=== PATIENT | male | born 1930 | race Caucasian/White ===

== ENCOUNTER 2017-07-03 10:24 | Inpatient (IN) | payer MEDICARE, OTHER ==
[~2017-07-03] VITALS: Ht 177.8 cm; Wt 112.2 kg
[~2017-07-03 10:24] MED LIST: ACET325T9 PO; APIX2.5T PO; ATOR20TA58 PO; CLON0.5T3 PO; CLOP75TA57 PO; DILT180C29 PO; DOCU-109 PO; FLUT9.9S NS; FURO-68 PO; FURO40TA4 PO; IPRA12.9 IH; IPRA3AMP NEB; LACT1CAP19 PO; LEVO500T59 PO; METH40VI IV; METO50TA6 PO; NIAC500T PO; OSEL75CA PO; POLY17PO5 PO; PRED-220 PO; SIMV40TA3 PO; TIOT18CA IH
[2017-07-03 10:56] VITALS: BP 146/64
[2017-07-03] MEDS ORDERED: ONDANSETRON ODT 4 MG TAB.RAPDIS PO PRN (11:00)
[2017-07-03] MEDS ORDERED: ACETAMINOPHEN 325 MG TABLET PO PRN (11:00)
--- NOTE | 2017-07-03 11:06 | NUR ---
Swing admission note: PT admitted to shelter services for PT/OT strengthening and steroid therapy. See completed assessment per flow sheet No behaviors noted this shift, pt is axox4 Pain: Pt has no complaints of pain Respiratory: Pt is on 2 L of oxygen therapy at home as well. PT is getting breathing treatments four times per day r/t COPD exacerbation Skin: Patient skin in friable, however intact. PT has some minor bruising noted. ADL functional Status: Required limited assistance with ADL. PT is a stand by assist when ambulating with his walker. PT walking to shower and completing shower with some assistance from FIBER DESIGNER. PT is using shower chair. PT/OT notified of orders. Family very involved in patient care. Brenna Martinez RN BSN CMSRN [place]-
--- NOTE | 2017-07-03 11:10 | NUR ---
Swing Bed Nursing Note Patient Handbook for Long Term given to patient. Nursing Problem:Patient admitted to Long Term Unit for PT/OT eval and treat. PT was in the hospital from COPD Exacerbation and went in to AFIB RVR. PT has now converted to SR. PT is on home Oxygen therapy at 2L. Cognitive/Behavioral: PT felder Ax0x4. PT compliant with medications and appropriate to situation. . Pain: PT has no complaint of pain. Patient takes scheduled tylenol at HS. Respiratory Status: PT COPD exacerbation. PT on home O2 therapy continuous 2 L. PT is getting RT Duoneb treatment QID while in hospital, r/t substitution for inhalers. PT on solumedrol 40 IV daily. PO Levaquin initiated today. Skin:PT skin is friable, however, intact. PT has minimal bruising. Bowel/Bladder Continence:PT is continent of bowel and bladder and is able to ambulate to the restroom. ADL Functional Status: PT is able to transfer into and out of bed with minimal assistance. PT uses a walker to ambulate with stand by assistance. PT can feed himself, and wipe his bottom when using restroom. PT needs some assistance with showering. Pt uses shower chair when in shower. PT is able to dress self, however, still requires some assistance getting dressed. PT gets SOB when ambulating far distances. Collin VALIENTE CMSRN [facility] Addendum: 07/03/17 at 1136 by COLLIN BARRERA RN PT was also diagnosed with influenza A late into his stay in ICU yesterday. PT is on airborn precautions and started on tamiflu.
[2017-07-03] MEDS ORDERED: IPRATRPIUM/ALBUTEROL 0.5/2.5MG 3 ML NEBU. ONE (11:24)
[2017-07-03] MEDS: levoFLOXacin 250 MG TABLET PO SCH (11:30)
[2017-07-03] MEDS: clonazePAM 0.5 MG TABLET PO SCH ×2 (14:00→22:08)
[2017-07-03 14:26] VITALS: BP 115/72
[2017-07-03] MEDS: IPRATRPIUM/ALBUTEROL 0.5/2.5MG 3 ML NEBU. NEB SCH ×2 (16:58→21:02)
[2017-07-03] MEDS: ACETAMINOPHEN 325 MG TABLET PO SCH (22:06)
[2017-07-03] MEDS: DOCUSATE SODIUM 100 MG CAPSULE PO SCH (22:06)
[2017-07-03] MEDS: METOPROLOL TART IMMED RELEASE 50 MG TABLET PO SCH (22:07)
[2017-07-03] MEDS: OSELTAMIVIR 75 MG CAPSULE PO SCH (22:07)
[2017-07-03] MEDS: APIXABAN 2.5 MG TABLET PO SCH (22:08)
[2017-07-03] MEDS: ATORVASTATIN CALCIUM 20 MG TABLET PO SCH (22:08)
[2017-07-03] MEDS: LACTOBACILLUS RHAMNOSUS GG 1 CAPSULE. PO SCH (22:09)
[2017-07-03 22:31] VITALS: BP 149/78
[2017-07-04 00:02] VITALS: BP 136/65
[2017-07-04 05:17] VITALS: BP 126/65
[2017-07-04] MEDS: levoFLOXacin 250 MG TABLET PO SCH (05:32)
[2017-07-04] MEDS: IPRATRPIUM/ALBUTEROL 0.5/2.5MG 3 ML NEBU. NEB SCH ×3 (05:47→21:46)
[2017-07-04] MEDS: LACTOBACILLUS RHAMNOSUS GG 1 CAPSULE. PO SCH ×2 (08:33→19:35)
[2017-07-04] MEDS: OSELTAMIVIR 75 MG CAPSULE PO SCH ×2 (08:33→19:35)
[2017-07-04] MEDS: METOPROLOL TART IMMED RELEASE 50 MG TABLET PO SCH ×2 (08:33→19:35)
[2017-07-04] MEDS: DOCUSATE SODIUM 100 MG CAPSULE PO SCH ×2 (08:33→19:36)
[2017-07-04] MEDS: clonazePAM 0.5 MG TABLET PO SCH ×3 (08:33→19:36)
[2017-07-04] MEDS: APIXABAN 2.5 MG TABLET PO SCH ×2 (08:33→19:38)
[2017-07-04] MEDS: FUROSEMIDE 40 MG TABLET PO SCH (08:34)
[2017-07-04] MEDS: POLYETHYLENE GLYCOL 3350 17 GM PACKET. PO SCH (08:34)
[2017-07-04] MEDS: CLOPIDOGREL BISULFATE 75 MG TABLET PO SCH (08:34)
[2017-07-04] MEDS: methylPREDNISolone SOD SUCC PF 40 MG/ML VIAL. IV SCH (08:34)
--- NOTE | 2017-07-04 10:54 | NUR ---
Swing Bed Nursing Note Nursing Problem: generalized weakness and unsteadiness after recent hospitalization for copd exac. pt stayed for pt/ot for strengthening to return home alone Cognitive/Behavioral: x4, pleasant and cooperative Pain: no c/o pain Respiratory Status: diminished soa with exertion, lungs with less coarseness throughout, O2 at 2 L/min as at home, cont RT treatments TID Skin: thin and fragile, dry and scaly Bowel/Bladder Continence: cont of bowel and bladder ADL Functional Status: standby assist with walker for amb, pt feeds self, dresses self with setup,
[2017-07-04 18:40] VITALS: BP 133/59
[2017-07-04] MEDS: ATORVASTATIN CALCIUM 20 MG TABLET PO SCH (19:35)
[2017-07-04] MEDS: ACETAMINOPHEN 325 MG TABLET PO SCH (19:36)
--- NOTE | 2017-07-05 00:56 | NUR ---
Swing Bed Nursing Note Patient Handbook for [facility] given to patient. Nursing Problem:Patient admitted to [facility] for PT/OT eval and treat. Cognitive/Behavioral: PT felder Ax0x4. PT compliant with medications and appropriate to situation. . Pain: PT has no complaint of pain. Patient takes scheduled tylenol at HS. Respiratory Status: PT COPD exacerbation. PT on home O2 therapy continuous 2 L. PT is getting RT Duoneb treatment QID while in hospital, r/t substitution for inhalers. PT on solumedrol 40 IV daily. PO Levaquin initiated today. Skin:PT skin is friable, however, intact. PT has minimal bruising. Bowel/Bladder Continence:PT is continent of bowel and bladder and is able to ambulate to the restroom with 1 Assist with the walker. Patient has some problems with hesitancy. ADL Functional Status: PT is able to transfer into and out of bed with minimal assistance. PT uses a walker to ambulate with stand by assistance. PT can feed himself, and wipe his bottom when using restroom. Patient does require some assistance getting dressed. PT gets SOB when ambulating far distances.
[2017-07-05] MEDS: levoFLOXacin 250 MG TABLET PO SCH ×2 (05:05→08:56)
[2017-07-05 05:38] VITALS: BP 161/64
[2017-07-05] MEDS: IPRATRPIUM/ALBUTEROL 0.5/2.5MG 3 ML NEBU. NEB SCH ×3 (05:59→22:07)
[2017-07-05] MEDS: APIXABAN 2.5 MG TABLET PO SCH ×2 (08:56→20:49)
[2017-07-05] MEDS: FUROSEMIDE 40 MG TABLET PO SCH (08:56)
[2017-07-05] MEDS: LACTOBACILLUS RHAMNOSUS GG 1 CAPSULE. PO SCH ×2 (08:56→20:49)
[2017-07-05] MEDS: clonazePAM 0.5 MG TABLET PO SCH ×4 (08:56→20:49)
[2017-07-05] MEDS: DOCUSATE SODIUM 100 MG CAPSULE PO SCH ×2 (08:56→20:50)
[2017-07-05] MEDS: OSELTAMIVIR 75 MG CAPSULE PO SCH ×2 (08:57→20:49)
[2017-07-05] MEDS: POLYETHYLENE GLYCOL 3350 17 GM PACKET. PO SCH (08:57)
[2017-07-05] MEDS: METOPROLOL TART IMMED RELEASE 50 MG TABLET PO SCH ×2 (08:57→20:49)
[2017-07-05] MEDS: methylPREDNISolone SOD SUCC PF 40 MG/ML VIAL. IV SCH (08:57)
[2017-07-05] MEDS: CLOPIDOGREL BISULFATE 75 MG TABLET PO SCH (08:57)
[2017-07-05 18:37] VITALS: BP 138/73
[2017-07-05] MEDS: ACETAMINOPHEN 325 MG TABLET PO SCH (20:49)
[2017-07-05] MEDS: ATORVASTATIN CALCIUM 20 MG TABLET PO SCH (20:49)
--- NOTE | 2017-07-06 04:01 | NUR ---
Swing Bed Nursing Note Patient Handbook for Senior Living given to patient. Nursing Problem:Patient admitted to Senior Living Unit for PT/OT eval and treat. Cognitive/Behavioral: PT felder Ax0x4. PT compliant with medications and appropriate to situation. . Pain: PT has no complaint of pain. Patient takes scheduled tylenol at HS. Respiratory Status: PT COPD exacerbation. PT on home O2 therapy continuous 2 L. PT is getting RT Duoneb treatment QID while in hospital, r/t substitution for inhalers. PT on solumedrol 40 IV daily. PO Levaquin initiated today. Skin:PT skin is friable, however, intact. PT has minimal bruising. Bowel/Bladder Continence:PT is continent of bowel and bladder and is able to ambulate to the restroom with 1 Assist with the walker. Patient has some problems with hesitancy. ADL Functional Status: PT is able to transfer into and out of bed with minimal assistance. PT uses a walker to ambulate with stand by assistance. PT can feed himself, and wipe his bottom when using restroom. Patient does require some assistance getting dressed. PT gets SOB when ambulating far distances.
[2017-07-06 05:41] VITALS: BP 147/65
[2017-07-06] MEDS: IPRATRPIUM/ALBUTEROL 0.5/2.5MG 3 ML NEBU. NEB SCH ×3 (05:54→20:05)
[2017-07-06] MEDS: methylPREDNISolone SOD SUCC PF 40 MG/ML VIAL. IV SCH (08:38)
[2017-07-06] MEDS: clonazePAM 0.5 MG TABLET PO SCH ×3 (08:38→20:09)
[2017-07-06] MEDS: FUROSEMIDE 40 MG TABLET PO SCH (08:38)
[2017-07-06] MEDS: LACTOBACILLUS RHAMNOSUS GG 1 CAPSULE. PO SCH ×2 (08:38→20:10)
[2017-07-06] MEDS: DOCUSATE SODIUM 100 MG CAPSULE PO SCH ×2 (08:38→20:10)
[2017-07-06] MEDS: METOPROLOL TART IMMED RELEASE 50 MG TABLET PO SCH ×2 (08:38→20:10)
[2017-07-06] MEDS: APIXABAN 2.5 MG TABLET PO SCH ×2 (08:38→20:09)
[2017-07-06] MEDS: POLYETHYLENE GLYCOL 3350 17 GM PACKET. PO SCH (08:38)
[2017-07-06] MEDS: OSELTAMIVIR 75 MG CAPSULE PO SCH ×2 (08:39→20:10)
[2017-07-06] MEDS: CLOPIDOGREL BISULFATE 75 MG TABLET PO SCH (08:39)
--- NOTE | 2017-07-06 09:42 | NUR ---
Swing Bed Nursing Note Patient Handbook for Group Home given to patient. Nursing Problem:Patient admitted to Group Home Unit for PT/OT eval and treat. Cognitive/Behavioral: PT felder Ax0x4. PT compliant with medications and appropriate to situation. . Pain: PT has no complaint of pain. Patient takes scheduled tylenol at HS. Respiratory Status: PT COPD exacerbation. PT on home O2 therapy continuous 2 L. PT is getting RT Duoneb treatment QID while in hospital, r/t substitution for inhalers. PT on solumedrol 40 IV daily. Is on PO levaquin. Pt reports having difficulty coughing sputum up. Pt does sound more coarse in anterior lung. Skin:PT skin is friable, however, intact. PT has minimal bruising. Bowel/Bladder Continence:PT is continent of bowel and bladder and is able to ambulate to the restroom with 1 Assist with the walker. Patient has some problems with hesitancy. ADL Functional Status: PT is able to transfer into and out of bed with minimal assistance. PT uses a walker to ambulate with stand by assistance. PT can feed himself, and wipe his bottom when using restroom. Patient does require some assistance getting dressed. PT gets SOB when ambulating far distances.
[2017-07-06 18:35] VITALS: BP 120/67
[2017-07-06 19:38] VITALS: BP 132/60
[2017-07-06] MEDS: ACETAMINOPHEN 325 MG TABLET PO SCH (20:10)
[2017-07-06] MEDS: ATORVASTATIN CALCIUM 20 MG TABLET PO SCH (20:10)
--- NOTE | 2017-07-07 01:38 | NUR ---
Swing Bed Nursing Note Patient Handbook for Group Home given to patient. Nursing Problem:Patient admitted to Group Home Unit for PT/OT eval and treat. Cognitive/Behavioral: PT felder Ax0x4. PT compliant with medications and appropriate to situation. Very pleasant and talkative, seems to be in good spirits. Pain: PT has no complaint of pain. Patient takes scheduled tylenol at HS. Respiratory Status: PT COPD exacerbation. PT on home O2 therapy continuous 2 L. PT is getting RT Duoneb treatment QID while in hospital, r/t substitution for inhalers. PT on solumedrol 40 IV daily. PO Levaquin as well as getting tamaflu. He was started on musinex today. Skin:PT skin is friable, however, intact. PT has minimal bruising. Bowel/Bladder Continence:PT is continent of bowel and bladder and is able to ambulate to the restroom with 1 Assist with the walker. Patient has some problems with hesitancy. Last BM was today, it was loose, asked that I hold his colace. ADL Functional Status: PT is able to transfer into and out of bed with minimal assistance. PT uses a walker to ambulate with stand by assistance. PT can feed himself, and wipe his bottom when using restroom. Patient does require some assistance getting dressed. PT gets SOB when ambulating far distances.
[2017-07-07] MEDS: levoFLOXacin 250 MG TABLET PO SCH (05:20)
[2017-07-07] MEDS: IPRATRPIUM/ALBUTEROL 0.5/2.5MG 3 ML NEBU. NEB SCH ×3 (05:42→20:17)
[2017-07-07] MEDS: METOPROLOL TART IMMED RELEASE 50 MG TABLET PO SCH ×2 (08:22→21:04)
[2017-07-07] MEDS: CLOPIDOGREL BISULFATE 75 MG TABLET PO SCH (08:22)
[2017-07-07] MEDS: FUROSEMIDE 40 MG TABLET PO SCH (08:22)
[2017-07-07] MEDS: clonazePAM 0.5 MG TABLET PO SCH ×3 (08:22→21:04)
[2017-07-07] MEDS: APIXABAN 2.5 MG TABLET PO SCH ×2 (08:22→21:04)
[2017-07-07] MEDS: OSELTAMIVIR 75 MG CAPSULE PO SCH ×2 (08:23→21:04)
[2017-07-07] MEDS: DOCUSATE SODIUM 100 MG CAPSULE PO SCH ×2 (08:23→21:04)
[2017-07-07] MEDS: LACTOBACILLUS RHAMNOSUS GG 1 CAPSULE. PO SCH ×2 (08:23→21:03)
[2017-07-07] MEDS: methylPREDNISolone SOD SUCC PF 40 MG/ML VIAL. IV SCH (08:23)
[2017-07-07] MEDS: POLYETHYLENE GLYCOL 3350 17 GM PACKET. PO SCH (09:00)
[2017-07-07 10:44] VITALS: BP 117/62
[2017-07-07 15:27] VITALS: BP 124/77
--- NOTE | 2017-07-07 18:03 | NUR ---
Swing Bed Nursing Note Nursing Problem:Patient admitted to [facility] Unit for PT/OT eval and treat. Cognitive/Behavioral: PT felder Ax0x4. PT compliant with medications and appropriate to situation. Very pleasant and talkative, seems to be in good spirits. Pain: PT has no complaint of pain. Patient takes scheduled tylenol at HS. Respiratory Status: PT COPD exacerbation. PT on home O2 therapy continuous 2 L. PT is getting RT Duoneb treatment QID while in hospital, r/t substitution for inhalers. PT on solumedrol 40 IV daily. PO Levaquin as well as getting tamiflu. He was started on musinex today. Skin:PT skin is friable, however, intact. PT has minimal bruising. Bowel/Bladder Continence:PT is continent of bowel and bladder and is able to ambulate to the restroom with 1 Assist with the walker. Patient has some problems with hesitancy. Last BM was today, it was loose, asked that I hold his miralax ADL Functional Status: PT is able to transfer into and out of bed with minimal assistance. PT uses a walker to ambulate with stand by assistance. PT can feed himself, and wipe his bottom when using restroom. Patient does require some assistance getting dressed. PT gets SOB when ambulating far distances.
[2017-07-07 19:33] VITALS: BP 132/70
[2017-07-07] MEDS: ACETAMINOPHEN 325 MG TABLET PO SCH (21:04)
[2017-07-07] MEDS: ATORVASTATIN CALCIUM 20 MG TABLET PO SCH (21:04)
--- NOTE | 2017-07-07 22:19 | NUR ---
Swing Bed Nursing Note Nursing Problem: Patient admitted to [facility]-Way Unit for PT/OT eval and treat. Cognitive/Behavioral: Pt is A/Ox4, pleasant. Sitting up in chair watching TV, smiling and interactive when approached by staff. Pain: Pt denies current pain. Given scheduled tylenol at HS. Respiratory Status: Pt with COPD exac. Wears O2 at 2L via NC continuously. Receiving breathing tx from RT, Solu-Medrol 40mg IV daily, Tamiflu, and PO Levaquin. Lung sounds are coarse and diminished. Pt c/o productive cough. Given PRN Mucinex at HS. Skin: Pt's skin is dry, thin and fragile/friable. Coccyx intact. Noted minimal bruising to extremities. Bowel/Bladder Continence: Pt is continent of bowel and bladder and ambulates to bathroom x1 assist. Patient has some problems with urinary hesitancy. LBM today, 07/07/16. ADL Functional Status: Pt is able to transfer into and out of bed with minimal assistance. Pt uses a walker to amb with standby assistance. Pt declined HS snack. Pt dressed for HS with min assist.
[2017-07-08 05:47] VITALS: BP 131/68
[2017-07-08] MEDS: levoFLOXacin 250 MG TABLET PO SCH (05:55)
[2017-07-08] MEDS: IPRATRPIUM/ALBUTEROL 0.5/2.5MG 3 ML NEBU. NEB SCH ×3 (05:58→20:19)
[2017-07-08] MEDS: methylPREDNISolone SOD SUCC PF 40 MG/ML VIAL. IV SCH (08:51)
[2017-07-08] MEDS: DOCUSATE SODIUM 100 MG CAPSULE PO SCH ×2 (08:52→20:30)
[2017-07-08] MEDS: clonazePAM 0.5 MG TABLET PO SCH ×3 (08:52→20:30)
[2017-07-08] MEDS: OSELTAMIVIR 75 MG CAPSULE PO SCH (08:53)
[2017-07-08] MEDS: POLYETHYLENE GLYCOL 3350 17 GM PACKET. PO SCH (08:53)
[2017-07-08] MEDS: LACTOBACILLUS RHAMNOSUS GG 1 CAPSULE. PO SCH ×2 (08:53→20:30)
[2017-07-08] MEDS: CLOPIDOGREL BISULFATE 75 MG TABLET PO SCH (08:53)
[2017-07-08] MEDS: METOPROLOL TART IMMED RELEASE 50 MG TABLET PO SCH ×2 (08:53→20:31)
[2017-07-08] MEDS: FUROSEMIDE 40 MG TABLET PO SCH (08:53)
[2017-07-08] MEDS: APIXABAN 2.5 MG TABLET PO SCH ×2 (08:53→20:30)
[2017-07-08 10:48] VITALS: BP 168/66
[2017-07-08 15:51] VITALS: BP 115/74
[2017-07-08] MEDS ORDERED: FUROSEMIDE 40 MG TABLET PO ONE (16:30)
[2017-07-08] MEDS: ACETAMINOPHEN 325 MG TABLET PO SCH (20:31)
[2017-07-08] MEDS: ATORVASTATIN CALCIUM 20 MG TABLET PO SCH (20:31)
--- NOTE | 2017-07-08 22:07 | NUR ---
Swing Bed Nursing Note Nursing Problem: Patient admitted to [facility] for PT/OT eval and treat. Cognitive/Behavioral: Pt is A/Ox4, pleasant. Pt up in chair, watching basketball game on TV. Talkative when approached. Pain: Pt denies current pain. Given scheduled tylenol at HS. Respiratory Status: Pt with COPD exac. Wears O2 at 2L via NC continuously. Receiving breathing tx from RT, Solu-Medrol 40mg IV daily, Tamiflu, and PO Levaquin. Lung sounds are coarse, diminished and increased wheezing noted. Pt c/o productive cough. Given PRN Mucinex at HS. Pt's lasix increased from 40mg daily to 80mg. Skin: Pt's skin is dry, thin and fragile/friable. Coccyx intact. Noted minimal bruising to extremities. Pt has 3+ edema to bilat extremities. Bowel/Bladder Continence: Pt is continent of bowel and bladder and ambulates to bathroom x1 assist. Patient has some problems with urinary hesitancy. LBM 07/07/16. ADL Functional Status: Pt is able to transfer into and out of bed with minimal assistance. Pt uses a walker to amb with standby assistance. Pt declined HS snack. Pt dressed for HS with min assist.
[2017-07-09] MEDS: levoFLOXacin 250 MG TABLET PO SCH (05:15)
[2017-07-09 05:31] VITALS: BP 116/70
[2017-07-09] MEDS: IPRATRPIUM/ALBUTEROL 0.5/2.5MG 3 ML NEBU. NEB SCH ×3 (05:51→20:34)
--- NOTE | 2017-07-09 08:16 | RAD ---
Indication: Short of air. Technique: Two-view chest radiograph was obtained. Comparison is from July 01, 2017. Findings: There is left basilar atelectasis and/ or infiltrate, new from prior. Lungs otherwise are clear. There is no pleural effusion. The heart is not enlarged. There is no heart failure. Thoracic aorta appears tortuous. Impression: New left basilar atelectasis and/or infiltrate.
[2017-07-09] MEDS: clonazePAM 0.5 MG TABLET PO SCH ×3 (08:23→20:44)
[2017-07-09] MEDS: LACTOBACILLUS RHAMNOSUS GG 1 CAPSULE. PO SCH ×2 (08:23→20:44)
[2017-07-09] MEDS: METOPROLOL TART IMMED RELEASE 50 MG TABLET PO SCH ×2 (08:23→20:44)
[2017-07-09] MEDS: methylPREDNISolone SOD SUCC PF 40 MG/ML VIAL. IV SCH (08:24)
[2017-07-09] MEDS: CLOPIDOGREL BISULFATE 75 MG TABLET PO SCH (08:24)
[2017-07-09] MEDS: FUROSEMIDE 40 MG TABLET PO SCH (08:24)
[2017-07-09] MEDS: APIXABAN 2.5 MG TABLET PO SCH ×2 (08:25→20:44)
[2017-07-09] MEDS: DOCUSATE SODIUM 100 MG CAPSULE PO SCH ×2 (08:27→20:44)
[2017-07-09] MEDS: POLYETHYLENE GLYCOL 3350 17 GM PACKET. PO SCH (08:27)
--- NOTE | 2017-07-09 13:20 | NUR ---
Swing Bed Nursing Note Nursing Problem: Patient admitted to [facility] Unit for PT/OT eval and treat. Cognitive/Behavioral: Pt is A/Ox4, pleasant. Pt is currently sitting up in chair watching television. Pain: Pt denies current pain. Respiratory Status: Pt with COPD exac. Wears O2 at 2L via NC continuously. Receiving breathing tx from RT, Solu-Medrol 40mg IV daily, Tamiflu, and PO Levaquin. Lung sounds are coarse, diminished and increased wheezing noted. Lasix given PO this AM changed to 80mg. Skin: Pt's skin is dry, thin and fragile/friable. Coccyx intact. Noted minimal bruising to extremities. Pt has 3+ edema to bilat extremities. Bowel/Bladder Continence: Pt is continent of bowel and bladder and ambulates to bathroom x1 assist. Patient has some problems with urinary hesitancy. LBM 07/08 ADL Functional Status: Pt is able to transfer into and out of bed with minimal assistance. Pt uses a walker to amb with standby assistance. Dressed with PT/OT today with minimal assist.
[2017-07-09 15:38] VITALS: BP 126/82
[2017-07-09] MEDS: ATORVASTATIN CALCIUM 20 MG TABLET PO SCH (20:44)
[2017-07-09] MEDS: ACETAMINOPHEN 325 MG TABLET PO SCH (20:46)
[2017-07-10] MEDS: IPRATRPIUM/ALBUTEROL 0.5/2.5MG 3 ML NEBU. NEB SCH ×3 (05:21→20:49)
[2017-07-10] MEDS: levoFLOXacin 250 MG TABLET PO SCH (05:29)
[2017-07-10 05:52] VITALS: BP 135/71
--- NOTE | 2017-07-10 08:00 | NUR ---
Swing Bed Nursing Note Nursing Problem: Patient admitted to Care Home Unit for PT/OT eval and treat for gait strengthening. Cognitive/Behavioral: Pt is A/Ox4, pleasant and cooperative with care. Pt sitting up at bedside eating breakfast this morning. Pain: Pt denies current pain. Respiratory Status: Pt has COPD exac. and currently wears O2 at 2L via NC continuously. Continues to receive breathing tx from RT and PO Levaquin. Tamiflu completed and IV SoluMedrol changed to PO prednisone. Lung sounds remain coarse, diminished and wheezy at times noted. Lasix 80mg given PO this AM. Skin: Pt's skin is dry, thin and fragile/friable. Coccyx intact. Noted minimal bruising to extremities. Pt has 3+ edema to bilat extremities. Legs wrapped this morning, advised patient that legs should be wrapped every morning and elevate L.E. to help decrease edema. Bowel/Bladder Continence: Pt is continent of bowel and bladder and ambulates to bathroom x1 assist. Patient has some problems with urinary hesitancy. Able to stand to use urinal. LBM 07/08 ADL Functional Status: Pt is able to transfer into and out of bed with minimal assistance. Pt uses a walker to amb with standby assistance. Dressed with PT/OT today with minimal assist.
[2017-07-10 08:03] LABS: BASO # 0.1 x10^3/uL (0.0-0.2); BASO % 1 % (0-3); EOS % 0 % (0-3); HEMATOCRIT 41.5 % (39.0-53.0); LYMPH # 1.5 x10^3/uL (1.0-4.8); LYMPH % 16 % (24-48); MEAN CORPUSCULAR HEMOGLOBIN 32 pg (25-35); MEAN CORPUSCULAR HGB CONC 34 g/dL (31-37); MEAN CORPUSCULAR VOLUME 95 fL (79-100); MONO # 0.9 x10^3/uL (0.0-1.1); MONO % 10 % (0-9); NEUT # 6.8 x10^3uL (1.8-7.7); NEUT % 73 % (31-73); PLATELET COUNT 184 x10^3/uL (140-400); RED BLOOD COUNT 4.39 x10^6/uL (4.30-5.70); RED CELL DISTRIBUTION WIDTH 12.6 % (11.5-14.5); WHITE BLOOD COUNT 9.3 x10^3/uL (4.0-11.0)
[2017-07-10 08:13] LABS: ALBUMIN 2.8 g/dL (3.4-5.0); ALBUMIN/GLOBULIN RATIO 0.9 (1.0-1.7); CALCIUM 8.6 mg/dL (8.5-10.1); CREATININE 1.6 mg/dL (0.7-1.3); POTASSIUM 4.5 mmol/L (3.5-5.1); TOTAL BILIRUBIN 0.5 mg/dL (0.2-1.0); TOTAL PROTEIN 5.9 g/dL (6.4-8.2)
[2017-07-10] MEDS: clonazePAM 0.5 MG TABLET PO SCH ×3 (09:03→21:11)
[2017-07-10] MEDS: POLYETHYLENE GLYCOL 3350 17 GM PACKET. PO SCH (09:03)
[2017-07-10] MEDS: LACTOBACILLUS RHAMNOSUS GG 1 CAPSULE. PO SCH ×2 (09:03→21:12)
[2017-07-10] MEDS: CLOPIDOGREL BISULFATE 75 MG TABLET PO SCH (09:03)
[2017-07-10] MEDS: APIXABAN 2.5 MG TABLET PO SCH ×2 (09:04→21:11)
[2017-07-10] MEDS: FUROSEMIDE 40 MG TABLET PO SCH (09:05)
[2017-07-10] MEDS: METOPROLOL TART IMMED RELEASE 50 MG TABLET PO SCH ×2 (09:05→21:11)
[2017-07-10] MEDS: DOCUSATE SODIUM 100 MG CAPSULE PO SCH ×2 (09:05→21:13)
[2017-07-10 15:02] VITALS: BP 108/71
--- NOTE | 2017-07-10 19:37 | NUR ---
Swing Bed Nursing Note Nursing Problem: Patient admitted to Intermediate Unit for PT/OT eval and treat for gait strengthening. Cognitive/Behavioral: Pt is A/Ox4, pleasant and cooperative with care. Pt resting in bed at this time. Pain: Pt denies current pain. Respiratory Status: Pt has COPD exac. and currently wears O2 at 2L via NC continuously. Continues to receive breathing tx from RT and PO Levaquin. PO prednisone ordered. Lung sounds remain coarse, diminished and wheezy at times noted. Skin: Pt's skin is dry, thin and fragile/friable. Coccyx intact. Noted minimal bruising to extremities. Pt has 3+ edema to bilat extremities. Legs are wrapped at this time, advised patient that legs should remain wrapped and elevate L.E. to help decrease edema. Bowel/Bladder Continence: Pt is continent of bowel and bladder and ambulates to bathroom x1 assist. Patient has some problems with urinary hesitancy. Able to stand to use urinal. LBM 07/10 ADL Functional Status: Pt is able to transfer into and out of bed with minimal assistance. Pt uses a walker to amb with standby assistance. Dressed with PT/OT today with minimal assist.
[2017-07-10 20:41] VITALS: BP 148/97
[2017-07-10] MEDS: ATORVASTATIN CALCIUM 20 MG TABLET PO SCH (21:11)
[2017-07-10] MEDS: ACETAMINOPHEN 325 MG TABLET PO SCH (21:12)
[2017-07-11] MEDS: levoFLOXacin 250 MG TABLET PO SCH (05:07)
[2017-07-11 06:03] VITALS: BP 138/67
[2017-07-11] MEDS: IPRATRPIUM/ALBUTEROL 0.5/2.5MG 3 ML NEBU. NEB SCH ×3 (06:08→21:00)
[2017-07-11] MEDS: DOCUSATE SODIUM 100 MG CAPSULE PO SCH ×2 (09:00→20:50)
[2017-07-11] MEDS: POLYETHYLENE GLYCOL 3350 17 GM PACKET. PO SCH (09:00)
[2017-07-11] MEDS: predniSONE 20 MG TABLET PO SCH (09:43)
[2017-07-11] MEDS: APIXABAN 2.5 MG TABLET PO SCH ×2 (09:43→20:50)
[2017-07-11] MEDS: LACTOBACILLUS RHAMNOSUS GG 1 CAPSULE. PO SCH ×2 (09:43→20:50)
[2017-07-11] MEDS: CLOPIDOGREL BISULFATE 75 MG TABLET PO SCH (09:43)
[2017-07-11] MEDS: clonazePAM 0.5 MG TABLET PO SCH ×3 (09:44→20:50)
[2017-07-11] MEDS: FUROSEMIDE 40 MG TABLET PO SCH (09:44)
[2017-07-11] MEDS: METOPROLOL TART IMMED RELEASE 50 MG TABLET PO SCH ×2 (09:45→20:51)
[2017-07-11 16:09] VITALS: BP 150/80
--- NOTE | 2017-07-11 18:00 | NUR ---
Swing Bed Nursing Note Nursing Problem:[facility] to [facility] for PT/OT eval and treat. Cognitive/Behavioral: PT felder Ax0x4. PT compliant with medications and appropriate to situation. Very pleasant and talkative, seems to be in good spirits. Granddaughter visited and spent many hours with pt Pain: PT has no complaint of pain. Patient takes scheduled tylenol at HS. Respiratory Status: PT COPD exacerbation. PT on home O2 therapy continuous 2 L. PT is getting RT Duoneb treatment QID while in hospital, r/t substitution for inhalers. PT on Prednisone 20 mg po daily. PO Levaquin. He was started on musinex today. Skin:PT skin is friable, however, intact. PT has minimal bruising. Bowel/Bladder Continence:PT is continent of bowel and bladder and is able to ambulate to the restroom with 1 Assist with the walker. Patient has some problems with hesitancy. Last BM was today, it was loose, asked that I hold his miralax ADL Functional Status: PT is able to transfer into and out of bed with minimal assistance. PT uses a walker to ambulate with stand by assistance. PT can feed himself, and wipe his bottom when using restroom. Patient does require some assistance getting dressed. PT gets SOB when ambulating far distances.
[2017-07-11] MEDS: ATORVASTATIN CALCIUM 20 MG TABLET PO SCH (20:50)
[2017-07-11] MEDS: ACETAMINOPHEN 325 MG TABLET PO SCH (20:50)
[2017-07-12] MEDS: IPRATRPIUM/ALBUTEROL 0.5/2.5MG 3 ML NEBU. NEB SCH ×3 (05:29→20:47)
[2017-07-12 05:36] VITALS: BP 116/74
[2017-07-12] MEDS: levoFLOXacin 250 MG TABLET PO SCH (06:05)
--- NOTE | 2017-07-12 06:35 | NUR ---
Swing Bed Nursing Note Nursing Problem:Patient admitted to Long-Term Unit for PT/OT evaluation and treat. Cognitive/Behavioral: PT is alert and oriented x4. PT compliant with medications and appropriate to situation. Very pleasant and talkative, seems to be in good spirits. Family at the bedside most of the evening. Pain: PT has no complaint of pain this shift. Patient takes scheduled tylenol at HS. Respiratory Status: PT COPD exacerbation. PT on home O2 therapy continuous 2 L. PT is getting RT Duoneb treatment QID while in hospital, r/t substitution for inhalers. PT on Prednisone 20 mg po daily. PO Levaquin. He was started on musinex today. Skin:PT skin is friable, however, intact. PT has minimal bruising. Bowel/Bladder Continence:PT is continent of bowel and bladder and is able to ambulate to the restroom with 1 person assist and the walker. Patient also uses the urinal on his own. Patient has some problems with hesitancy. Last BM was stated to be 07/11. ADL Functional Status: PT is able to transfer into and out of bed with minimal assistance. PT uses a walker to ambulate with stand by assistance. PT can feed himself, and wipe his bottom when using restroom. Patient does require some assistance getting dressed. PT gets SOB when ambulating far distances.
[2017-07-12] MEDS: clonazePAM 0.5 MG TABLET PO SCH ×3 (08:51→20:32)
[2017-07-12] MEDS: DOCUSATE SODIUM 100 MG CAPSULE PO SCH ×2 (08:52→20:27)
[2017-07-12] MEDS: predniSONE 20 MG TABLET PO SCH (08:52)
[2017-07-12] MEDS: CLOPIDOGREL BISULFATE 75 MG TABLET PO SCH (08:52)
[2017-07-12] MEDS: LACTOBACILLUS RHAMNOSUS GG 1 CAPSULE. PO SCH ×2 (08:52→20:31)
[2017-07-12] MEDS: FUROSEMIDE 40 MG TABLET PO SCH (08:52)
[2017-07-12] MEDS: METOPROLOL TART IMMED RELEASE 50 MG TABLET PO SCH ×2 (08:52→20:32)
[2017-07-12] MEDS: APIXABAN 2.5 MG TABLET PO SCH ×2 (08:53→20:32)
[2017-07-12] MEDS: POLYETHYLENE GLYCOL 3350 17 GM PACKET. PO SCH (08:54)
[2017-07-12 18:12] VITALS: BP 151/77
[2017-07-12] MEDS: DOXYCYCLINE HYCLATE 100 MG TABLET PO SCH (20:31)
[2017-07-12] MEDS: ACETAMINOPHEN 325 MG TABLET PO SCH (20:32)
[2017-07-12] MEDS: ATORVASTATIN CALCIUM 20 MG TABLET PO SCH (20:32)
--- NOTE | 2017-07-12 21:19 | NUR ---
Swing Bed Nursing Note Nursing Problem:Patient admitted to [facility] Unit for PT/OT evaluation and treat. Cognitive/Behavioral: PT is alert and oriented x4. PT compliant with medications and appropriate to situation. Very pleasant and talkative. Daughter at the bedside this evening. Pain: PT has no complaint of pain this shift. Patient takes scheduled tylenol at HS. Respiratory Status: PT COPD exacerbation. PT on home O2 therapy continuous 2 L. PT is getting RT Duoneb treatment QID while in hospital, r/t substitution for inhalers. Skin:PT skin is friable, however, intact. PT has minimal bruising. Bowel/Bladder Continence:PT is continent of bowel and bladder and is able to ambulate to the restroom with 1 person assist and the walker. Patient also uses the urinal on his own. Patient has some problems with hesitancy. Last BM was stated to be / x2, refused evening Colace. ADL Functional Status: PT is able to transfer into and out of bed with minimal assistance. PT uses a walker to ambulate with stand by assistance. PT can feed himself, and wipe his bottom when using restroom. Patient does require some assistance getting dressed. PT gets SOB when ambulating far distances.
[2017-07-13] MEDS: IPRATRPIUM/ALBUTEROL 0.5/2.5MG 3 ML NEBU. NEB SCH ×3 (05:02→20:25)
[2017-07-13 05:25] VITALS: BP 110/63
[2017-07-13] MEDS: POLYETHYLENE GLYCOL 3350 17 GM PACKET. PO SCH (09:00)
[2017-07-13] MEDS: clonazePAM 0.5 MG TABLET PO SCH ×3 (09:06→21:16)
[2017-07-13] MEDS: APIXABAN 2.5 MG TABLET PO SCH ×2 (09:07→21:16)
[2017-07-13] MEDS: METOPROLOL TART IMMED RELEASE 50 MG TABLET PO SCH ×2 (09:07→21:17)
[2017-07-13] MEDS: LACTOBACILLUS RHAMNOSUS GG 1 CAPSULE. PO SCH ×2 (09:07→21:16)
[2017-07-13] MEDS: DOCUSATE SODIUM 100 MG CAPSULE PO SCH ×2 (09:08→21:16)
[2017-07-13] MEDS: predniSONE 10 MG TABLET PO SCH (09:08)
[2017-07-13] MEDS: DOXYCYCLINE HYCLATE 100 MG TABLET PO SCH ×2 (09:08→21:19)
[2017-07-13] MEDS: CLOPIDOGREL BISULFATE 75 MG TABLET PO SCH (09:08)
[2017-07-13] MEDS: FUROSEMIDE 40 MG TABLET PO SCH (09:08)
--- NOTE | 2017-07-13 11:09 | PN ---
DATE: 07/12/2017 SUBJECTIVE: An 86-year-old male [facility] skilled unit rehab, doing fairly well. Says he feels fairly much better. Chest x-ray repeated yesterday shows possible new infiltrative process. We will change him over to doxycycline. Otherwise, the patient himself says he feels a little better, looks a little stronger. SUBJECTIVE: VITAL SIGNS: Blood pressure 120/70, respiratory rate 20, pulse 48, afebrile, oxygen saturation better. LUNGS: Diminished, some crackles and wheezing noted in the bases, otherwise continue with the prednisone and also doxycycline and will continue with breathing treatments as indicated. IMPRESSION: Acute exacerbation of chronic obstructive pulmonary disease with acute pulmonary infiltrative processes. JOÃO GILES MD DR: CARISSA/jaida JOB#: [id number] / [id number]
[2017-07-13 15:54] VITALS: BP 128/63
[2017-07-13 19:12] VITALS: BP 155/86
[2017-07-13] MEDS: ACETAMINOPHEN 325 MG TABLET PO SCH (21:16)
[2017-07-13] MEDS: ATORVASTATIN CALCIUM 20 MG TABLET PO SCH (21:16)
--- NOTE | 2017-07-14 01:00 | NUR ---
Swing Bed Nursing Note Nursing Problem:Pt admitted to [facility] Unit for PT/OT eval and treat. Cognitive/Behavioral: Pt is A&0x4. Pt is calm & cooperative with assessments and cares. Pt sitting up in chair watching TV with legs elevated at change of shift. Pt is very pleasant and talkative. Pain: No complaint of pain. Patient takes scheduled Tylenol at HS. Respiratory Status: Pt on home O2 therapy @ 2 L. Pt is getting RT treatment TID. Pt gets SOA when activity. Cough noted with scant amount of caballero sputum. Skin: Skin is friable/thin but intact. Pt in minimal bruising. Pt with 3+ edema to bilateral feet/ankles, wraps removed at HS. Bowel/Bladder Continence: PT is continent of bowel and bladder and is able to ambulate to the restroom with walker. Pt can use urinal independently but has some problems with hesitancy, especially when staff is in the room. Last BM 07/13. Pt took his HS Colace. ADL Functional Status: Pt is able to transfer into and out of bed with minimal assistance. Pt needs assistance with reclining the chair. Pt uses a walker with ambulation & stand by assistance. Pt eat independently. Pt can perform mehul-care and wipe his bottom when using the restroom. Pt does require some assistance getting dressed. Pt takes medications whole.
[2017-07-14] MEDS: IPRATRPIUM/ALBUTEROL 0.5/2.5MG 3 ML NEBU. NEB SCH ×3 (05:18→19:48)
[2017-07-14 05:48] VITALS: BP 137/97
[2017-07-14] MEDS: POLYETHYLENE GLYCOL 3350 17 GM PACKET. PO SCH (09:00)
[2017-07-14] MEDS: LACTOBACILLUS RHAMNOSUS GG 1 CAPSULE. PO SCH ×2 (09:14→20:53)
[2017-07-14] MEDS: DOCUSATE SODIUM 100 MG CAPSULE PO SCH ×2 (09:14→20:53)
[2017-07-14] MEDS: FUROSEMIDE 40 MG TABLET PO SCH (09:15)
[2017-07-14] MEDS: clonazePAM 0.5 MG TABLET PO SCH ×3 (09:15→20:53)
[2017-07-14] MEDS: APIXABAN 2.5 MG TABLET PO SCH ×2 (09:15→20:53)
[2017-07-14] MEDS: METOPROLOL TART IMMED RELEASE 50 MG TABLET PO SCH ×2 (09:15→20:53)
[2017-07-14] MEDS: predniSONE 10 MG TABLET PO SCH (09:16)
[2017-07-14] MEDS: DOXYCYCLINE HYCLATE 100 MG TABLET PO SCH ×2 (09:16→20:53)
[2017-07-14] MEDS: CLOPIDOGREL BISULFATE 75 MG TABLET PO SCH (09:16)
[2017-07-14 18:21] VITALS: BP 124/62
[2017-07-14 20:13] VITALS: BP 126/61
[2017-07-14] MEDS: ACETAMINOPHEN 325 MG TABLET PO SCH (20:53)
[2017-07-14] MEDS: ATORVASTATIN CALCIUM 20 MG TABLET PO SCH (20:53)
--- NOTE | 2017-07-14 22:21 | NUR ---
Swing Bed Nursing Note Nursing Problem:Pt admitted to Assisted Unit for PT/OT eval and treat. Cognitive/Behavioral: Pt is A&0x4. Pt is calm & cooperative with assessments and cares. Pt sitting up in chair watching TV with legs elevated at change of shift. Pt is very pleasant and talkative. Pain: No complaint of pain. Patient takes scheduled Tylenol at HS. Respiratory Status: Pt on home O2 therapy @ 2 L. Pt is getting RT treatment TID. Pt gets SOA when activity. Cough noted with scant amount of caballero sputum. Skin: Skin is friable/thin but intact. Pt in minimal bruising. Pt with 3+ edema to bilateral feet/ankles, wraps removed at HS and elevated on pillows. Bowel/Bladder Continence: PT is continent of bowel and bladder and is able to ambulate to the restroom with walker. Pt can use urinal independently but has some problems with hesitancy, especially when staff is in the room. Last BM 07/14. Pt took his HS Colace. ADL Functional Status: Pt is able to transfer into and out of bed with minimal assistance. Pt needs assistance with reclining the chair. Pt uses a walker with ambulation & stand by assistance. Pt eat independently. Pt can perform mehul-care and wipe his bottom when using the restroom. Pt does require some assistance getting dressed. Pt takes medications whole a couple at a time.
[2017-07-15] MEDS: IPRATRPIUM/ALBUTEROL 0.5/2.5MG 3 ML NEBU. NEB SCH ×3 (05:47→21:36)
[2017-07-15 06:33] VITALS: BP 129/74
[2017-07-15] MEDS: DOCUSATE SODIUM 100 MG CAPSULE PO SCH ×2 (08:46→20:22)
[2017-07-15] MEDS: CLOPIDOGREL BISULFATE 75 MG TABLET PO SCH (08:56)
[2017-07-15] MEDS: predniSONE 10 MG TABLET PO SCH (08:56)
[2017-07-15] MEDS: DOXYCYCLINE HYCLATE 100 MG TABLET PO SCH ×2 (08:56→20:21)
[2017-07-15] MEDS: APIXABAN 2.5 MG TABLET PO SCH ×2 (08:56→20:22)
[2017-07-15] MEDS: LACTOBACILLUS RHAMNOSUS GG 1 CAPSULE. PO SCH ×2 (08:56→20:22)
[2017-07-15] MEDS: FUROSEMIDE 40 MG TABLET PO SCH (08:57)
[2017-07-15] MEDS: clonazePAM 0.5 MG TABLET PO SCH ×3 (08:57→20:21)
[2017-07-15] MEDS: METOPROLOL TART IMMED RELEASE 50 MG TABLET PO SCH ×2 (08:58→20:22)
[2017-07-15] MEDS: POLYETHYLENE GLYCOL 3350 17 GM PACKET. PO SCH (08:58)
[2017-07-15 16:18] VITALS: BP 104/51
--- NOTE | 2017-07-15 18:03 | NUR ---
Swing Bed Nursing Note Nursing Problem:PT/OT for strength to return home. Cognitive/Behavioral:Patient pleasant but apprehensive about discharging home tomorrow. Pain: Patient denies pain this shift. Respiratory Status: Patient in on 2 liters oxygen via nasal cannula. Skin: Patient has a blister on the top of his right foot that is covered with a small island dressing. Bowel/Bladder Continence: Patient is continent of both bowel and bladder. ADL Functional Status: Patient requires standby/minimal assist with dressing, transferring, and toileting. Patient is independent when eating.
[2017-07-15 20:19] VITALS: BP 130/68
[2017-07-15] MEDS: ACETAMINOPHEN 325 MG TABLET PO SCH (20:22)
[2017-07-15] MEDS: ATORVASTATIN CALCIUM 20 MG TABLET PO SCH (20:22)
--- NOTE | 2017-07-15 23:05 | NUR ---
Swing Bed Nursing Note Nursing Problem: Pt admitted to [facility] for PT/OT eval and treat. Cognitive/Behavioral: Pt is A&0x4. Pt is calm & cooperative with assessments and cares. Pt sitting up in chair visiting with his daughter at change of shift. Pt is very pleasant and talkative. Pt seemed excited about maybe going home tomorrow with home health but a little apprehensive as well. Staff and daughter gave positive reinforced. Pain: No complaint of pain. Patient takes scheduled Tylenol at HS. Respiratory Status: Pt on O2 therapy @ 2 L NC. Pt is getting RT treatment TID. Pt gets SOA with activity but states that it is much improved. Cough noted with scant amount of cloudy/caballero sputum. Skin: Skin is friable/thin but intact. Pt with minimal bruising. Pt with 3+ edema to bilateral feet/ankles, wraps removed at HS. Bowel/Bladder Continence: Pt is continent of bowel and bladder and is able to ambulate to the restroom with walker. Pt can use urinal independently but has some problems with hesitancy, especially when staff is in the room. Last BM 07/14. Pt took his HS Myla mcallister. ADL Functional Status: Pt is able to transfer into and out of bed/chair with minimal assistance. Pt needs assistance with reclining the chair. Pt uses a walker with ambulation & stand-by assistance. Pt eat independently. Pt can perform mehul-care. Pt does require some assistance getting dressed. Pt takes medications whole.
[2017-07-16] MEDS: IPRATRPIUM/ALBUTEROL 0.5/2.5MG 3 ML NEBU. NEB SCH ×2 (05:44→13:13)
[2017-07-16 06:50] VITALS: BP 120/56
[2017-07-16] MEDS: METOPROLOL TART IMMED RELEASE 50 MG TABLET PO SCH (08:53)
[2017-07-16] MEDS: clonazePAM 0.5 MG TABLET PO SCH (08:53)
[2017-07-16] MEDS: DOCUSATE SODIUM 100 MG CAPSULE PO SCH (08:53)
[2017-07-16] MEDS: LACTOBACILLUS RHAMNOSUS GG 1 CAPSULE. PO SCH (08:53)
[2017-07-16] MEDS: FUROSEMIDE 40 MG TABLET PO SCH (08:53)
[2017-07-16] MEDS: DOXYCYCLINE HYCLATE 100 MG TABLET PO SCH (08:53)
[2017-07-16] MEDS: CLOPIDOGREL BISULFATE 75 MG TABLET PO SCH (08:53)
[2017-07-16] MEDS: POLYETHYLENE GLYCOL 3350 17 GM PACKET. PO SCH (08:53)
[2017-07-16] MEDS: predniSONE 10 MG TABLET PO SCH (08:53)
[2017-07-16] MEDS: APIXABAN 2.5 MG TABLET PO SCH (08:53)
[2017-07-16 10:40] VITALS: BP 107/60
--- NOTE | 2017-07-16 11:31 | NUR ---
Swing Bed Nursing Note Nursing Problem:Patient admitted to Long-Term Unit for PT/OT eval and treat. Cognitive/Behavioral: PT felder Ax0x4. PT compliant with medications and appropriate to situation. Very pleasant and talkative, seems to be in good spirits. Pain: PT has no complaint of pain. Patient takes scheduled tylenol at HS. Respiratory Status: PT COPD exacerbation. PT on home O2 therapy continuous 2 L. PT is getting RT Duoneb treatment TID while in hospital, r/t substitution for inhalers. PT on Prednisone 20 mg po daily. PO Doxycycline. Skin:PT skin is friable, however, intact. PT has minimal bruising. Bowel/Bladder Continence:PT is continent of bowel and bladder and is able to ambulate to the restroom with 1 Assist with the walker. Patient has some problems with hesitancy. Last BM was yesterday 1-16 ADL Functional Status: PT is able to transfer into and out of bed with minimal assistance. PT uses a walker to ambulate with stand by assistance. PT can feed himself, and wipe his bottom when using restroom. Patient does require some assistance getting dressed. PT gets SOB when ambulating far distances. Pt is readying for discharge home today with home health
[2017-07-16] MEDS ORDERED: IPRA3AMP NEB (12:03)
[2017-07-16] MEDS ORDERED: GUAI200T3 PO (12:03)
[2017-07-16] MEDS ORDERED: CLOP75TA PO (12:03)
[2017-07-16] MEDS ORDERED: FURO40TA4 PO (12:03)
[2017-07-16] MEDS ORDERED: ONDA4TAB12 PO (12:03)
[2017-07-16] MEDS ORDERED: DOXY100T PO (12:03)
[2017-07-16] MEDS ORDERED: DILT180C29 PO (12:03)
[2017-07-16] MEDS ORDERED: CLON0.5T3 PO (12:03)
[2017-07-16] MEDS ORDERED: POLY255P PO (12:03)
[2017-07-16] MEDS ORDERED: ACET325T9 PO (12:03)
[2017-07-16] MEDS ORDERED: DOCU100C28 PO (12:03)
[2017-07-16] MEDS ORDERED: PRED-220 PO (12:03)
[2017-07-16] MEDS ORDERED: APIX2.5T PO (12:52)
[2017-07-16] MEDS ORDERED: ATOR20TA58 PO (12:52)
[2017-07-16] MEDS ORDERED: METO50TA6 PO (12:52)
--- NOTE | 2017-07-16 13:49 | NUR ---
NSG NOTE; DISCHARGE VERBAL AND WRITTEN DISCHARGE INFORMATION GIVEN TO PT AND HIS DAUGHTER WITH VERBAL UNDERSTANDING. HOME HEALTH ARRANGED BY ANKIT WESTON CM DISCHARGE TO HOME AT 1345 VIA W\C WITH HOME O2 TANK ACCOMP BY DAUGHTER
--- NOTE | 2017-07-17 03:03 | DS ---
DATE OF DISCHARGE: 07/16/2017 HOSPITAL COURSE: An 86-year-old gentleman being discharged today on 07/16/2017. He initially came in the hospital with acute respiratory failure as well as pneumonia. The patient made very good progress during his hospitalization on the skilled unit here and acute pulmonary infiltrative process was noted. The patient will be discharged home on oral antibiotics, but he is doing much better overall. Blood pressure 110/60, respiratory rate 20, pulse 68, afebrile, oxygen saturation 2 liters. He has home health ____. The patient continued to be monitored continue on oral antibiotic therapy, aggressive pulmonary toilet as well as a tapering dose of prednisone. Diabetic diet, decreased activity, and followup in 7-10 days or sooner as needed per home health recommendation. IMPRESSION: Pneumonia of unspecified etiology, community acquired, acute exacerbation of chronic obstructive pulmonary disease, acute respiratory failure, type 2 diabetes. PLAN: As above, continue to monitor the patient as an outpatient with home health and other factors as indicated. JOÃO GILES MD DR: CARISSA/jaida JOB#: [id number] / [id number]
== END 2017-07-16 13:45 | disposition home health service (06) | DRG 193 ==
LOC: UNMERGE 10:24 → 1 SOUTH 10:24 → MERGE 10:24
PROVIDERS: ADMIT Family Medicine; ATTEND Family Medicine
DX: J18.9 Pneumonia, unspecified organism (principal); J96.00 Acute respiratory failure, unspecified whether with hypoxia or hypercapnia; J44.0 Chronic obstructive pulmonary disease with (acute) lower respiratory infection; J44.1 Chronic obstructive pulmonary disease with (acute) exacerbation; J45.901 Unspecified asthma with (acute) exacerbation; E11.9 Type 2 diabetes mellitus without complications; I10 Essential (primary) hypertension; E78.5 Hyperlipidemia, unspecified; M19.90 Unspecified osteoarthritis, unspecified site; J20.9 Acute bronchitis, unspecified; Z88.0 Allergy status to penicillin; Z88.2 Allergy status to sulfonamides; Z88.6 Allergy status to analgesic agent; Z79.899 Other long term (current) drug therapy; Z82.49 Family history of ischemic heart disease and other diseases of the circulatory system
CPT/HCPCS: 36415; 71046; 80053; 82947; 83880; 85025; 94640; G0238; J2920; J7512; J7620; 97110; 97116; 97530; 97535

== ENCOUNTER 2017-07-27 09:25 | Inpatient (IN) | payer MEDICARE, OTHER ==
[~2017-07-27] VITALS: Ht 172.7 cm; Wt 106.6 kg
[2017-07-27] VITALS (12 sets, daily range): BP systolic 85–161; BP diastolic 46–66
[~2017-07-27 09:25] MED LIST changes: +CLOP75TA PO; +DOCU100C28 PO; +DOXY100T PO; +GUAI200T3 PO; +ONDA4TAB12 PO; +POLY255P PO
--- NOTE | 2017-07-27 09:44 | PHYS DOC ---
Past History Past Medical History: A-Fib, CHF, COPD, Hypertension Smoking: Non-smoker Adult General Chief Complaint Chief Complaint: weakness HPI HPI 86-year-old male patient was diagnosed with roseola and pneumonia and new onset atrial fibrillation recently and was hospitalized and then discharged to rehabilitation. Patient was discharged from rehabilitation on July 16 but gradually became more weak. Patient states he had episodes of diarrhea 2 days ago that resolved spontaneously. Patient states this morning he felt pounding in his chest with shortness of breath without chest pain like his previous episodes of atrial fibrillation that resolved spontaneously. Review of Systems Review of Systems Constitutional: Denies fever or chills reports generalized weakness[] Eyes: Denies change in visual acuity, redness, or eye pain [] HENT: Denies nasal congestion or sore throat [] Respiratory: Reports shortness of breath Cardiovascular: No additional information not addressed in HPI [] GI: Denies abdominal pain, nausea, vomiting, bloody stools, reports diarrhea [] : Denies dysuria or hematuria [] Musculoskeletal: Denies back pain or joint pain [] Integument: Denies rash or skin lesions [] Neurologic: Denies headache, focal weakness or sensory changes [] Endocrine: Denies polyuria or polydipsia [] All other systems were reviewed and found to be within normal limits, except as documented in this note. Allergies Allergies Allergies Coded Allergies Type Severity Reaction Last Updated Verified Penicillins Allergy Intermediate 07/05/17 No Sulfa (Sulfonamide Antibiotics) Allergy Intermediate 07/05/17 No ibuprofen Allergy Intermediate 07/05/17 No Physical Exam Physical Exam Constitutional: Well developed, mild distress, non-toxic appearance, ill looking. [] HENT: Normocephalic, atraumatic, bilateral external ears normal, oropharynx moist, no oral exudates, nose normal. [] Eyes: PERRLA, EOMI, conjunctiva normal, no discharge. [] Neck: Normal range of motion, no tenderness, supple, no stridor. [] Cardiovascular:Heart rate regular rhythm, no murmur [] Lungs & Thorax: Decrease of bilateral breath sounds with marked rhonchi Abdomen: Bowel sounds normal, soft, no tenderness, no masses, no pulsatile masses. [] Skin: Warm, dry, no erythema, no rash. [] Back: No tenderness, no CVA tenderness. [] Extremities: No tenderness, no cyanosis, no clubbing, ROM intact, trace edema. [ ] Neurologic: Alert and oriented X 3, normal motor function, normal sensory function, no focal deficits noted. [] Psychologic: Affect normal, judgement normal, mood normal. [] EKG EKG [EKG interpreted by me. EKG at 0943] showed sinus rhythm with frequent PVC, right bundle branch block, poor R-wave practicing anterior leads Radiology/Procedures Radiology/Procedures [Chest x-ray is reported left lower lobe infiltration or atelectasis Course & Med Decision Making Course & Med Decision Making Pertinent Labs and Imaging studies reviewed. (See chart for details) Evaluation of patient in ER showed 86-year-old male patient presented to ER because of generalized weakness and shortness of breath and one episode of palpitation that resolved prior to arrival. Patient had sinus rhythm with PVCs. Patient did not have fever or hypotension or confusion. Patient had potassium of 2.3 and elevation of BUN/creatinine and troponin and lactic acid without leukocytosis. Patient treated with IV fluids and antibiotic and IV potassium. Dr. Hatch informed and plan to admit patient to ICU with diagnosis of sepsis , HCAP, hypokalemia and hyperglycemia without history of diabetes mellitus. [] Dragon Disclaimer Dragon Disclaimer This electronic medical record was generated, in whole or in part, using a voice recognition dictation system. Departure Departure: Impression: Primary Impression: Hypokalemia Additional Impressions: Sepsis HCAP (healthcare-associated pneumonia) Acute on chronic renal failure Elevated troponin Anemia Generalized weakness Hyperglycemia Disposition: ADMITTED INPATIENT (At 1109) Admitting Physician: Clement Hatch Condition: GUARDED Referrals: CLEMENT HATCH MD (PCP) Critical Care Time Critical care time was [80] minutes exclusive of procedures. Problem Qualifiers HEENA LUKE MD Jul 27, 2017 09:44
[2017-07-27 10:13] LABS: BASO % 0 % (0-3); EOS # 0.1 x10^3/uL (0.0-0.7); EOS % 2 % (0-3); HEMATOCRIT 42.4 % (39.0-53.0); HEMOGLOBIN 14.7 g/dL (13.0-17.5); LYMPH # 0.8 x10^3/uL (1.0-4.8); LYMPH % 12 % (24-48); MEAN CORPUSCULAR HEMOGLOBIN 32 pg (25-35); MEAN CORPUSCULAR HGB CONC 35 g/dL (31-37); MEAN CORPUSCULAR VOLUME 93 fL (79-100); MONO # 0.7 x10^3/uL (0.0-1.1); MONO % 10 % (0-9); NEUT # 5.1 x10^3uL (1.8-7.7); NEUT % 76 % (31-73); PLATELET COUNT 170 x10^3/uL (140-400); RED BLOOD COUNT 4.56 x10^6/uL (4.30-5.70); RED CELL DISTRIBUTION WIDTH 13.1 % (11.5-14.5); WHITE BLOOD COUNT 6.7 x10^3/uL (4.0-11.0)
--- NOTE | 2017-07-27 10:30 | RAD ---
Indication: Short of air for 2 to 3 days. Technique: Upright portable chest radiograph was obtained. No comparison is available. Findings: There is patchy opacity in the left lung base. The lungs otherwise are clear. Heart is not enlarged and there is no heart failure. Thoracic aorta demonstrates minimal atheromatous disease and is mildly tortuous. There are mild degenerative changes in the shoulders. Leads overlie the patient. Impression: Left basilar opacity, may represent atelectasis and/ or infiltrate.
[2017-07-27 10:31] LABS: BILIRUBIN,URINE NEG (NEG); CLARITY,URINE CLEAR; COLOR,URINE YELLOW; GLUCOSE,URINE 100 mg/dL (NEG); UROBILINOGEN,URINE 0.2 mg/dL (0.2 mg/dL)
[2017-07-27 10:32] LABS: BACTERIA,URINE 0 /HPF (0-FEW); HYALINE CASTS, URINE OCC /HPF; NITRITE,URINE NEG (NEG); RBC,URINE 0 /HPF (0-2); WBC,URINE 0 /HPF (0-4)
[2017-07-27 10:42] LABS: ALBUMIN/GLOBULIN RATIO 0.9 (1.0-1.7); CALCIUM 9.1 mg/dL (8.5-10.1); CREATININE 2.4 mg/dL (0.7-1.3); GFR 25.7; MAGNESIUM 1.8 mg/dL (1.8-2.4); TOTAL BILIRUBIN 0.7 mg/dL (0.2-1.0); TOTAL PROTEIN 6.5 g/dL (6.4-8.2)
[2017-07-27 10:43] LABS: POTASSIUM 2.3 mmol/L (3.5-5.1)
[2017-07-27] MEDS ORDERED: IV RINGERS SOLUTION,LACTATED 0 ML IV ONE (10:45)
[2017-07-27] MEDS ORDERED: POTASSIUM CHLORIDE 20MEQ 100 ML IV ONE (10:45)
[2017-07-27] MEDS ORDERED: VANCOMYCIN 1 GM in IV NORMAL SALINE 250ML 250 ML IV ONE (10:45)
[2017-07-27] MEDS ORDERED: VANCOMYCIN 2 GM in IV NORMAL SALINE 500ML 500 ML IV ONE (11:15)
[2017-07-27] MEDS ORDERED: IV NORMAL SALINE 500ML 500 ML ONE (11:18)
[2017-07-27] MEDS ORDERED: VANCOMYCIN 1 GM VIAL. ONE (11:19)
[2017-07-27] MEDS ORDERED: DILT180C64 PO (15:07)
[2017-07-27] MEDS ORDERED: NON FORMULARY ITEM (Ipratropium Bromide (Atrovent Hfa) 2 PUFF) IH PRN (16:15)
[2017-07-27] MEDS ORDERED: ACETAMINOPHEN 325 MG TABLET PO PRN (16:15)
[2017-07-27] MEDS ORDERED: ONDANSETRON ODT 4 MG TAB.RAPDIS PO PRN (16:15)
[2017-07-27] MEDS ORDERED: IPRATROPIUM BROMIDE 0.5 MG/2.5 ML NEBU. NEB PRN (16:30)
--- NOTE | 2017-07-27 17:53 | EKG ---
[address] [address] Test Date: 2017-07-27 Test Time: 09:43:56 Pat Name: SHILPI AQUINO Department: Room: ICU06 1 Gender: M Regional Ehs Manager: DARREL : [id number] Requested By: HEENA LUKE Order Number: [id number] Reading MD: Martin Rodarte MD Measurements Intervals [place] Rate: 67 P: -5 NC: 166 QRS: 22 QRSD: 136 T: -17 QT: 408 QTc: 434 Interpretive Statements SINUS RHYTHM PVC RBBB MILD LATERAL ST SEGMENT DEPRESSION. Electronically Signed On 07-31-2017 10:48:52 TRAILER RENTAL CLERK by Martin Rodarte MD
[2017-07-27] MEDS: IPRATRPIUM/ALBUTEROL 0.5/2.5MG 3 ML NEBU. NEB SCH (19:57)
[2017-07-27] MEDS: clonazePAM 0.5 MG TABLET PO SCH (20:41)
[2017-07-27] MEDS: APIXABAN 2.5 MG TABLET PO SCH (20:41)
[2017-07-27] MEDS: LACTOBACILLUS RHAMNOSUS GG 1 CAPSULE. PO SCH (20:41)
[2017-07-27] MEDS: ACETAMINOPHEN 325 MG TABLET PO SCH (20:42)
[2017-07-27] MEDS: ATORVASTATIN CALCIUM 20 MG TABLET PO SCH (20:42)
[2017-07-27] MEDS: DOCUSATE SODIUM 100 MG CAPSULE PO SCH (20:42)
[2017-07-27] MEDS: METOPROLOL TART IMMED RELEASE 50 MG TABLET PO SCH (20:44)
[2017-07-27] MEDS ORDERED: IPRATRPIUM/ALBUTEROL 0.5/2.5MG 3 ML NEBU. NEB SCH (21:00)
[2017-07-27] MEDS ORDERED: NON FORMULARY ITEM (Tiotropium Bromide (Spiriva) 1 CAP) IH SCH (21:00)
[2017-07-27 22:13] LABS: CALCIUM 8.9 mg/dL (8.5-10.1); CREATININE 2.3 mg/dL (0.7-1.3)
[2017-07-27 22:21] LABS: POTASSIUM 2.5 mmol/L (3.5-5.1)
[2017-07-27] MEDS ORDERED: POTASSIUM CHLORIDE 20 MEQ TABLET.ER. PO ONE (23:30)
[2017-07-28] VITALS (13 sets, daily range): BP systolic 92–115; BP diastolic 43–84
[2017-07-28] MEDS: IPRATRPIUM/ALBUTEROL 0.5/2.5MG 3 ML NEBU. NEB SCH ×4 (06:23→20:00)
[2017-07-28 07:05] LABS: BASO % 0 % (0-3); EOS # 0.1 x10^3/uL (0.0-0.7); EOS % 2 % (0-3); HEMATOCRIT 39.3 % (39.0-53.0); HEMOGLOBIN 13.7 g/dL (13.0-17.5); LYMPH # 1.3 x10^3/uL (1.0-4.8); LYMPH % 24 % (24-48); MEAN CORPUSCULAR HEMOGLOBIN 32 pg (25-35); MEAN CORPUSCULAR HGB CONC 35 g/dL (31-37); MEAN CORPUSCULAR VOLUME 93 fL (79-100); MONO # 0.8 x10^3/uL (0.0-1.1); MONO % 15 % (0-9); NEUT # 3.2 x10^3uL (1.8-7.7); NEUT % 59 % (31-73); PLATELET COUNT 162 x10^3/uL (140-400); RED BLOOD COUNT 4.23 x10^6/uL (4.30-5.70); RED CELL DISTRIBUTION WIDTH 13.1 % (11.5-14.5); WHITE BLOOD COUNT 5.5 x10^3/uL (4.0-11.0)
[2017-07-28 07:06] LABS: ALBUMIN 2.7 g/dL (3.4-5.0); ALBUMIN/GLOBULIN RATIO 0.8 (1.0-1.7); CREATININE 2.3 mg/dL (0.7-1.3); TOTAL BILIRUBIN 0.8 mg/dL (0.2-1.0); TOTAL PROTEIN 6.1 g/dL (6.4-8.2)
[2017-07-28 07:10] LABS: POTASSIUM 2.5 mmol/L (3.5-5.1)
[2017-07-28] MEDS: POLYETHYLENE GLYCOL 3350 17 GM PACKET. PO SCH (07:55)
[2017-07-28] MEDS: FLUTICASONE 50MCG/NASAL SPRAY 16GM BOTTLE. NS SCH (07:55)
[2017-07-28] MEDS: POTASSIUM CHLORIDE 20 MEQ TABLET.ER. PO SCH ×4 (07:56→12:49)
[2017-07-28] MEDS: APIXABAN 2.5 MG TABLET PO SCH ×2 (07:56→19:53)
[2017-07-28] MEDS: CLOPIDOGREL BISULFATE 75 MG TABLET PO SCH (07:56)
[2017-07-28] MEDS: clonazePAM 0.5 MG TABLET PO SCH ×2 (07:56→19:54)
[2017-07-28] MEDS: DOCUSATE SODIUM 100 MG CAPSULE PO SCH ×2 (07:56→19:53)
[2017-07-28] MEDS: predniSONE 10 MG TABLET PO SCH (07:56)
[2017-07-28] MEDS: METOPROLOL TART IMMED RELEASE 50 MG TABLET PO SCH ×2 (07:57→21:00)
[2017-07-28] MEDS: LACTOBACILLUS RHAMNOSUS GG 1 CAPSULE. PO SCH ×2 (07:57→19:53)
[2017-07-28] MEDS ORDERED: POTASSIUM CHLORIDE 20 MEQ TABLET.ER. PO SCH (08:00)
[2017-07-28] MEDS ORDERED: FUROSEMIDE 80 MG TABLET PO SCH (09:00)
--- NOTE | 2017-07-28 10:34 | PDOC2 ---
RUFUS ARGUETA EVIDENCE TECHNICIAN 07/28/17 1034: CONSULT Date of Admission DATE: 07/28/17 TIME: 10:25 Reason for Consult: elevated troponin Problem List Problems Medical Problems: (1) Hypokalemia Status: Acute History of Present Illness Mr Peres is an 86 year old male who was recently seen for respiratory insufficiency, COPD exacerbation and atrial fibrillation. He was discharged to rehab and from there discharged home on 07/16/2017. He apparently became gradually more weak and short of breath. He presented to the Ed with complaints of palpitations, like a pounding in his chest and shortness of breath. He denies chest pain. He was noted to have a mild troponin elevation so consult was called. He is currently pain free, denies significant dyspnea or edema, denies palpitations, denies lightheadedness or syncope. Past Medical History Echo 07/01/17 Grossly normal wall motion, not well visualized due to suboptimal images. Septal motion suggestive of conduction defect. Grossly normal systolic function. EF 55% Technically very difficult study. Limited images. Valves not well visualized. hypertension, hyperlipidemia, CHF, CVA, COPD, pneumonia, anxiety, hearing loss, PAD with peripheral stent, paroxysmal atrial fibrillation Past Surgical History back surgery Family History non contributory Social History non smoker, no significant ETOH, no illicit drugs Current Medications Current Medications Potassium Chloride 100 ml @ 50 mls/hr 1X ONCE IV Last administered on at 11:35; Start 07/27/17 at 10:45; Stop 07/27/17 at 12:45; Status DC Levofloxacin/ Dextrose 150 ml @ 150 mls/hr 1X ONCE IV Last administered on at 11:36; Start 07/27/17 at 11:00; Stop 07/27/17 at 11:59; Status DC Vancomycin HCl 1 gm/Sodium Chloride 250 ml @ 250 mls/hr 1X ONCE IV ; Start at 10:45; Stop 07/27/17 at 11:44; Status UNV Lactated Ringer's 0 ml @ 1,000 mls/hr 1X ONCE IV Last administered on at 11:35; Start 07/27/17 at 10:45; Stop 07/27/17 at 10:54; Status DC Vancomycin HCl 2 gm/Sodium Chloride 500 ml @ 250 mls/hr 1X ONCE IV Last administered on 07/27/17at 11:15; Start 07/27/17 at 11:15; Stop 07/27/17 at 13:14 ; Status DC Sodium Chloride 500 ml @ As Directed STK-MED ONCE .ROUTE ; Start 07/27/17 at 11 :18; Stop 07/27/17 at 11:19; Status DC Vancomycin HCl 1 gm STK-MED ONCE .ROUTE ; Start 07/27/17 at 11:19; Stop at 11:20; Status DC Acetaminophen (Tylenol) 325 mg QHS PO Last administered on 07/27/17at 20:42; Start 07/27/17 at 21:00 Acetaminophen (Tylenol) 650 mg PRN Q6HRS PRN PO PAIN / TEMP; Start 07/27/17 at 16:15 Apixaban (Eliquis) 2.5 mg BID PO Last administered on 07/28/17at 07:56; Start at 21:00 Atorvastatin Calcium (Lipitor) 20 mg QHS PO Last administered on 07/27/17at 20: 42; Start 07/27/17 at 21:00 Clonazepam (KlonoPIN) 0.5 mg BID PO Last administered on 07/28/17at 07:56; Start 07/27/17 at 21:00 Clopidogrel Bisulfate (Plavix) 75 mg DAILY PO Last administered on 07/28/17at 07 :56; Start 07/28/17 at 09:00 Diltiazem HCl (Cardizem 24hr Cd) 180 mg DAILY PO Last administered on at 07:56; Start 07/28/17 at 09:00 Docusate Sodium (Colace) 100 mg BID PO Last administered on 07/28/17at 07:56; Start 07/27/17 at 21:00 Furosemide (Lasix) 80 mg DAILY PO Last administered on 07/28/17at 07:57; Start 07/28/17 at 09:00 Guaifenesin (Guaifenesin) 200 mg PRN BID PRN PO COUGH Last administered on 07/28at 07:56; Start 07/27/17 at 16:15 Albuterol/ Ipratropium (Duoneb) 3 ml TID NEB ; Start 07/27/17 at 21:00; Stop at 21:00; Status DC Lactobacillus Rhamnosus (Culturelle) 1 cap BID PO Last administered on at 07:57; Start 07/27/17 at 21:00 Metoprolol Tartrate (Lopressor) 50 mg BID PO Last administered on 07/28/17at 07: 57; Start 07/27/17 at 21:00 Ondansetron HCl (Zofran Odt) 4 mg PRN Q8HRS PRN PO NAUSEA; Start 07/27/17 at 16 :15 Polyethylene Glycol (miraLAX) 17 gm DAILY PO Last administered on 07/28/17at 07: 55; Start 07/28/17 at 09:00 Prednisone (Prednisone) 10 mg DAILY PO Last administered on 07/28/17at 07:56; Start 07/28/17 at 09:00 Fluticasone Propionate (Flonase) 2 spray DAILY NS Last administered on at 07:55; Start 07/28/17 at 09:00 Non-Formulary Medication 2 puff QID PRN IH SHORTNESS OF BREATH; Start 07/27/17 at 16:15; Status UNV Non-Formulary Medication 1 cap QHS IH ; Start 07/27/17 at 21:00; Status UNV Ipratropium Bayard (Atrovent) 0.5 mg PRN QID PRN NEB SHORTNESS OF BREATH; Start 07/27/17 at 16:30 Albuterol/ Ipratropium (Duoneb) 3 ml RTQID NEB Last administered on 07/28/17at 06:23; Start 07/27/17 at 20:00 Potassium Chloride (Klor-Con) 20 meq TIDWMEALS PO ; Start 07/28/17 at 08:00; Stop 07/28/17 at 09:05; Status DC Potassium Chloride (Klor-Con) 20 meq 1X ONCE PO Last administered on at 23:37; Start 07/27/17 at 23:30; Stop 07/27/17 at 23:31; Status DC Potassium Chloride (Klor-Con) 40 meq Q2H PO Last administered on 07/28/17at 09: 33; Start 07/28/17 at 08:00; Stop 07/28/17 at 10:01; Status DC Potassium Chloride (Klor-Con) 40 meq TIDWMEALS PO ; Start 07/28/17 at 12:00 Active Scripts Active Atorvastatin Calcium 20 Mg Tablet 20 Mg PO QHS Ondansetron Odt (Ondansetron) 4 Mg Tab.rapdis 1 Tab PO PRN Q8HRS PRN Tylenol (Acetaminophen) 325 Mg Tablet 650 Mg PO PRN PRN Prednisone 10 Mg Tablet 10 Mg PO DAILY 30 Days Guaifenesin 200 Mg Tablet 200 Mg PO BID PRN 30 Days Furosemide 40 Mg Tablet 80 Mg PO DAILY 30 Days Culturelle (Lactobacillus Rhamnosus Gg) 1 Each Cap.sprink 1 Cap PO BID 60 Days Reported Cartia Xt (Diltiazem Hcl) 180 Mg Cap.er.24h 180 Mg PO DAILY Eliquis (Apixaban) 2.5 Mg Tablet 2.5 Mg PO BID Flonase Allergy Relief (Fluticasone Propionate) 9.9 Ml Tofte.susp 2 Sprays NS DAILY Spiriva (Tiotropium Bayard) 18 Mcg Cap.w.dev 1 Cap IH QHS Tylenol (Acetaminophen) 325 Mg Tablet 1 Tab PO QHS Miralax (Polyethylene Glycol 3350) 17 Gm Powd.pack 1 Packet PO DAILY Duoneb 0.5-3(2.5) Mg/3 Ml (Albuterol/Ipratropium) 3 Ml Ampul.neb 3 Ml NEB TID Colace (Docusate Sodium) 100 Mg Capsule 1 Cap PO BID Plavix (Clopidogrel Bisulfate) 75 Mg Tablet 1 Tab PO DAILY Metoprolol Tartrate 50 Mg Tablet 1 Tab PO BID Atrovent Hfa (Ipratropium Bayard) 12.9 Gm Hfa.aer.ad 2 Puff IH QID PRN Clonazepam 0.5 Mg Tablet 1 Tab PO BID Allergies: Coded Allergies: Penicillins (Unverified Allergy, Intermediate, 07/05/17) Sulfa (Sulfonamide Antibiotics) (Unverified Allergy, Intermediate, 07/05/17) ibuprofen (Unverified Allergy, Intermediate, 07/05/17) Review of System as per HPI General: Alert, Oriented X3, Cooperative, No acute distress HEENT: Atraumatic Lungs: Other (decreased bases bilaterally) Heart: Regular rate, Normal S1, Normal S2, Other (no gallops, clicks or rubs) Abdomen: Normal bowel sounds, Soft Extremities: No cyanosis, No edema, Normal pulses Neuro: Normal speech, Strength at 5/5 X4 ext Psych/Mental Status: Mental status NL, Mood NL VITALS Vital Signs Date Time Temp Pulse Resp B/P (MAP) Pulse Ox O2 Delivery O2 Flow Rate FiO2 07/28/17 09:30 61 18 109/43 (65) 96 Nasal Cannula 2.0 07/28/17 04:59 97.6 Labs Laboratory Tests Test 07/27/17 09:45 07/27/17 10:00 07/27/17 14:16 07/27/17 15:55 White Blood Count 6.7 x10^3/uL (4.0-11.0) Red Blood Count 4.56 x10^6/uL (4.30-5.70) Hemoglobin 14.7 g/dL (13.0-17.5) Hematocrit 42.4 % (39.0-53.0) Mean Corpuscular Volume 93 fL (79-100) Mean Corpuscular Hemoglobin 32 pg (25-35) Mean Corpuscular Hemoglobin Concent 35 g/dL (31-37) Red Cell Distribution Width 13.1 % (11.5-14.5) Platelet Count 170 x10^3/uL (140-400) Neutrophils (%) (Auto) 76 % (31-73) Lymphocytes (%) (Auto) 12 % (24-48) Monocytes (%) (Auto) 10 % (0-9) Eosinophils (%) (Auto) 2 % (0-3) Basophils (%) (Auto) 0 % (0-3) Neutrophils # (Auto) 5.1 x10^3uL (1.8-7.7) Lymphocytes # (Auto) 0.8 x10^3/uL (1.0-4.8) Monocytes # (Auto) 0.7 x10^3/uL (0.0-1.1) Eosinophils # (Auto) 0.1 x10^3/uL (0.0-0.7) Basophils # (Auto) 0.0 x10^3/uL (0.0-0.2) Prothrombin Time 12.0 SEC (9.4-11.4) Prothromb Time International Ratio 1.2 (0.9-1.1) Activated Partial Thromboplast Time 24 SEC (23-33) D-Dimer (Vandana) 0.32 mg/L (0.00-0.50) Sodium Level 141 mmol/L (136-145) Potassium Level 2.3 mmol/L (3.5-5.1) Chloride Level 92 mmol/L (98-107) Carbon Dioxide Level 45 mmol/L (21-32) Anion Gap 4 (6-14) Blood Urea Nitrogen 51 mg/dL (8-26) Creatinine 2.4 mg/dL (0.7-1.3) Estimated GFR (Cockcroft-Gault) 25.7 BUN/Creatinine Ratio 21 (6-20) Glucose Level 290 mg/dL (70-99) Lactic Acid Level 2.6 mmol/L (0.4-2.0) 1.8 mmol/L (0.4-2.0) Calcium Level 9.1 mg/dL (8.5-10.1) Magnesium Level 1.8 mg/dL (1.8-2.4) Total Bilirubin 0.7 mg/dL (0.2-1.0) Aspartate Amino Transf (AST/SGOT) 17 U/L (15-37) Alanine Aminotransferase (ALT/SGPT) 27 U/L (16-63) Alkaline Phosphatase 84 U/L (46-116) Creatine Kinase 35 U/L (39-308) Creatine Kinase MB (Mass) 1.4 ng/mL (0.0-3.6) Creatine Kinase MB Relative Index 4.0 % (0-4) Troponin I Quantitative 0.075 ng/mL (0-0.055) 0.106 ng/mL (0-0.055) NF-Orj-L-Type Natriuretic Peptide 819 pg/mL (0-449) Total Protein 6.5 g/dL (6.4-8.2) Albumin 3.0 g/dL (3.4-5.0) Albumin/Globulin Ratio 0.9 (1.0-1.7) Lipase 99 U/L (73-393) Urine Collection Type Unknown Urine Color Yellow Urine Clarity Clear Urine pH 6.5 Urine Specific [place] 1.015 Urine Protein Neg (NEG-TRACE) Urine Glucose (UA) 100 mg/dL (NEG) Urine Ketones (Stick) Neg mg/dL (NEG) Urine Blood Neg (NEG) Urine Nitrite Neg (NEG) Urine Bilirubin Neg (NEG) Urine Urobilinogen Dipstick 0.2 mg/dL (0.2 mg/dL) Urine Leukocyte Esterase Neg (NEG) Urine RBC 0 /HPF (0-2) Urine WBC 0 /HPF (0-4) Urine Squamous Epithelial Cells None /LPF Urine Bacteria 0 /HPF (0-FEW) Urine Hyaline Casts Occ /HPF Urine Mucus Slight /LPF Test 07/27/17 21:55 07/28/17 05:59 Sodium Level 140 mmol/L (136-145) 143 mmol/L (136-145) Potassium Level 2.5 mmol/L (3.5-5.1) 2.5 mmol/L (3.5-5.1) Chloride Level 93 mmol/L (98-107) 94 mmol/L (98-107) Carbon Dioxide Level 51 mmol/L (21-32) 44 mmol/L (21-32) Anion Gap 0 (6-14) 5 (6-14) Blood Urea Nitrogen 47 mg/dL (8-26) 42 mg/dL (8-26) Creatinine 2.3 mg/dL (0.7-1.3) 2.3 mg/dL (0.7-1.3) Estimated GFR (Cockcroft-Gault) 27.0 27.0 Glucose Level 187 mg/dL (70-99) 125 mg/dL (70-99) Calcium Level 8.9 mg/dL (8.5-10.1) 9.0 mg/dL (8.5-10.1) Troponin I Quantitative 0.097 ng/mL (0-0.055) White Blood Count 5.5 x10^3/uL (4.0-11.0) Red Blood Count 4.23 x10^6/uL (4.30-5.70) Hemoglobin 13.7 g/dL (13.0-17.5) Hematocrit 39.3 % (39.0-53.0) Mean Corpuscular Volume 93 fL (79-100) Mean Corpuscular Hemoglobin 32 pg (25-35) Mean Corpuscular Hemoglobin Concent 35 g/dL (31-37) Red Cell Distribution Width 13.1 % (11.5-14.5) Platelet Count 162 x10^3/uL (140-400) Neutrophils (%) (Auto) 59 % (31-73) Lymphocytes (%) (Auto) 24 % (24-48) Monocytes (%) (Auto) 15 % (0-9) Eosinophils (%) (Auto) 2 % (0-3) Basophils (%) (Auto) 0 % (0-3) Neutrophils # (Auto) 3.2 x10^3uL (1.8-7.7) Lymphocytes # (Auto) 1.3 x10^3/uL (1.0-4.8) Monocytes # (Auto) 0.8 x10^3/uL (0.0-1.1) Eosinophils # (Auto) 0.1 x10^3/uL (0.0-0.7) Basophils # (Auto) 0.0 x10^3/uL (0.0-0.2) BUN/Creatinine Ratio 18 (6-20) Total Bilirubin 0.8 mg/dL (0.2-1.0) Aspartate Amino Transf (AST/SGOT) 17 U/L (15-37) Alanine Aminotransferase (ALT/SGPT) 23 U/L (16-63) Alkaline Phosphatase 76 U/L (46-116) Total Protein 6.1 g/dL (6.4-8.2) Albumin 2.7 g/dL (3.4-5.0) Albumin/Globulin Ratio 0.8 (1.0-1.7) Images CXR - Impression: Left basilar opacity, may represent atelectasis and/ or infiltrate. EKG - sinus rhythm, Right bundle branch block, no acute ischemic changes. Assessment/Plan 1. elevated troponin in the setting of COPD exacerbation and PNA as well as ARF - Continue supportive care. Echo 2 weeks ago revealed normal LV function. Continue medical mgmt and RF reduction. Plan for outpatient MPI when respiratory issues stabilize. 2. paroxysmal atrial fibrillation - currently sinus rhythm. On Apixaban for stroke prophylaxis. 3. Respiratory insufficiency secondary to COPD exacerbation and HCAP - mgmt per PCP 4. ARF- hold diuretics 5. hypokalemia - replacement protocol Problems: CINDA OCONNELL MD 07/28/17 8640: CONSULT Allergies: Coded Allergies: Penicillins (Unverified Allergy, Intermediate, 07/05/17) Sulfa (Sulfonamide Antibiotics) (Unverified Allergy, Intermediate, 07/05/17) ibuprofen (Unverified Allergy, Intermediate, 07/05/17) Assessment/Plan Patient seen and examined. Agree with WATER SOFTENER INSTALLER's assessment and plan. Slight troponin elevation probably demand ischemia Recent 2-D echo showed normal LV function Paroxysmal atrial fibrillation maintaining sinus rhythm Continue Eliquis for stroke prophylaxis We will consider outpatient ischemic evaluation Thank you for your consultation Problems: RUFUS ARGUETA APRN Jul 28, 2017 10:34 CINDA OCONNELL MD Jul 28, 2017 17:09
[2017-07-28 15:08] LABS: CREATININE 2.4 mg/dL (0.7-1.3); GFR 25.7; POTASSIUM 3.4 mmol/L (3.5-5.1)
[2017-07-28] MEDS ORDERED: MAGNESIUM SULFATE 1GM 100 ML IV ONE (17:45)
[2017-07-28] MEDS ORDERED: DEXTROSE 50% 25 GM / 50ML DISP.SYRIN. IV PRN (17:45)
[2017-07-28] MEDS: ATORVASTATIN CALCIUM 20 MG TABLET PO SCH (19:54)
[2017-07-28] MEDS: ACETAMINOPHEN 325 MG TABLET PO SCH (19:55)
[2017-07-28] MEDS: INSULIN ASPART 300 UNITS/3 ML INSULN.PEN SQ SCH (20:49)
--- NOTE | 2017-07-28 22:03 | HP ---
ADMIT DATE: 07/27/2017 HISTORY OF PRESENT ILLNESS: An 86-year-old white male came in through the Emergency Room feeling very weak and tired. The patient recently discharged for atrial fibrillation, today came in because of increased weakness. He felt some pounding in his chest with shortness of breath without chest pain. It was noted his potassium was 2.3, and as a result of this, the patient was admitted to the hospital for further evaluation for his weakness and hypokalemia. PAST MEDICAL HISTORY: Hard of hearing, had a history of stroke, chronic atrial fibrillation, congestive heart failure, hypercholesterolemia, hypertension. Respiratory disorders are COPD, pneumonia. Gastrointestinal disorders, GERD, urinary retention. Psychiatric problems, anxiety. His immunizations for tetanus, influenza vaccine and pneumococcal vaccine are all up-to-date. FAMILY HISTORY: Both mom and dad of old age. MEDICATIONS: Insulin, potassium chloride, prednisone 10 mg daily, MiraLax daily, diltiazem 180 daily, Plavix 75 daily, Lopressor 50 mg b.i.d., Lipitor 20 mg daily, Eliquis 2.5 mg b.i.d., Tylenol p.r.n., DuoNeb treatments 4 times a day, Zofran ODT p.r.n., guaifenesin. ALLERGIES: PENICILLIN, SULFUR, AND IBUPROFEN. SOCIAL HISTORY: The patient denies smoking, alcohol or drug use. REVIEW OF SYSTEMS: The patient denies any headaches, visual changes, blurred vision, double vision, just generalized weakness. Denies shortness of breath, chest pain. Denies any melena, hematochezia, hematemesis. Neurologic, the patient is alert and oriented x 3. No problems with or musculoskeletal system outside of generalized arthritis for a gentleman his age. PHYSICAL EXAMINATION: GENERAL: He is a pleasant white male in moderate amount of distress. VITAL SIGNS: Blood pressure 110/84, respiratory rate 20, pulse 74. HEENT: The patient's head was atraumatic, normocephalic. Eyes: PERRLA without jaundice. The mouth and throat were normal. NECK: Supple, without JVD or thyromegaly. LUNGS: Diminished throughout, poor movement of air. CARDIOVASCULAR: Irregularly irregular rhythm. ABDOMEN: Soft, protuberant, nontender. No rebound or guarding. Positive bowel sounds. No hepatosplenomegaly was noted. EXTREMITIES: No clubbing, cyanosis, or edema. NEUROLOGIC: The patient was alert and oriented x 3. Speech fluent, spontaneous, appropriate. Cranial nerves 2-12 are grossly intact. The patient's labs, as noted, the big major thing was his potassium, was down to 2.3, BUN and creatinine 51 and 2.4, lactic acid elevated at 2.6. Otherwise, the patient's troponin was slightly elevated and will be monitored carefully. Have Cardiology consulted on that. The patient's UA was unremarkable. Chest x-ray shows possibility of atelectasis. We will continue to be monitored carefully, make further evaluation on him and treat him appropriately. JOÃO GILES MD DR: CARISSA/jaida JOB#: [id number] / [id number]
[2017-07-29] VITALS (7 sets, daily range): BP systolic 112–136; BP diastolic 51–70
[2017-07-29] MEDS: IPRATRPIUM/ALBUTEROL 0.5/2.5MG 3 ML NEBU. NEB SCH ×4 (06:01→22:05)
[2017-07-29 06:35] LABS: BASO % 0 % (0-3); EOS # 0.1 x10^3/uL (0.0-0.7); EOS % 2 % (0-3); HEMATOCRIT 39.1 % (39.0-53.0); HEMOGLOBIN 13.3 g/dL (13.0-17.5); LYMPH # 1.2 x10^3/uL (1.0-4.8); LYMPH % 22 % (24-48); MEAN CORPUSCULAR HEMOGLOBIN 32 pg (25-35); MEAN CORPUSCULAR HGB CONC 34 g/dL (31-37); MEAN CORPUSCULAR VOLUME 94 fL (79-100); MONO # 0.8 x10^3/uL (0.0-1.1); MONO % 15 % (0-9); NEUT # 3.3 x10^3uL (1.8-7.7); NEUT % 61 % (31-73); PLATELET COUNT 169 x10^3/uL (140-400); RED BLOOD COUNT 4.17 x10^6/uL (4.30-5.70); RED CELL DISTRIBUTION WIDTH 12.9 % (11.5-14.5); WHITE BLOOD COUNT 5.4 x10^3/uL (4.0-11.0)
[2017-07-29 07:06] LABS: ALBUMIN 2.7 g/dL (3.4-5.0); ALBUMIN/GLOBULIN RATIO 0.8 (1.0-1.7); CALCIUM 9.1 mg/dL (8.5-10.1); CREATININE 2.1 mg/dL (0.7-1.3); MAGNESIUM 2.2 mg/dL (1.8-2.4); POTASSIUM 3.3 mmol/L (3.5-5.1); TOTAL BILIRUBIN 0.5 mg/dL (0.2-1.0); TOTAL PROTEIN 5.9 g/dL (6.4-8.2)
[2017-07-29] MEDS ORDERED: MAGNESIUM HYDROXIDE 2,400 MG/30 ML ORAL.SUSP. PO PRN (07:30)
[2017-07-29] MEDS: INSULIN ASPART 300 UNITS/3 ML INSULN.PEN SQ SCH ×4 (07:30→21:45)
[2017-07-29] MEDS: clonazePAM 0.5 MG TABLET PO SCH ×2 (07:31→21:51)
[2017-07-29] MEDS: METOPROLOL TART IMMED RELEASE 50 MG TABLET PO SCH ×2 (07:31→21:52)
[2017-07-29] MEDS: CLOPIDOGREL BISULFATE 75 MG TABLET PO SCH (07:31)
[2017-07-29] MEDS: APIXABAN 2.5 MG TABLET PO SCH ×2 (07:32→21:51)
[2017-07-29] MEDS: DOCUSATE SODIUM 100 MG CAPSULE PO SCH ×2 (07:32→21:51)
[2017-07-29] MEDS: predniSONE 10 MG TABLET PO SCH (07:32)
[2017-07-29] MEDS: LACTOBACILLUS RHAMNOSUS GG 1 CAPSULE. PO SCH ×2 (07:32→21:51)
[2017-07-29] MEDS: POTASSIUM CHLORIDE 20 MEQ TABLET.ER. PO SCH ×3 (07:32→17:14)
[2017-07-29] MEDS: FLUTICASONE 50MCG/NASAL SPRAY 16GM BOTTLE. NS SCH (07:34)
--- NOTE | 2017-07-29 08:48 | PDOC ---
PROGRESS NOTES Diagnosis Problem Problems Medical Problems: (1) Hypokalemia Status: Acute Assessment Problems Medical Problems: (1) Hypokalemia Status: Acute 1. elevated troponin in the setting of COPD exacerbation and PNA as well as ARF - Continue supportive care. Echo 2 weeks ago revealed normal LV function. Continue medical mgmt and RF reduction. Plan for outpatient MPI when respiratory issues stabilize. 2. paroxysmal atrial fibrillation - maintaining sinus rhythm. Continue Apixaban for stroke prophylaxis. 3. Respiratory insufficiency secondary to COPD exacerbation and HCAP - improving, mgmt per PCP 4. ARF- improving. Continue to hold diuretics. Baseline Cr appears to be between 1.6 -1.9. 5. hypokalemia - improving, continue replacement protocol Problems: Subjective "feeling better", continued cough, no dyspnea, no chest pain, no palpitations. Objective Vital Signs Date Time Temp Pulse Resp B/P (MAP) Pulse Ox O2 Delivery O2 Flow Rate FiO2 07/29/17 08:00 Nasal Cannula 2.0 07/29/17 07:32 97.5 07/29/17 07:31 80 07/29/17 06:01 96 07/29/17 04:58 18 121/55 (77) Intake and Output 07/29/17 06:59 Intake Total 1640 ml Output Total 1800 ml Balance -160 ml Intake Oral 1540 ml IV Total 100 ml Output Urine Total 1800 ml # Voids 3 Abdomen: Normal bowel sounds, Soft, No tenderness Heart: Regular rate, Normal S1, Normal S2 Extremities: No cyanosis, Normal pulses, Other (trace to 1+ edema bilaterally to lower extremitiets) Lungs: Other (decreased with occasional rhonchi) Neuro: Normal speech, Strength at 5/5 X4 ext Psych/Mental Status: Mental status NL, Mood NL Review of Relevant I have reviewed the following items bhupinder (where applicable) has been applied. Labs Laboratory Tests Test 07/27/17 09:45 07/27/17 10:00 07/27/17 14:16 07/27/17 15:30 White Blood Count 6.7 x10^3/uL (4.0-11.0) Red Blood Count 4.56 x10^6/uL (4.30-5.70) Hemoglobin 14.7 g/dL (13.0-17.5) Hematocrit 42.4 % (39.0-53.0) Mean Corpuscular Volume 93 fL (79-100) Mean Corpuscular Hemoglobin 32 pg (25-35) Mean Corpuscular Hemoglobin Concent 35 g/dL (31-37) Red Cell Distribution Width 13.1 % (11.5-14.5) Platelet Count 170 x10^3/uL (140-400) Neutrophils (%) (Auto) 76 % (31-73) Lymphocytes (%) (Auto) 12 % (24-48) Monocytes (%) (Auto) 10 % (0-9) Eosinophils (%) (Auto) 2 % (0-3) Basophils (%) (Auto) 0 % (0-3) Neutrophils # (Auto) 5.1 x10^3uL (1.8-7.7) Lymphocytes # (Auto) 0.8 x10^3/uL (1.0-4.8) Monocytes # (Auto) 0.7 x10^3/uL (0.0-1.1) Eosinophils # (Auto) 0.1 x10^3/uL (0.0-0.7) Basophils # (Auto) 0.0 x10^3/uL (0.0-0.2) Prothrombin Time 12.0 SEC (9.4-11.4) Prothromb Time International Ratio 1.2 (0.9-1.1) Activated Partial Thromboplast Time 24 SEC (23-33) D-Dimer (Vandana) 0.32 mg/L (0.00-0.50) Sodium Level 141 mmol/L (136-145) Potassium Level 2.3 mmol/L (3.5-5.1) Chloride Level 92 mmol/L (98-107) Carbon Dioxide Level 45 mmol/L (21-32) Anion Gap 4 (6-14) Blood Urea Nitrogen 51 mg/dL (8-26) Creatinine 2.4 mg/dL (0.7-1.3) Estimated GFR (Cockcroft-Gault) 25.7 BUN/Creatinine Ratio 21 (6-20) Glucose Level 290 mg/dL (70-99) Lactic Acid Level 2.6 mmol/L (0.4-2.0) 1.8 mmol/L (0.4-2.0) Calcium Level 9.1 mg/dL (8.5-10.1) Magnesium Level 1.8 mg/dL (1.8-2.4) Total Bilirubin 0.7 mg/dL (0.2-1.0) Aspartate Amino Transf (AST/SGOT) 17 U/L (15-37) Alanine Aminotransferase (ALT/SGPT) 27 U/L (16-63) Alkaline Phosphatase 84 U/L (46-116) Creatine Kinase 35 U/L (39-308) Creatine Kinase MB (Mass) 1.4 ng/mL (0.0-3.6) Creatine Kinase MB Relative Index 4.0 % (0-4) Troponin I Quantitative 0.075 ng/mL (0-0.055) VB-Lhc-X-Type Natriuretic Peptide 819 pg/mL (0-449) Total Protein 6.5 g/dL (6.4-8.2) Albumin 3.0 g/dL (3.4-5.0) Albumin/Globulin Ratio 0.9 (1.0-1.7) Lipase 99 U/L (73-393) Urine Collection Type Unknown Urine Color Yellow Urine Clarity Clear Urine pH 6.5 Urine Specific [place] 1.015 Urine Protein Neg (NEG-TRACE) Urine Glucose (UA) 100 mg/dL (NEG) Urine Ketones (Stick) Neg mg/dL (NEG) Urine Blood Neg (NEG) Urine Nitrite Neg (NEG) Urine Bilirubin Neg (NEG) Urine Urobilinogen Dipstick 0.2 mg/dL (0.2 mg/dL) Urine Leukocyte Esterase Neg (NEG) Urine RBC 0 /HPF (0-2) Urine WBC 0 /HPF (0-4) Urine Squamous Epithelial Cells None /LPF Urine Bacteria 0 /HPF (0-FEW) Urine Hyaline Casts Occ /HPF Urine Mucus Slight /LPF Nasal Screen MRSA (PCR) Negative (Negative) Test 07/27/17 15:55 07/27/17 21:55 07/28/17 05:59 07/28/17 14:47 Troponin I Quantitative 0.106 ng/mL (0-0.055) 0.097 ng/mL (0-0.055) Sodium Level 140 mmol/L (136-145) 143 mmol/L (136-145) 141 mmol/L (136-145) Potassium Level 2.5 mmol/L (3.5-5.1) 2.5 mmol/L (3.5-5.1) 3.4 mmol/L (3.5-5.1) Chloride Level 93 mmol/L (98-107) 94 mmol/L (98-107) 95 mmol/L (98-107) Carbon Dioxide Level 51 mmol/L (21-32) 44 mmol/L (21-32) 43 mmol/L (21-32) Anion Gap 0 (6-14) 5 (6-14) 3 (6-14) Blood Urea Nitrogen 47 mg/dL (8-26) 42 mg/dL (8-26) 44 mg/dL (8-26) Creatinine 2.3 mg/dL (0.7-1.3) 2.3 mg/dL (0.7-1.3) 2.4 mg/dL (0.7-1.3) Estimated GFR (Cockcroft-Gault) 27.0 27.0 25.7 Glucose Level 187 mg/dL (70-99) 125 mg/dL (70-99) 255 mg/dL (70-99) Calcium Level 8.9 mg/dL (8.5-10.1) 9.0 mg/dL (8.5-10.1) 9.0 mg/dL (8.5-10.1) White Blood Count 5.5 x10^3/uL (4.0-11.0) Red Blood Count 4.23 x10^6/uL (4.30-5.70) Hemoglobin 13.7 g/dL (13.0-17.5) Hematocrit 39.3 % (39.0-53.0) Mean Corpuscular Volume 93 fL (79-100) Mean Corpuscular Hemoglobin 32 pg (25-35) Mean Corpuscular Hemoglobin Concent 35 g/dL (31-37) Red Cell Distribution Width 13.1 % (11.5-14.5) Platelet Count 162 x10^3/uL (140-400) Neutrophils (%) (Auto) 59 % (31-73) Lymphocytes (%) (Auto) 24 % (24-48) Monocytes (%) (Auto) 15 % (0-9) Eosinophils (%) (Auto) 2 % (0-3) Basophils (%) (Auto) 0 % (0-3) Neutrophils # (Auto) 3.2 x10^3uL (1.8-7.7) Lymphocytes # (Auto) 1.3 x10^3/uL (1.0-4.8) Monocytes # (Auto) 0.8 x10^3/uL (0.0-1.1) Eosinophils # (Auto) 0.1 x10^3/uL (0.0-0.7) Basophils # (Auto) 0.0 x10^3/uL (0.0-0.2) BUN/Creatinine Ratio 18 (6-20) Total Bilirubin 0.8 mg/dL (0.2-1.0) Aspartate Amino Transf (AST/SGOT) 17 U/L (15-37) Alanine Aminotransferase (ALT/SGPT) 23 U/L (16-63) Alkaline Phosphatase 76 U/L (46-116) Total Protein 6.1 g/dL (6.4-8.2) Albumin 2.7 g/dL (3.4-5.0) Albumin/Globulin Ratio 0.8 (1.0-1.7) Test 07/28/17 20:48 07/29/17 06:05 Glucose (Fingerstick) 188 mg/dL (70-99) White Blood Count 5.4 x10^3/uL (4.0-11.0) Red Blood Count 4.17 x10^6/uL (4.30-5.70) Hemoglobin 13.3 g/dL (13.0-17.5) Hematocrit 39.1 % (39.0-53.0) Mean Corpuscular Volume 94 fL (79-100) Mean Corpuscular Hemoglobin 32 pg (25-35) Mean Corpuscular Hemoglobin Concent 34 g/dL (31-37) Red Cell Distribution Width 12.9 % (11.5-14.5) Platelet Count 169 x10^3/uL (140-400) Neutrophils (%) (Auto) 61 % (31-73) Lymphocytes (%) (Auto) 22 % (24-48) Monocytes (%) (Auto) 15 % (0-9) Eosinophils (%) (Auto) 2 % (0-3) Basophils (%) (Auto) 0 % (0-3) Neutrophils # (Auto) 3.3 x10^3uL (1.8-7.7) Lymphocytes # (Auto) 1.2 x10^3/uL (1.0-4.8) Monocytes # (Auto) 0.8 x10^3/uL (0.0-1.1) Eosinophils # (Auto) 0.1 x10^3/uL (0.0-0.7) Basophils # (Auto) 0.0 x10^3/uL (0.0-0.2) Sodium Level 145 mmol/L (136-145) Potassium Level 3.3 mmol/L (3.5-5.1) Chloride Level 100 mmol/L (98-107) Carbon Dioxide Level 41 mmol/L (21-32) Anion Gap 4 (6-14) Blood Urea Nitrogen 39 mg/dL (8-26) Creatinine 2.1 mg/dL (0.7-1.3) Estimated GFR (Cockcroft-Gault) 30.0 BUN/Creatinine Ratio 19 (6-20) Glucose Level 132 mg/dL (70-99) Calcium Level 9.1 mg/dL (8.5-10.1) Magnesium Level 2.2 mg/dL (1.8-2.4) Total Bilirubin 0.5 mg/dL (0.2-1.0) Aspartate Amino Transf (AST/SGOT) 16 U/L (15-37) Alanine Aminotransferase (ALT/SGPT) 23 U/L (16-63) Alkaline Phosphatase 73 U/L (46-116) Total Protein 5.9 g/dL (6.4-8.2) Albumin 2.7 g/dL (3.4-5.0) Albumin/Globulin Ratio 0.8 (1.0-1.7) Microbiology 07/27/17 Blood Culture - Preliminary, Resulted NO GROWTH AFTER 1 DAY Medications Current Medications Potassium Chloride 100 ml @ 50 mls/hr 1X ONCE IV Last administered on at 11:35; Start 07/27/17 at 10:45; Stop 07/27/17 at 12:45; Status DC Levofloxacin/ Dextrose 150 ml @ 150 mls/hr 1X ONCE IV Last administered on at 11:36; Start 07/27/17 at 11:00; Stop 07/27/17 at 11:59; Status DC Vancomycin HCl 1 gm/Sodium Chloride 250 ml @ 250 mls/hr 1X ONCE IV ; Start at 10:45; Stop 07/27/17 at 11:44; Status UNV Lactated Ringer's 0 ml @ 1,000 mls/hr 1X ONCE IV Last administered on at 11:35; Start 07/27/17 at 10:45; Stop 07/27/17 at 10:54; Status DC Vancomycin HCl 2 gm/Sodium Chloride 500 ml @ 250 mls/hr 1X ONCE IV Last administered on 07/27/17at 11:15; Start 07/27/17 at 11:15; Stop 07/27/17 at 13:14 ; Status DC Sodium Chloride 500 ml @ As Directed STK-MED ONCE .ROUTE ; Start 07/27/17 at 11 :18; Stop 07/27/17 at 11:19; Status DC Vancomycin HCl 1 gm STK-MED ONCE .ROUTE ; Start 07/27/17 at 11:19; Stop at 11:20; Status DC Acetaminophen (Tylenol) 325 mg QHS PO Last administered on 07/28/17at 19:55; Start 07/27/17 at 21:00 Acetaminophen (Tylenol) 650 mg PRN Q6HRS PRN PO PAIN / TEMP; Start 07/27/17 at 16:15 Apixaban (Eliquis) 2.5 mg BID PO Last administered on 07/29/17at 07:32; Start at 21:00 Atorvastatin Calcium (Lipitor) 20 mg QHS PO Last administered on 07/28/17at 19: 54; Start 07/27/17 at 21:00 Clonazepam (KlonoPIN) 0.5 mg BID PO Last administered on 07/29/17at 07:31; Start 07/27/17 at 21:00 Clopidogrel Bisulfate (Plavix) 75 mg DAILY PO Last administered on 07/29/17at 07 :31; Start 07/28/17 at 09:00 Diltiazem HCl (Cardizem 24hr Cd) 180 mg DAILY PO Last administered on at 07:31; Start 07/28/17 at 09:00 Docusate Sodium (Colace) 100 mg BID PO Last administered on 07/29/17at 07:32; Start 07/27/17 at 21:00 Furosemide (Lasix) 80 mg DAILY PO Last administered on 07/28/17at 07:57; Start 07/28/17 at 09:00; Stop 07/28/17 at 10:39; Status DC Guaifenesin (Guaifenesin) 200 mg PRN BID PRN PO COUGH Last administered on 07/28at 07:56; Start 07/27/17 at 16:15 Albuterol/ Ipratropium (Duoneb) 3 ml TID NEB ; Start 07/27/17 at 21:00; Stop at 21:00; Status DC Lactobacillus Rhamnosus (Culturelle) 1 cap BID PO Last administered on at 07:32; Start 07/27/17 at 21:00 Metoprolol Tartrate (Lopressor) 50 mg BID PO Last administered on 07/29/17at 07: 31; Start 07/27/17 at 21:00 Ondansetron HCl (Zofran Odt) 4 mg PRN Q8HRS PRN PO NAUSEA; Start 07/27/17 at 16 :15 Polyethylene Glycol (miraLAX) 17 gm DAILY PO Last administered on 07/28/17at 07: 55; Start 07/28/17 at 09:00 Prednisone (Prednisone) 10 mg DAILY PO Last administered on 07/29/17at 07:32; Start 07/28/17 at 09:00 Fluticasone Propionate (Flonase) 2 spray DAILY NS Last administered on at 07:34; Start 07/28/17 at 09:00 Non-Formulary Medication 2 puff QID PRN IH SHORTNESS OF BREATH; Start 07/27/17 at 16:15; Status UNV Non-Formulary Medication 1 cap QHS IH ; Start 07/27/17 at 21:00; Status UNV Ipratropium [place] (Atrovent) 0.5 mg PRN QID PRN NEB SHORTNESS OF BREATH; Start 07/27/17 at 16:30 Albuterol/ Ipratropium (Duoneb) 3 ml RTQID NEB Last administered on 07/29/17at 06:01; Start 07/27/17 at 20:00 Potassium Chloride (Klor-Con) 20 meq TIDWMEALS PO ; Start 07/28/17 at 08:00; Stop 07/28/17 at 09:05; Status DC Potassium Chloride (Klor-Con) 20 meq 1X ONCE PO Last administered on at 23:37; Start 07/27/17 at 23:30; Stop 07/27/17 at 23:31; Status DC Potassium Chloride (Klor-Con) 40 meq Q2H PO Last administered on 07/28/17at 09: 33; Start 07/28/17 at 08:00; Stop 07/28/17 at 10:01; Status DC Potassium Chloride (Klor-Con) 40 meq TIDWMEALS PO Last administered on at 07:32; Start 07/28/17 at 12:00 Magnesium Sulfate/ Dextrose 100 ml @ 100 mls/hr 1X ONCE IV Last administered on 07/28/17at 17:54; Start 07/28/17 at 17:45; Stop 07/28/17 at 18:45; Status DC Insulin Aspart (NovoLOG) 0-9 UNITS QIDACHS SQ ; Start 07/28/17 at 21:00 Dextrose 12.5 gm PRN Q15MIN PRN IV SEE COMMENTS; Start 07/28/17 at 17:45 Magnesium Hydroxide (Milk Of Magnesia) 2,400 mg PRN DAILY PRN PO CONSTIPATION Last administered on 07/29/17at 07:31; Start 07/29/17 at 07:30 Active Scripts Active Atorvastatin Calcium 20 Mg Tablet 20 Mg PO QHS Ondansetron Odt (Ondansetron) 4 Mg Tab.rapdis 1 Tab PO PRN Q8HRS PRN Tylenol (Acetaminophen) 325 Mg Tablet 650 Mg PO PRN PRN Prednisone 10 Mg Tablet 10 Mg PO DAILY 30 Days Guaifenesin 200 Mg Tablet 200 Mg PO BID PRN 30 Days Furosemide 40 Mg Tablet 80 Mg PO DAILY 30 Days Culturelle (Lactobacillus Rhamnosus Gg) 1 Each Cap.sprink 1 Cap PO BID 60 Days Reported Cartia Xt (Diltiazem Hcl) 180 Mg Cap.er.24h 180 Mg PO DAILY Eliquis (Apixaban) 2.5 Mg Tablet 2.5 Mg PO BID Flonase Allergy Relief (Fluticasone Propionate) 9.9 Ml Grover.susp 2 Sprays NS DAILY Spiriva (Tiotropium Star[place]) 18 Mcg Cap.w.dev 1 Cap IH QHS Tylenol (Acetaminophen) 325 Mg Tablet 1 Tab PO QHS Miralax (Polyethylene Glycol 3350) 17 Gm Powd.pack 1 Packet PO DAILY Duoneb 0.5-3(2.5) Mg/3 Ml (Albuterol/Ipratropium) 3 Ml Ampul.neb 3 Ml NEB TID Colace (Docusate Sodium) 100 Mg Capsule 1 Cap PO BID Plavix (Clopidogrel Bisulfate) 75 Mg Tablet 1 Tab PO DAILY Metoprolol Tartrate 50 Mg Tablet 1 Tab PO BID Atrovent Hfa (Ipratropium Star[place]) 12.9 Gm Hfa.aer.ad 2 Puff IH QID PRN Clonazepam 0.5 Mg Tablet 1 Tab PO BID Vitals/I & O Vital Sign - Last 24 Hours 07/28/17 07/28/17 07/28/17 07/28/17 09:30 11:00 11:40 14:30 Pulse 61 74 Resp 18 20 B/P (MAP) 109/43 (65) 110/84 (93) Pulse Ox 96 96 96 O2 Delivery Nasal Cannula Nasal Cannula Nasal Cannula Nasal Cannula O2 Flow Rate 2.0 2.0 2.0 2.0 07/28/17 07/28/17 07/28/17 07/28/17 15:00 16:00 16:28 19:00 Temp 97.0 Pulse 80 88 Resp 20 20 B/P (MAP) 115/74 (88) 104/79 (87) Pulse Ox 96 97 97 O2 Delivery Nasal Cannula Nasal Cannula Nasal Cannula Nasal Cannula O2 Flow Rate 2.0 2.0 2.0 2.0 07/28/17 07/28/17 07/28/17 07/28/17 20:00 20:30 20:59 22:53 Temp 97.5 Pulse 79 69 Resp 18 18 B/P (MAP) 109/61 (77) 103/54 (70) Pulse Ox 97 97 97 O2 Delivery Nasal Cannula Nasal Cannula Nasal Cannula Nasal Cannula O2 Flow Rate 2.0 2.0 2.0 2.0 07/28/17 07/28/17 07/29/17 07/29/17 22:58 23:59 00:58 02:58 Pulse 69 69 62 Resp 18 18 18 B/P (MAP) 106/50 (68) 131/70 (90) 112/59 (76) Pulse Ox 97 97 97 O2 Delivery Nasal Cannula Nasal Cannula Nasal Cannula Nasal Cannula O2 Flow Rate 2.0 2.0 2.0 2.0 07/29/17 07/29/17 07/29/17 07/29/17 04:00 04:58 06:01 07:31 Pulse 61 88 Resp 18 B/P (MAP) 121/55 (77) Pulse Ox 97 96 O2 Delivery Nasal Cannula Nasal Cannula Nasal Cannula O2 Flow Rate 2.0 2.0 2.0 07/29/17 07/29/17 07/29/17 07:31 07:32 08:00 Temp 97.5 Pulse 80 O2 Delivery Nasal Cannula O2 Flow Rate 2.0 Intake and Output 07/28/17 07/28/17 07/29/17 14:59 22:59 06:59 Intake Total 700 ml 740 ml 200 ml Output Total 200 ml 1150 ml 450 ml Balance 500 ml -410 ml -250 ml RUFUS ARGUETA [employer] Jul 29, 2017 08:47
[2017-07-29] MEDS: POLYETHYLENE GLYCOL 3350 17 GM PACKET. PO SCH (09:00)
--- NOTE | 2017-07-29 10:25 | RAD ---
Chest, 2 views, 07/29/2017: History: Pneumonia Comparison is made to a study from 07/27/2017. The heart size and pulmonary vascularity are normal. There is mild tortuosity of the thoracic aorta. There or mild persistent streaky left basilar opacities compatible with atelectasis and/or scarring. No dense pulmonary consolidation is seen. There is no evidence of pleural fluid. IMPRESSION: Mild unchanged streaky left basilar atelectasis and/or scarring.
[2017-07-29] MEDS ORDERED: BISACODYL TAB 5 MG TABLET.DR. PO PRN (16:30)
[2017-07-29] MEDS: ATORVASTATIN CALCIUM 20 MG TABLET PO SCH (21:51)
[2017-07-29] MEDS: ACETAMINOPHEN 325 MG TABLET PO SCH (21:51)
[2017-07-30 01:19] VITALS: BP 115/61
[2017-07-30 04:00] VITALS: BP 118/62
[2017-07-30] MEDS: IPRATRPIUM/ALBUTEROL 0.5/2.5MG 3 ML NEBU. NEB SCH ×2 (05:55→09:29)
[2017-07-30 06:54] LABS: CALCIUM 8.9 mg/dL (8.5-10.1); CREATININE 1.8 mg/dL (0.7-1.3); GFR 35.8; POTASSIUM 3.8 mmol/L (3.5-5.1)
[2017-07-30] MEDS: INSULIN ASPART 300 UNITS/3 ML INSULN.PEN SQ SCH ×2 (07:30→11:30)
[2017-07-30] MEDS: METOPROLOL TART IMMED RELEASE 50 MG TABLET PO SCH (08:18)
[2017-07-30] MEDS: CLOPIDOGREL BISULFATE 75 MG TABLET PO SCH (08:18)
[2017-07-30] MEDS: POLYETHYLENE GLYCOL 3350 17 GM PACKET. PO SCH (08:18)
[2017-07-30] MEDS: DOCUSATE SODIUM 100 MG CAPSULE PO SCH (08:18)
[2017-07-30 08:19] VITALS: BP 121/82
[2017-07-30] MEDS: APIXABAN 2.5 MG TABLET PO SCH (08:19)
[2017-07-30] MEDS: LACTOBACILLUS RHAMNOSUS GG 1 CAPSULE. PO SCH (08:19)
[2017-07-30] MEDS: predniSONE 10 MG TABLET PO SCH (08:19)
[2017-07-30] MEDS: POTASSIUM CHLORIDE 20 MEQ TABLET.ER. PO SCH ×2 (08:19→12:16)
[2017-07-30] MEDS: clonazePAM 0.5 MG TABLET PO SCH (08:19)
[2017-07-30] MEDS: FLUTICASONE 50MCG/NASAL SPRAY 16GM BOTTLE. NS SCH (08:26)
--- NOTE | 2017-07-30 11:02 | PDOC ---
PROGRESS NOTES Diagnosis Problem Problems Medical Problems: (1) Hypokalemia Status: Acute Assessment Problems Medical Problems: (1) Hypokalemia Status: Acute 1. elevated troponin in the setting of COPD exacerbation and PNA as well as ARF - Continue supportive care. Echo 2 weeks ago revealed normal LV function. Continue medical mgmt and RF reduction. Plan for outpatient MPI. 2. paroxysmal atrial fibrillation - maintaining sinus rhythm. Continue Apixaban for stroke prophylaxis. 3. Respiratory insufficiency secondary to COPD exacerbation and HCAP - improved , mgmt per PCP. plans to discharge to [place] today. 4. ARF- improved off diuretics. Cr back to baseline. 5. hypokalemia - improved, now WNL. Problems: Subjective feeling better. no chest pain, breathing easy, still occ cough. Objective Vital Signs Date Time Temp Pulse Resp B/P (MAP) Pulse Ox O2 Delivery O2 Flow Rate FiO2 07/30/17 09:29 91 Nasal Cannula 2.0 07/30/17 08:19 79 121/82 07/30/17 08:15 97.7 07/30/17 04:00 20 Intake and Output 07/30/17 07:00 Intake Total 2910 ml Output Total 1625 ml Balance 1285 ml Intake Oral 2910 ml Output Urine Total 1625 ml Abdomen: Normal bowel sounds, Soft Heart: Regular rate, Normal S1, Normal S2 Extremities: No cyanosis, Normal pulses, Other (1+ edema) General: Alert, Oriented X3, Cooperative, No acute distress Lungs: Other (decreased bilateral bases, no crackles, wheezes or rhonchi) Neuro: Normal speech, Strength at 5/5 X4 ext Psych/Mental Status: Mental status NL, Mood NL Review of Relevant I have reviewed the following items bhupinder (where applicable) has been applied. Labs Laboratory Tests Test 07/28/17 14:47 07/28/17 20:48 07/29/17 06:05 07/29/17 11:25 Sodium Level 141 mmol/L (136-145) 145 mmol/L (136-145) Potassium Level 3.4 mmol/L (3.5-5.1) 3.3 mmol/L (3.5-5.1) Chloride Level 95 mmol/L (98-107) 100 mmol/L (98-107) Carbon Dioxide Level 43 mmol/L (21-32) 41 mmol/L (21-32) Anion Gap 3 (6-14) 4 (6-14) Blood Urea Nitrogen 44 mg/dL (8-26) 39 mg/dL (8-26) Creatinine 2.4 mg/dL (0.7-1.3) 2.1 mg/dL (0.7-1.3) Estimated GFR (Cockcroft-Gault) 25.7 30.0 Glucose Level 255 mg/dL (70-99) 132 mg/dL (70-99) Calcium Level 9.0 mg/dL (8.5-10.1) 9.1 mg/dL (8.5-10.1) Glucose (Fingerstick) 188 mg/dL (70-99) 188 mg/dL (70-99) White Blood Count 5.4 x10^3/uL (4.0-11.0) Red Blood Count 4.17 x10^6/uL (4.30-5.70) Hemoglobin 13.3 g/dL (13.0-17.5) Hematocrit 39.1 % (39.0-53.0) Mean Corpuscular Volume 94 fL (79-100) Mean Corpuscular Hemoglobin 32 pg (25-35) Mean Corpuscular Hemoglobin Concent 34 g/dL (31-37) Red Cell Distribution Width 12.9 % (11.5-14.5) Platelet Count 169 x10^3/uL (140-400) Neutrophils (%) (Auto) 61 % (31-73) Lymphocytes (%) (Auto) 22 % (24-48) Monocytes (%) (Auto) 15 % (0-9) Eosinophils (%) (Auto) 2 % (0-3) Basophils (%) (Auto) 0 % (0-3) Neutrophils # (Auto) 3.3 x10^3uL (1.8-7.7) Lymphocytes # (Auto) 1.2 x10^3/uL (1.0-4.8) Monocytes # (Auto) 0.8 x10^3/uL (0.0-1.1) Eosinophils # (Auto) 0.1 x10^3/uL (0.0-0.7) Basophils # (Auto) 0.0 x10^3/uL (0.0-0.2) BUN/Creatinine Ratio 19 (6-20) Magnesium Level 2.2 mg/dL (1.8-2.4) Total Bilirubin 0.5 mg/dL (0.2-1.0) Aspartate Amino Transf (AST/SGOT) 16 U/L (15-37) Alanine Aminotransferase (ALT/SGPT) 23 U/L (16-63) Alkaline Phosphatase 73 U/L (46-116) Total Protein 5.9 g/dL (6.4-8.2) Albumin 2.7 g/dL (3.4-5.0) Albumin/Globulin Ratio 0.8 (1.0-1.7) Test 07/29/17 16:55 07/29/17 21:38 07/30/17 05:50 07/30/17 07:50 Glucose (Fingerstick) 232 mg/dL (70-99) 171 mg/dL (70-99) 103 mg/dL (70-99) Sodium Level 144 mmol/L (136-145) Potassium Level 3.8 mmol/L (3.5-5.1) Chloride Level 102 mmol/L (98-107) Carbon Dioxide Level 41 mmol/L (21-32) Anion Gap 1 (6-14) Blood Urea Nitrogen 34 mg/dL (8-26) Creatinine 1.8 mg/dL (0.7-1.3) Estimated GFR (Cockcroft-Gault) 35.8 Glucose Level 126 mg/dL (70-99) Calcium Level 8.9 mg/dL (8.5-10.1) Microbiology 07/27/17 Blood Culture - Preliminary, Resulted NO GROWTH AFTER 3 DAYS Medications Current Medications Potassium Chloride 100 ml @ 50 mls/hr 1X ONCE IV Last administered on at 11:35; Start 07/27/17 at 10:45; Stop 07/27/17 at 12:45; Status DC Levofloxacin/ Dextrose 150 ml @ 150 mls/hr 1X ONCE IV Last administered on at 11:36; Start 07/27/17 at 11:00; Stop 07/27/17 at 11:59; Status DC Vancomycin HCl 1 gm/Sodium Chloride 250 ml @ 250 mls/hr 1X ONCE IV ; Start at 10:45; Stop 07/27/17 at 11:44; Status UNV Lactated Ringer's 0 ml @ 1,000 mls/hr 1X ONCE IV Last administered on at 11:35; Start 07/27/17 at 10:45; Stop 07/27/17 at 10:54; Status DC Vancomycin HCl 2 gm/Sodium Chloride 500 ml @ 250 mls/hr 1X ONCE IV Last administered on 07/27/17at 11:15; Start 07/27/17 at 11:15; Stop 07/27/17 at 13:14 ; Status DC Sodium Chloride 500 ml @ As Directed STK-MED ONCE .ROUTE ; Start 07/27/17 at 11 :18; Stop 07/27/17 at 11:19; Status DC Vancomycin HCl 1 gm STK-MED ONCE .ROUTE ; Start 07/27/17 at 11:19; Stop at 11:20; Status DC Acetaminophen (Tylenol) 325 mg QHS PO Last administered on 07/29/17at 21:51; Start 07/27/17 at 21:00 Acetaminophen (Tylenol) 650 mg PRN Q6HRS PRN PO PAIN / TEMP; Start 07/27/17 at 16:15 Apixaban (Eliquis) 2.5 mg BID PO Last administered on 07/30/17at 08:19; Start at 21:00 Atorvastatin Calcium (Lipitor) 20 mg QHS PO Last administered on 07/29/17at 21: 51; Start 07/27/17 at 21:00 Clonazepam (KlonoPIN) 0.5 mg BID PO Last administered on 07/30/17at 08:19; Start 07/27/17 at 21:00 Clopidogrel Bisulfate (Plavix) 75 mg DAILY PO Last administered on 07/30/17at 08 :18; Start 07/28/17 at 09:00 Diltiazem HCl (Cardizem 24hr Cd) 180 mg DAILY PO Last administered on at 08:19; Start 07/28/17 at 09:00 Docusate Sodium (Colace) 100 mg BID PO Last administered on 07/30/17at 08:18; Start 07/27/17 at 21:00 Furosemide (Lasix) 80 mg DAILY PO Last administered on 07/28/17at 07:57; Start 07/28/17 at 09:00; Stop 07/28/17 at 10:39; Status DC Guaifenesin (Guaifenesin) 200 mg PRN BID PRN PO COUGH Last administered on 07/28at 07:56; Start 07/27/17 at 16:15 Albuterol/ Ipratropium (Duoneb) 3 ml TID NEB ; Start 07/27/17 at 21:00; Stop at 21:00; Status DC Lactobacillus Rhamnosus (Culturelle) 1 cap BID PO Last administered on at 08:19; Start 07/27/17 at 21:00 Metoprolol Tartrate (Lopressor) 50 mg BID PO Last administered on 07/30/17at 08: 18; Start 07/27/17 at 21:00 Ondansetron HCl (Zofran Odt) 4 mg PRN Q8HRS PRN PO NAUSEA; Start 07/27/17 at 16 :15 Polyethylene Glycol (miraLAX) 17 gm DAILY PO Last administered on 07/30/17at 08: 18; Start 07/28/17 at 09:00 Prednisone (Prednisone) 10 mg DAILY PO Last administered on 07/30/17at 08:19; Start 07/28/17 at 09:00 Fluticasone Propionate (Flonase) 2 spray DAILY NS Last administered on at 08:26; Start 07/28/17 at 09:00 Non-Formulary Medication 2 puff QID PRN IH SHORTNESS OF BREATH; Start 07/27/17 at 16:15; Status UNV Non-Formulary Medication 1 cap QHS IH ; Start 07/27/17 at 21:00; Status UNV Ipratropium [place] (Atrovent) 0.5 mg PRN QID PRN NEB SHORTNESS OF BREATH; Start 07/27/17 at 16:30 Albuterol/ Ipratropium (Duoneb) 3 ml RTQID NEB Last administered on 07/30/17at 09:29; Start 07/27/17 at 20:00 Potassium Chloride (Klor-Con) 20 meq TIDWMEALS PO ; Start 07/28/17 at 08:00; Stop 07/28/17 at 09:05; Status DC Potassium Chloride (Klor-Con) 20 meq 1X ONCE PO Last administered on at 23:37; Start 07/27/17 at 23:30; Stop 07/27/17 at 23:31; Status DC Potassium Chloride (Klor-Con) 40 meq Q2H PO Last administered on 07/28/17at 09: 33; Start 07/28/17 at 08:00; Stop 07/28/17 at 10:01; Status DC Potassium Chloride (Klor-Con) 40 meq TIDWMEALS PO Last administered on at 08:19; Start 07/28/17 at 12:00 Magnesium Sulfate/ Dextrose 100 ml @ 100 mls/hr 1X ONCE IV Last administered on 07/28/17at 17:54; Start 07/28/17 at 17:45; Stop 07/28/17 at 18:45; Status DC Insulin Aspart (NovoLOG) 0-9 UNITS QIDACHS SQ Last administered on 07/29/17at 17 :13; Start 07/28/17 at 21:00 Dextrose 12.5 gm PRN Q15MIN PRN IV SEE COMMENTS; Start 07/28/17 at 17:45 Magnesium Hydroxide (Milk Of Magnesia) 2,400 mg PRN DAILY PRN PO CONSTIPATION Last administered on 07/29/17at 07:31; Start 07/29/17 at 07:30 Bisacodyl (Dulcolax Tab) 10 mg PRN DAILY PRN PO CONSTIPATION Last administered on 07/29/17at 16:43; Start 07/29/17 at 16:30 Active Scripts Active Atorvastatin Calcium 20 Mg Tablet 20 Mg PO QHS Ondansetron Odt (Ondansetron) 4 Mg Tab.rapdis 1 Tab PO PRN Q8HRS PRN Tylenol (Acetaminophen) 325 Mg Tablet 650 Mg PO PRN PRN Prednisone 10 Mg Tablet 10 Mg PO DAILY 30 Days Guaifenesin 200 Mg Tablet 200 Mg PO BID PRN 30 Days Furosemide 40 Mg Tablet 80 Mg PO DAILY 30 Days Culturelle (Lactobacillus Rhamnosus Gg) 1 Each Cap.sprink 1 Cap PO BID 60 Days Reported Cartia Xt (Diltiazem Hcl) 180 Mg Cap.er.24h 180 Mg PO DAILY Eliquis (Apixaban) 2.5 Mg Tablet 2.5 Mg PO BID Flonase Allergy Relief (Fluticasone Propionate) 9.9 Ml [place].susp 2 Sprays NS DAILY Spiriva (Tiotropium [place]) 18 Mcg Cap.w.dev 1 Cap IH QHS Tylenol (Acetaminophen) 325 Mg Tablet 1 Tab PO QHS Miralax (Polyethylene Glycol 3350) 17 Gm Powd.pack 1 Packet PO DAILY Duoneb 0.5-3(2.5) Mg/3 Ml (Albuterol/Ipratropium) 3 Ml Ampul.neb 3 Ml NEB TID Colace (Docusate Sodium) 100 Mg Capsule 1 Cap PO BID Plavix (Clopidogrel Bisulfate) 75 Mg Tablet 1 Tab PO DAILY Metoprolol Tartrate 50 Mg Tablet 1 Tab PO BID Atrovent Hfa (Ipratropium [place]) 12.9 Gm Hfa.aer.ad 2 Puff IH QID PRN Clonazepam 0.5 Mg Tablet 1 Tab PO BID Vitals/I & O Vital Sign - Last 24 Hours 07/29/17 07/29/17 07/29/17 07/29/17 11:00 11:07 15:20 17:00 Temp 97.3 Pulse 74 65 Resp 20 18 B/P (MAP) 136/61 (86) 112/58 (76) Pulse Ox 96 96 97 O2 Delivery Nasal Cannula Nasal Cannula Nasal Cannula O2 Flow Rate 2.0 2.0 2.0 07/29/17 07/29/17 07/29/17 07/29/17 20:00 20:00 20:25 21:52 Pulse 74 65 Resp 18 B/P (MAP) 121/64 (83) 112/58 Pulse Ox 96 97 O2 Delivery Nasal Cannula Nasal Cannula Nasal Cannula O2 Flow Rate 2.0 2.0 2.0 07/30/17 07/30/17 07/30/17 07/30/17 01:19 04:00 08:00 08:15 Temp 97.7 Pulse 57 56 Resp 20 20 B/P (MAP) 115/61 (79) 118/62 (80) Pulse Ox 100 98 O2 Delivery Nasal Cannula Nasal Cannula Nasal Cannula O2 Flow Rate 2.0 2.0 2.0 07/30/17 07/30/17 07/30/17 08:18 08:19 09:29 Pulse 79 79 B/P (MAP) 121/82 121/82 Pulse Ox 91 O2 Delivery Nasal Cannula O2 Flow Rate 2.0 Intake and Output 07/29/17 07/29/17 07/30/17 15:00 23:00 07:00 Intake Total 1840 ml 1070 ml 0 ml Output Total 925 ml 400 ml 300 ml Balance 915 ml 670 ml -300 ml RUFUS ARGUETA APRN Jul 30, 2017 11:02
--- NOTE | 2017-07-30 13:40 | PN ---
DATE: 07/29/2017 SUBJECTIVE: An 86-year-old gentleman in with elevated troponin in setting of COPD exacerbation, paroxysmal nocturnal dyspnea as well. The patient otherwise seems to be resting fairly comfortably and making fairly good progress overall. The patient's potassium is improving, acute renal failure seems to be improving as well. He is feeling better overall, little bit stronger. VITAL SIGNS: Blood pressure 120/50, respiratory rate 16, pulse 74, afebrile. GENERAL: The patient is alert and oriented x 3. Speech fluent, spontaneous, appropriate. LUNGS: Diminished throughout, decreased occasional rhonchi. CARDIOVASCULAR: CVR Regular sinus rhythm, S1, S2. ABDOMEN: Soft, nontender, protuberant. EXTREMITIES: No clubbing, cyanosis. Some petechiae noted on the legs, probably from the wrappings. We will change the wrappings. LABORATORY DATA: Otherwise, his potassium has come up to 3.3. He continues to get potassium supplementation. Otherwise, his BUN and creatinine have come down to 39 and 2.1. Blood sugar 132. The patient's albumin down to 2.7. We will continue to monitor him accordingly. Make further evaluation on him as indicated and will make further assessment per those results. IMPRESSION: The patient will be monitored carefully, make further evaluation on him as indicated. Hypokalemia; elevated troponin; paroxysmal atrial fibrillation; exacerbation of chronic obstructive pulmonary disease; acute renal failure, improving; acute on top of chronic renal failure; and hypokalemia, improving. Continue with present course. JOÃO GILES MD DR: CARISSA/jaida JOB#: [id number] / [id number]
--- NOTE | 2017-07-30 19:07 | DS ---
DATE OF DISCHARGE: 07/30/2017 HOSPITAL COURSE: An 86-year-old male being transferred to [facility] for rehabilitation today. The patient initially admitted on 07/27/2017. Came in with extreme weakness. The patient's potassium was 2.3. His BUN and creatinine were elevated and his lactic acid was elevated for that matter. The patient was admitted to the hospital for further evaluation and correction of the above-mentioned medical complaint. The patient was noted to have an elevated troponin. He also had acute on top of chronic renal failure, respiratory insufficiency with acute exacerbation of COPD. The patient made good progress. His potassium was corrected. His CBC was all within normal range. His last BUN and creatinine was 34 and 1.8, potassium of 3.8. The patient's urine was basically unremarkable. The patient made excellent progress. See MRAD. Decreased activity. He will be discharged to rehab at [facility]. IMPRESSION: Therefore, exacerbation of chronic obstructive pulmonary disease, elevated troponin, hypokalemia, acute on top of chronic renal failure, moderate protein malnutrition. JOÃO GILES MD DR: CARISSA/jaida JOB#: [id number] / [id number]
== END 2017-07-30 15:10 | DRG 871 ==
LOC: ER 09:25 → ICU 11:10
PROVIDERS: ADMIT Family Medicine; ATTEND Family Medicine
DX: A41.9 Sepsis, unspecified organism (principal); J18.9 Pneumonia, unspecified organism; N17.9 Acute kidney failure, unspecified; E44.0 Moderate protein-calorie malnutrition; I48.0 Paroxysmal atrial fibrillation; I13.0 Hypertensive heart and chronic kidney disease with heart failure and stage 1 through stage 4 chronic kidney disease, or unspecified chronic kidney disease; I48.2 Chronic atrial fibrillation; I50.9 Heart failure, unspecified; J44.0 Chronic obstructive pulmonary disease with (acute) lower respiratory infection; J44.1 Chronic obstructive pulmonary disease with (acute) exacerbation; N18.9 Chronic kidney disease, unspecified; E78.5 Hyperlipidemia, unspecified; E87.6 Hypokalemia; D64.9 Anemia, unspecified; R73.9 Hyperglycemia, unspecified; I73.9 Peripheral vascular disease, unspecified; E78.00 Pure hypercholesterolemia, unspecified; H91.90 Unspecified hearing loss, unspecified ear; K21.9 Gastro-esophageal reflux disease without esophagitis; Y95 Nosocomial condition; F41.9 Anxiety disorder, unspecified; Z95.820 Peripheral vascular angioplasty status with implants and grafts; Z86.73 Personal history of transient ischemic attack (TIA), and cerebral infarction without residual deficits; Z88.0 Allergy status to penicillin; Z88.2 Allergy status to sulfonamides; Z88.6 Allergy status to analgesic agent; Z79.899 Other long term (current) drug therapy; Z79.02 Long term (current) use of antithrombotics/antiplatelets; Z79.01 Long term (current) use of anticoagulants; Z68.35 Body mass index [BMI] 35.0-35.9, adult
CPT/HCPCS: 36415; 71045; 71046; 80048; 80053; 81001; 82553; 82947; 83605; 83690; 83735; 83880; 84484; 85025; 85379; 85610; 85730; 87040; 87641; 93005; 94640; 96365; 96366; 96368; 99292; J1815; J1956; J3370; J3475; J3480; J7040; J7120; J7512; J7620; 99291-25

== ENCOUNTER 2018-05-12 15:04 | Inpatient (IN) | payer MEDICARE, OTHER ==
[~2018-05-12 15:04] MED LIST changes: +CLON0.5T11 PO; -CLON0.5T3 PO; +DILT180C64 PO; -IPRA3AMP NEB; +IPRA3AMP29 NEB; -POLY255P PO; +POLY255P11 PO
[2018-05-12] MEDS ORDERED: IPRATRPIUM/ALBUTEROL 0.5/2.5MG 3 ML NEBU. NEB ONE (15:15)
[2018-05-12 15:27] LABS: BGAS PH 7.47 (7.35-7.46)
[2018-05-12] MEDS ORDERED: methylPREDNISolone SOD SUCC PF 125 MG/2 ML VIAL. IM ONE (15:30)
[2018-05-12 15:42] LABS: BASO % 0 % (0-3); EOS # 0.1 x10^3/uL (0.0-0.7); EOS % 1 % (0-3); HEMATOCRIT 42.9 % (39.0-53.0); HEMOGLOBIN 14.3 g/dL (13.0-17.5); LYMPH # 0.9 x10^3/uL (1.0-4.8); LYMPH % 8 % (24-48); MEAN CORPUSCULAR HEMOGLOBIN 31 pg (25-35); MEAN CORPUSCULAR HGB CONC 33 g/dL (31-37); MEAN CORPUSCULAR VOLUME 93 fL (79-100); MONO # 0.6 x10^3/uL (0.0-1.1); MONO % 6 % (0-9); NEUT # 9.8 x10^3uL (1.8-7.7); NEUT % 86 % (31-73); PLATELET COUNT 222 x10^3/uL (140-400); RED CELL DISTRIBUTION WIDTH 13.4 % (11.5-14.5); WHITE BLOOD COUNT 11.4 x10^3/uL (4.0-11.0)
[2018-05-12] MEDS ORDERED: methylPREDNISolone SOD SUCC PF 125 MG/2 ML VIAL. IV ONE (15:45)
[2018-05-12 15:58] LABS: ALBUMIN 3.6 g/dL (3.4-5.0); CALCIUM 9.7 mg/dL (8.5-10.1); CREATININE 2.2 mg/dL (0.7-1.3); GFR 28.3; POTASSIUM 3.6 mmol/L (3.5-5.1); TOTAL BILIRUBIN 0.6 mg/dL (0.2-1.0); TOTAL PROTEIN 7.3 g/dL (6.4-8.2)
--- NOTE | 2018-05-12 16:04 | PHYS DOC ---
Past History Past Medical History: A-Fib, CHF, COPD, Hypertension Past Surgical History: Other Smoking: Non-smoker Alcohol Use: None Drug Use: None Adult General Chief Complaint Chief Complaint: SHORTNESS OF BREATH HPI HPI Patient is a 87 year old male who presents with complaining of lower extremity edema. Patient is a half-way resident and had elevation of PCO2 at blood test yesterday and his primary care physician is concern for possible CO2 retaining and wants to have ABG. Patient complaining of chronic lower extremity edema for a while and denies shortness of breath, chest pain, fever and chills, focal neuro deficit. Review of Systems Review of Systems Constitutional: Denies fever or chills [] Eyes: Denies change in visual acuity, redness, or eye pain [] HENT: Denies nasal congestion or sore throat [] Respiratory: Denies cough or shortness of breath [] Cardiovascular: No additional information not addressed in HPI [] GI: Denies abdominal pain, nausea, vomiting, bloody stools or diarrhea [] : Denies dysuria or hematuria [] Musculoskeletal: Denies back pain or joint pain [] Integument: Denies rash or skin lesions [] Neurologic: Denies headache, focal weakness or sensory changes [] Endocrine: Denies polyuria or polydipsia [] All other systems were reviewed and found to be within normal limits, except as documented in this note. Current Medications Current Medications Current Medications Medications (Trade) Dose Ordered Sig/Emeka Start Time Stop Time Status Last Admin Dose Admin Albuterol/ Ipratropium (Duoneb) 3 ml 1X ONCE 05/12/18 15:15 05/12/18 15:24 DC Methylprednisolone Sodium Succinate (SOLU-Medrol 125MG VIAL) 125 mg 1X ONCE 05/12/18 15:30 05/12/18 15:31 DC Allergies Allergies Allergies Coded Allergies Type Severity Reaction Last Updated Verified Penicillins Allergy Intermediate 07/05/17 No Sulfa (Sulfonamide Antibiotics) Allergy Intermediate 07/05/17 No ibuprofen Allergy Intermediate 07/05/17 No Physical Exam Physical Exam Constitutional: Well developed, well nourished, no acute distress, non-toxic appearance. [] HENT: Normocephalic, atraumatic. Eyes: PERRLA, EOMI, conjunctiva normal, no discharge. [] Neck: Normal range of motion, no tenderness, supple, no stridor. [] Cardiovascular:Heart rate regular rhythm, no murmur [] Lungs & Thorax:Bibasilar rales Abdomen: Bowel sounds normal, soft, no tenderness, no masses, no pulsatile masses. [] Skin: Warm, dry, no erythema, no rash. [] Back: No tenderness, no CVA tenderness. [] Extremities: No tenderness, no cyanosis, no clubbing, ROM intact, bilateral lower extremity 4+ edema Neurologic: Alert and oriented X 3, normal motor function, normal sensory function, no focal deficits noted. [] Psychologic: Affect normal, judgement normal, mood normal. [] Current Patient Data Lab Results Laboratory Tests Test 05/12/18 15:10 Blood pH 7.47 (7.35-7.46) H Blood Gas PCO2 65 mmHg (35-46) *H Blood Gas PO2 69 mmHg (71-100) L Blood Gas HCO3 47 mmol/L (21-28) H Arterial Bld O2 Saturation (Calc) 94 % (92-99) FiO2 28 % EKG EKG Page interpreted by me. EKG at 1536 showed normal sinus rhythm at rate of 77, right bundle branch block, nonspecific ST and T wave abnormality, no acute ST-T elevation, Radiology/Procedures Radiology/Procedures [][address] [place] [address] IMAGING REPORT Signed PATIENT: SHILPI AQUINO ACCOUNT: [id number] : 1930 LOCATION: ER AGE: 87 SEX: M EXAM STATUS: REG ER ORD. PHYSICIAN: HEENA LUKE MD REASON: SOB PROCEDURE: PORTABLE CHEST 1V Indication:SOA TECHNIQUE:Portable AP chest X-ray COMPARISON:07/29/2017 FINDINGS: Heart is normal in size. There is small area of consolidation in the lingula. Otherwise, lungs are clear. No pneumothorax or pleural effusion. Visualized bony thorax within normal limits. IMPRESSION: Consolidation in the lingula may be secondary to atelectasis or pneumonia. Follow-up imaging recommended after medical therapy to ensure resolution. Electronically signed by: Nicanor Macias DO (05/12/2018 4:02 PM) [id number] DICTATED AND SIGNED BY: NICANOR MACIAS DO DATE: 05/12/18 1601 CC: JOÃO GILES MD; HEENA LUKE MD ~ Course & Med Decision Making Course & Med Decision Making Pertinent Labs and Imaging studies reviewed. (See chart for details) Evaluation of patient in ER showed 87-year-old male patient on 3 L of home oxygen sent from half-way because of elevation of PCO2. Patient did not have respiratory distress and ABG showed PCO2 of 65 and PO2 of 69 and normal BNP. X-ray was questionable for lingular pneumonia. Lactic acid was normal. Treated with Rocephin, DuoNeb and Solu-Medrol and Lasix . Dr Winchester accepted admission at 1602. Dragon Disclaimer Dragon Disclaimer This electronic medical record was generated, in whole or in part, using a voice recognition dictation system. Departure Departure: Impression: Primary Impression: CO2 retention Additional Impressions: Lower extremity edema Renal insufficiency Uncontrolled diabetes mellitus COPD (chronic obstructive pulmonary disease) Pneumonia Disposition: 09 ADMITTED INPATIENT (at 1603) Admitting Physician: Charles Winchester (accepted admission at 1602) Condition: IMPROVED Referrals: JOÃO GILES MD (PCP) Problem Qualifiers HEENA LUKE MD May 12, 2018 16:04
[2018-05-12] MEDS ORDERED: FUROSEMIDE 40 MG/4 ML VIAL IVP ONE (16:15)
[2018-05-12] MEDS ORDERED: IV NORMAL SALINE 50ML 50 ML ONE (16:31)
[2018-05-12] MEDS ORDERED: cefTRIAXone SODIUM 1 GM VIAL IV ONE (16:31)
[2018-05-12 16:46] LABS: BACTERIA,URINE 0 /HPF (0-FEW); BILIRUBIN,URINE NEG (NEG); CLARITY,URINE CLEAR; COLOR,URINE STRAW; GLUCOSE,URINE 100 mg/dL (NEG); NITRITE,URINE NEG (NEG); RBC,URINE 0 /HPF (0-2); SQUAMOUS EPITHELIAL CELL,UR OCC /LPF; UROBILINOGEN,URINE 0.2 mg/dL (0.2 mg/dL); WBC,URINE RARE /HPF (0-4)
--- NOTE | 2018-05-12 17:32 | NUR ---
The patient, SHILPI AQUINO, 87 y/o, M admitted by JOHANNE MIXON MD, was given written information regarding hospital policies, unit procedures and contact persons. Valuables were checked and admission assessment performed. Pt is alert and orientated, hard of hearing. VSS. Pt currently on 2LNC with saturation of 96%. Pt's lungs are wheezy bilat. Pt is has 3+ pitting edema bilat lower extrem. Pt is currently sitting up in bed, eating dinner with call light within reach. Will CTM.
[2018-05-12] MEDS ORDERED: DEXTROSE 50% 25 GM / 50ML DISP.SYRIN. IV PRN (18:00)
[2018-05-12] MEDS ORDERED: BISACODYL TAB 5 MG TABLET.DR. PO PRN (18:15)
[2018-05-12] MEDS ORDERED: NON FORMULARY ITEM (Ipratropium Bromide (Atrovent Hfa) 2 PUFF) IH PRN (18:15)
[2018-05-12] MEDS ORDERED: POTA20TA84 PO (18:31)
[2018-05-12] MEDS ORDERED: TIOT18CA IH (18:31)
[2018-05-12] MEDS ORDERED: FAMO20TA5 PO (18:31)
[2018-05-12] MEDS ORDERED: METO2.5T PO (18:31)
[2018-05-12] MEDS ORDERED: MULT-460 PO (18:31)
[2018-05-12] MEDS ORDERED: BISA5TAB4 PO (18:31)
[2018-05-12] MEDS ORDERED: IPRATROPIUM BROMIDE 0.5 MG/2.5 ML NEBU. NEB PRN (19:00)
--- NOTE | 2018-05-12 19:13 | HP ---
ADMIT DATE: 05/12/2018 HISTORY OF PRESENT ILLNESS: The patient is an 87-year-old male patient, resident at [facility], has been complaining of increasing shortness of breath and marked swelling of both lower extremities. I did start him on increasing dose of Lasix for 3 consecutive days; however, that did not really resulted any improvement in his swelling and his lab work showed that his bicarbonate was rising as he is very weak and tired. There was concern that he might be retaining carbon dioxide and I did send him to the Emergency Room, where he was extensively evaluated. His blood gases likely showed that his pH was 7.47, although his pCO2 is high. His oxygen saturation and pH showed that he has compensated chronic hypercapnic respiratory failure. He has mild leukocytosis. He has also chronic renal failure and was admitted as his chest x-ray showed that he has consolidation in the lingula, may be secondary to atelectasis and pneumonia. Followup imaging recommended, after medical therapy to ensure resolution. I did actually treated him with Levaquin 750 mg every 48 hours for a total of 10 days. He should finish treatment by now. PAST MEDICAL HISTORY: Significant for hypertension, hyperlipidemia, congestive heart failure, right middle cerebral artery territory infarct with left-sided hemiplegia, has paroxysmal atrial fibrillation, peripheral arterial disease, status post stent deployment, anxiety and hearing loss. PAST SURGICAL HISTORY: Significant for back surgery and stent deployment to his lower extremity. FAMILY HISTORY: Both his parents of old age. SOCIAL HISTORY: He is , currently residing at [facility], has 2 daughters. He is a retired raman, ex-smoker and drinker, quit years ago. He uses a walker. He is normally on 2-3 liters of oxygen by nasal cannula. ALLERGIES: HE IS ALLERGIC TO SULFA DRUGS, PENICILLIN AND IBUPROFEN. MEDICATIONS: He is currently on Plavix 75 mg once a day. He is on Eliquis 2.5 mg twice a day. He is on Accu-Cheks 2 times daily. He is on atorvastatin 20 mg at bedtime, MiraLax 17 grams daily, Colace 100 mg twice a day, multivitamin with mineral 1 tablet once a day, acetaminophen 650 mg every 4 hours as needed, milk of magnesia 30 mL p.o. daily p.r.n. for constipation, Zofran 4 mg p.o. every 8 hours as needed. He is on guaifenesin 400 mg twice a day, Klonopin 0.5 mg twice a day, metoprolol tartrate 50 mg twice a day, famotidine 20 mg daily, Robitussin-DM 10 mL every 4 hours as needed, metolazone 2.5 mg 3 times per week. He is on diltiazem CD 180 mg once a day, Lasix 40 mg, he takes 60 mg orally daily, ipratropium bromide by nebulizer 4 times a day, bisacodyl 5 mg tablet once a day, acetaminophen 1000 mg every 8 hours as needed, Spiriva HandiHaler mist inhaler 2 puffs once a day. He is on potassium chloride extended release 20 mEq twice a day and Flonase 1-2 sprays to each nostril once a day, and prednisone 10 mg daily. REVIEW OF SYSTEMS: The patient denied any blurring of vision, cataract, glaucoma or macular degeneration. Denied any earache, tinnitus or sensorineural deafness. Denied any nosebleeds, stuffy nose or postnasal drip. Denied any sore throat, sore tongue, toothache, hoarseness of voice or difficulty swallowing. Denied any nausea, vomiting, diarrhea or constipation. Denied any hematemesis, melena or hematochezia. Denied any dysuria, frequency or hematuria. Denied any chest pain. Did complain of shortness of breath and orthopnea, marked bilateral lower extremity edema. He has gained about 6 pounds, when I saw his will wait trending upward. PHYSICAL EXAMINATION: GENERAL: When I examined him this afternoon, he was sitting in the edge of the bed comfortably, slightly tachypneic, but not jaundiced, cyanosis or thyromegaly. No jugular venous distention with marked bilateral lower limb edema. VITAL SIGNS: His heart rate was 74, blood pressure 146/86, temperature was 98.2, respiratory rate was 24, and oxygen saturation was 97% on 2 liters of oxygen. HEAD, EYES, EARS, NOSE AND THROAT: Showed normocephalic, atraumatic. NECK: Supple. HEART: Showed normal first and second heart sounds. No gallop, rub or murmur. CHEST: Shows central trachea, equal bilateral chest expansion. Air entry, vesicular sounds with bilateral basal crepitation. I could not really appreciate any rhonchi. ABDOMEN: Distended, soft, nontender. NEUROLOGIC: He is awake, alert, responding appropriately. All cranial nerves are intact. EXTREMITIES: He moves all extremities without difficulty, ambulates with a walker. Examination of the extremities showed no clubbing, cyanosis, but marked bilateral lower limb edema. LABORATORY WORK: Showed a serum sodium of 139, potassium 3.6, chloride 93, bicarbonate 44, anion gap of 22, BUN is 39, creatinine 2.2, estimated GFR was 28 mL per minute. His glucose was 103. Lactic acid was 1.8, calcium was 9.7. Total bilirubin, AST, ALT, alkaline phosphatase were normal. Total CK was only 66. First set of cardiac enzymes showed troponin to be less than 0.017. Beta natriuretic peptide was 309. Total protein was 7.3, albumin 3.6. His blood gases showed a pH of 7.47, pCO2 of 65, pO2 69, bicarbonate 27, and oxygen saturation was 94% on FiO2 of 28%. His white cell count was 11,400, hemoglobin 14, hematocrit 42, MCV 93 and platelet count 222,000 with normal manual differential. His urinalysis was essentially unremarkable. His chest x-ray showed that the heart is normal in size. There is small area of consolidation in the lingula, otherwise lungs are clear, no pneumothorax or pleural effusion, visualized bony thorax within normal limits. IMPRESSION: The patient has consolidation in the lingula may be secondary to atelectasis or pneumonia. Followup imaging recommended after medical therapy to ensure resolution. PLAN: My plan is to continue with all his medication. I will switch him to IV Lasix. He did receive steroids as well as furosemide and the breathing treatment. I will continue with IV antibiotic and I will switch his oral Lasix to be given IV and monitor his labs and consult the cardiology to assist with mobilization of this intractable bilateral lower limb edema. His albumin is actually 3.6, so third spacing or low oncotic pressure is not the cause of this marked swelling of both legs and he is already on apixaban. JOHANNE MIXON MD DR: IAN/jaida JOB#: [id number] / [id number]
[2018-05-12 20:07] VITALS: BP 137/74
[2018-05-12] MEDS: IPRATRPIUM/ALBUTEROL 0.5/2.5MG 3 ML NEBU. NEB SCH (20:19)
[2018-05-12] MEDS: ACETAMINOPHEN 325 MG TABLET PO SCH (20:52)
[2018-05-12] MEDS: FAMOTIDINE 20 MG TABLET PO SCH (20:52)
[2018-05-12] MEDS: ATORVASTATIN CALCIUM 20 MG TABLET PO SCH (20:52)
[2018-05-12] MEDS: clonazePAM 0.5 MG TABLET PO SCH (20:52)
[2018-05-12] MEDS: METOPROLOL TART IMMED RELEASE 50 MG TABLET PO SCH (20:52)
[2018-05-12] MEDS: APIXABAN 2.5 MG TABLET PO SCH (20:52)
[2018-05-12] MEDS: LACTOBACILLUS RHAMNOSUS GG 1 CAPSULE. PO SCH (20:52)
[2018-05-12] MEDS: POTASSIUM CHLORIDE 20 MEQ TABLET.ER. PO SCH (20:52)
[2018-05-12] MEDS: DOCUSATE SODIUM 100 MG CAPSULE PO SCH (20:53)
[2018-05-12] MEDS ORDERED: NON FORMULARY ITEM (Tiotropium Bromide (Spiriva) 1 CAP) IH SCH (21:00)
[2018-05-12] MEDS: INSULIN LISPRO 300 UNITS/3 ML INSULN.PEN. SQ SCH (21:20)
[2018-05-12 23:10] VITALS: BP 124/75
[2018-05-13 05:06] VITALS: BP 151/78
[2018-05-13] MEDS: IPRATRPIUM/ALBUTEROL 0.5/2.5MG 3 ML NEBU. NEB SCH ×4 (05:30→20:33)
--- NOTE | 2018-05-13 05:41 | NUR ---
Cardiology consult called to Dr. Rodarte. L/M with answering service, Dede, awaiting call back.
[2018-05-13 06:34] LABS: BASO % 0 % (0-3); EOS % 0 % (0-3); HEMATOCRIT 38.3 % (39.0-53.0); HEMOGLOBIN 13.2 g/dL (13.0-17.5); LYMPH # 0.9 x10^3/uL (1.0-4.8); LYMPH % 11 % (24-48); MEAN CORPUSCULAR HEMOGLOBIN 32 pg (25-35); MEAN CORPUSCULAR HGB CONC 34 g/dL (31-37); MEAN CORPUSCULAR VOLUME 93 fL (79-100); MONO # 0.3 x10^3/uL (0.0-1.1); MONO % 3 % (0-9); NEUT # 6.7 x10^3uL (1.8-7.7); NEUT % 86 % (31-73); PLATELET COUNT 203 x10^3/uL (140-400); RED BLOOD COUNT 4.14 x10^6/uL (4.30-5.70); WHITE BLOOD COUNT 7.8 x10^3/uL (4.0-11.0)
[2018-05-13 06:48] LABS: ALBUMIN 3.1 g/dL (3.4-5.0); ALBUMIN/GLOBULIN RATIO 0.9 (1.0-1.7); CALCIUM 9.5 mg/dL (8.5-10.1); CREATININE 2.2 mg/dL (0.7-1.3); GFR 28.3; POTASSIUM 3.5 mmol/L (3.5-5.1); TOTAL BILIRUBIN 0.5 mg/dL (0.2-1.0); TOTAL PROTEIN 6.4 g/dL (6.4-8.2)
[2018-05-13] MEDS ORDERED: INSULIN LISPRO 300 UNITS/3 ML INSULN.PEN. SQ SCH (08:00)
[2018-05-13] MEDS: clonazePAM 0.5 MG TABLET PO SCH ×2 (08:02→21:15)
[2018-05-13] MEDS: FAMOTIDINE 20 MG TABLET PO SCH ×2 (08:02→21:15)
[2018-05-13] MEDS: APIXABAN 2.5 MG TABLET PO SCH ×2 (08:02→21:15)
[2018-05-13] MEDS: DOCUSATE SODIUM 100 MG CAPSULE PO SCH ×2 (08:02→21:15)
[2018-05-13] MEDS: LACTOBACILLUS RHAMNOSUS GG 1 CAPSULE. PO SCH ×2 (08:02→21:15)
[2018-05-13] MEDS: POTASSIUM CHLORIDE 20 MEQ TABLET.ER. PO SCH ×2 (08:03→21:15)
[2018-05-13] MEDS: predniSONE 10 MG TABLET PO SCH (08:03)
[2018-05-13] MEDS: CLOPIDOGREL BISULFATE 75 MG TABLET PO SCH (08:03)
[2018-05-13] MEDS: MULTIVITAMIN with MINERAL TABLET. PO SCH (08:03)
[2018-05-13] MEDS: POLYETHYLENE GLYCOL 3350 17 GM PACKET. PO SCH (08:03)
[2018-05-13] MEDS: METOPROLOL TART IMMED RELEASE 50 MG TABLET PO SCH ×2 (08:03→21:15)
[2018-05-13] MEDS: INSULIN LISPRO 300 UNITS/3 ML INSULN.PEN. SQ SCH ×4 (08:17→21:17)
[2018-05-13] MEDS: FLUTICASONE 50MCG/NASAL SPRAY 16GM BOTTLE. NS SCH (08:53)
[2018-05-13] MEDS ORDERED: metOLazone 2.5 MG TABLET PO SCH (09:00)
[2018-05-13] MEDS ORDERED: NON FORMULARY ITEM (Tiotropium Bromide (Spiriva) 1 CAP) IH SCH (09:00)
--- NOTE | 2018-05-13 10:46 | EKG ---
[address] [address] Test Date: 2018-05-12 Test Time: 15:36:28 Pat Name: SHILPI AQUINO Department: Room: 115 A Gender: M Physiotherapy Aide: : 1930 Requested By: HEENA LUKE Order Number: [id number] Reading MD: Martin Rodarte MD Measurements Intervals [place] Rate: 77 P: 0 CT: 164 QRS: 8 QRSD: 132 T: -10 QT: 418 QTc: 475 Interpretive Statements SINUS RHYTHM RIGHT BUNDLE BRANCH BLOCK Electronically Signed On 05-14-2018 9:25:02 CHIEF MECHANICAL OFFICER by Martin Rodarte MD
--- NOTE | 2018-05-13 11:09 | PDOC2 ---
CONSULT Date of Admission DATE: 05/13/18 TIME: 10:59 Reason for Consult: CHF Problem List Problems Medical Problems: (1) CO2 retention Status: Acute (2) COPD (chronic obstructive pulmonary disease) Status: Acute (3) Lower extremity edema Status: Acute (4) Pneumonia Status: Acute (5) Renal insufficiency Status: Acute (6) Uncontrolled diabetes mellitus Status: Acute History of Present Illness Mr Peres is an 87 year old male with history of COPD, HTN, Paroxysmal atrial fibrillation and CKD who presented to the ED due to an elevated co2 on lab result. He reports that he had been in his normal state of health with no new symptoms other than some mild increase in edema. He denies increased congestive symptoms or dyspnea, chest pain, palpitations, lightheadedness or syncope. He denies change in functional status. ABGs completed in the ED revealed elevated Pco2, decreased PO2, elevated Hco3 and normalized Ph. He is currently resting with family at bedside and without complaint. Past Medical History Echo 07/01/17 Grossly normal wall motion, not well visualized due to suboptimal images. Septal motion suggestive of conduction defect. Grossly normal systolic function. EF 55% Technically very difficult study. Limited images. Valves not well visualized. hypertension, hyperlipidemia, CHF, CVA, COPD, pneumonia, anxiety, hearing loss, PAD with peripheral stent, paroxysmal atrial fibrillation, CKD with Cr 1.9-2.1 Past Surgical History back surgery Family History non contributory Social History non smoker, no significant ETOH, no illicit drugs Current Medications Current Medications Albuterol/ Ipratropium (Duoneb) 3 ml 1X ONCE NEB Last administered on at 15:38; Start 05/12/18 at 15:15; Stop 05/12/18 at 15:24; Status DC Methylprednisolone Sodium Succinate (SOLU-Medrol 125MG VIAL) 125 mg 1X ONCE IM ; Start 05/12/18 at 15:30; Stop 05/12/18 at 15:35; Status DC Methylprednisolone Sodium Succinate (SOLU-Medrol 125MG VIAL) 125 mg 1X ONCE IV Last administered on 05/12/18at 15:37; Start 05/12/18 at 15:45; Stop at 16:03; Status DC Furosemide (Lasix) 40 mg 1X ONCE IVP Last administered on 05/12/18at 16:36; Start 05/12/18 at 16:15; Stop 05/12/18 at 16:16; Status DC Ceftriaxone Sodium 1 gm/ Sodium Chloride 50 ml @ 100 mls/hr 1X ONCE IV Last administered on 05/12/18at 16:36; Start 05/12/18 at 16:15; Stop 05/12/18 at 16 :44; Status DC Sodium Chloride 50 ml @ As Directed STK-MED ONCE .ROUTE ; Start 05/12/18 at 16: 31; Stop 05/12/18 at 16:32; Status DC Ceftriaxone Sodium (Rocephin) 1 gm STK-MED ONCE IV ; Start 05/12/18 at 16:31; Stop 05/12/18 at 16:32; Status DC Insulin Human Lispro (HumaLOG) 0-5 UNITS TIDWMEALS SQ ; Start 05/13/18 at 08:00 ; Stop 05/13/18 at 08:00; Status DC Dextrose 12.5 gm PRN Q15MIN PRN IV SEE COMMENTS; Start 05/12/18 at 18:00 Acetaminophen (Tylenol) 325 mg QHS PO Last administered on 05/12/18at 20:52; Start 05/12/18 at 21:00 Apixaban (Eliquis) 2.5 mg BID PO Last administered on 05/13/18at 08:02; Start 05/12/18 at 21:00 Atorvastatin Calcium (Lipitor) 20 mg QHS PO Last administered on 05/12/18at 20: 52; Start 05/12/18 at 21:00 Bisacodyl (Dulcolax Tab) 5 mg PRN DAILY PRN PO CONSTIPATION; Start 05/12/18 at 18:15 Clonazepam (KlonoPIN) 0.5 mg BID PO Last administered on 05/13/18at 08:02; Start 05/12/18 at 21:00 Clopidogrel Bisulfate (Plavix) 75 mg DAILY PO Last administered on 05/13/18at 08:03; Start 05/13/18 at 09:00 Guaifenesin (Guaifenesin) 200 mg PRN BID PRN PO COUGH; Start 05/12/18 at 18:15 Albuterol/ Ipratropium (Duoneb) 3 ml RTQID NEB Last administered on 05/13/18at 09:27; Start 05/12/18 at 20:00 Lactobacillus Rhamnosus (Culturelle) 1 cap BID PO Last administered on at 08:02; Start 05/12/18 at 21:00 Prednisone (Prednisone) 10 mg DAILY PO Last administered on 05/13/18at 08:03; Start 05/13/18 at 09:00 Diltiazem HCl (Cardizem 24hr Cd) 180 mg DAILY PO Last administered on at 08:03; Start 05/13/18 at 09:00 Docusate Sodium (Colace) 100 mg BID PO Last administered on 05/13/18at 08:02; Start 05/12/18 at 21:00 Famotidine (Pepcid) 20 mg BID PO Last administered on 05/13/18at 08:02; Start 05/12/18 at 21:00 Fluticasone Propionate (Flonase) 2 spray DAILY NS ; Start 05/13/18 at 09:00 Non-Formulary Medication (Ipratropium [place] (Atrovent Hfa)) 2 puff QID PRN IH SHORTNESS OF BREATH; Start 05/12/18 at 18:15; Status UNV Metolazone (Zaroxolyn) 2.5 mg 3X/WEEK PO Last administered on 05/13/18at 08:03 ; Start 05/13/18 at 09:00 Metoprolol Tartrate (Lopressor) 50 mg BID PO Last administered on 05/13/18at 08 :03; Start 05/12/18 at 21:00 Multivitamins/ Calcium (Thera-M Plus) 1 tab DAILY PO Last administered on 05/13at 08:03; Start 05/13/18 at 09:00 Polyethylene Glycol (miraLAX) 17 gm DAILY PO Last administered on 05/13/18at 08 :03; Start 05/13/18 at 09:00 Potassium Chloride (Klor-Con) 20 meq BID PO Last administered on 05/13/18at 08: 03; Start 05/12/18 at 21:00 Non-Formulary Medication (Tiotropium [place] (Spiriva)) 1 cap DAILY IH ; Start 05/13/18 at 09:00; Status UNV Non-Formulary Medication (Tiotropium [place] (Spiriva)) 1 cap QHS IH ; Start at 21:00; Status UNV Ipratropium [place] (Atrovent) 0.5 mg PRN QID PRN NEB SHORTNESS OF BREATH; Start 05/12/18 at 19:00 Insulin Human Lispro (HumaLOG) 0-5 UNITS TIDWMEALHC SQ Last administered on at 08:17; Start 05/12/18 at 21:00 Active Scripts Active Atorvastatin Calcium 20 Mg Tablet 20 Mg PO QHS Ondansetron Odt (Ondansetron) 4 Mg Tab.rapdis 1 Tab PO PRN Q8HRS PRN Tylenol (Acetaminophen) 325 Mg Tablet 650 Mg PO PRN PRN Prednisone 10 Mg Tablet 10 Mg PO DAILY 30 Days Guaifenesin 200 Mg Tablet 200 Mg PO BID PRN 30 Days Culturelle (Lactobacillus Rhamnosus Gg) 1 Each Cap.sprink 1 Cap PO BID 60 Days Reported K-Tab ER (Potassium Chloride) 20 Meq Tablet.er 20 Meq PO BID Spiriva (Tiotropium Enid) 18 Mcg Cap.w.dev 1 Cap IH DAILY Bisacodyl 5 Mg Tablet.dr 5 Mg PO PRN DAILY PRN Metolazone 2.5 Mg Tablet 2.5 Mg PO 3X/WEEK Famotidine 20 Mg Tablet 1 Tab PO BID Multiple Vitamin (Multivitamin With Minerals) 1 Each Tablet 1 Each PO DAILY Cartia Xt (Diltiazem Hcl) 180 Mg Cap.er.24h 180 Mg PO DAILY Eliquis (Apixaban) 2.5 Mg Tablet 2.5 Mg PO BID Flonase Allergy Relief (Fluticasone Propionate) 9.9 Ml Perry.susp 2 Sprays NS DAILY Spiriva (Tiotropium Enid) 18 Mcg Cap.w.dev 1 Cap IH QHS Tylenol (Acetaminophen) 325 Mg Tablet 1 Tab PO QHS Miralax (Polyethylene Glycol 3350) 17 Gm Powd.pack 1 Packet PO DAILY Duoneb 0.5-3(2.5) Mg/3 Ml (Albuterol/Ipratropium) 3 Ml Ampul.neb 3 Ml NEB TID Colace (Docusate Sodium) 100 Mg Capsule 1 Cap PO BID Plavix (Clopidogrel Bisulfate) 75 Mg Tablet 1 Tab PO DAILY Metoprolol Tartrate 50 Mg Tablet 1 Tab PO BID Atrovent Hfa (Ipratropium Enid) 12.9 Gm Hfa.aer.ad 2 Puff IH QID PRN Clonazepam 0.5 Mg Tablet 1 Tab PO BID Allergies: Coded Allergies: Penicillins (Unverified Allergy, Intermediate, 07/05/17) Sulfa (Sulfonamide Antibiotics) (Unverified Allergy, Intermediate, 07/05/17) ibuprofen (Unverified Allergy, Intermediate, 07/05/17) Review of System as per HPI or as below otherwise negative Respiratory: YES: Cough, Other (shortness of breath at baseline) Cardiovascular: yes: Edema General: Alert, Oriented X3, Cooperative, No acute distress HEENT: Atraumatic, EOMI, Mucous membr. moist/pink Lungs: Other (basilar crackles) Heart: Normal S1, Normal S2, Other (no gallops, clicks or rubs) Abdomen: Normal bowel sounds, Soft Extremities: No cyanosis, Other (+2-3 edema, compression hose on) Neuro: Normal speech, Strength at 5/5 X4 ext Psych/Mental Status: Mental status NL, Mood NL VITALS Vital Signs Date Time Temp Pulse Resp B/P (MAP) Pulse Ox O2 Delivery O2 Flow Rate FiO2 05/13/18 09:30 97 Nasal Cannula 2.0 05/13/18 08:03 68 151/78 05/13/18 05:06 97.5 20 Labs Laboratory Tests Test 05/12/18 15:10 05/12/18 15:19 05/12/18 16:14 05/12/18 20:41 Blood Gas pH 7.47 (7.35-7.46) Blood Gas PCO2 65 mmHg (35-46) Blood Gas PO2 69 mmHg (71-100) Blood Gas HCO3 47 mmol/L (21-28) Arterial Bld O2 Saturation (Calc) 94 % (92-99) FiO2 28 % White Blood Count 11.4 x10^3/uL (4.0-11.0) Red Blood Count 4.60 x10^6/uL (4.30-5.70) Hemoglobin 14.3 g/dL (13.0-17.5) Hematocrit 42.9 % (39.0-53.0) Mean Corpuscular Volume 93 fL (79-100) Mean Corpuscular Hemoglobin 31 pg (25-35) Mean Corpuscular Hemoglobin Concent 33 g/dL (31-37) Red Cell Distribution Width 13.4 % (11.5-14.5) Platelet Count 222 x10^3/uL (140-400) Neutrophils (%) (Auto) 86 % (31-73) Lymphocytes (%) (Auto) 8 % (24-48) Monocytes (%) (Auto) 6 % (0-9) Eosinophils (%) (Auto) 1 % (0-3) Basophils (%) (Auto) 0 % (0-3) Neutrophils # (Auto) 9.8 x10^3uL (1.8-7.7) Lymphocytes # (Auto) 0.9 x10^3/uL (1.0-4.8) Monocytes # (Auto) 0.6 x10^3/uL (0.0-1.1) Eosinophils # (Auto) 0.1 x10^3/uL (0.0-0.7) Basophils # (Auto) 0.0 x10^3/uL (0.0-0.2) Sodium Level 139 mmol/L (136-145) Potassium Level 3.6 mmol/L (3.5-5.1) Chloride Level 93 mmol/L (98-107) Carbon Dioxide Level 44 mmol/L (21-32) Anion Gap 2 (6-14) Blood Urea Nitrogen 39 mg/dL (8-26) Creatinine 2.2 mg/dL (0.7-1.3) Estimated GFR (Cockcroft-Gault) 28.3 BUN/Creatinine Ratio 18 (6-20) Glucose Level 203 mg/dL (70-99) Lactic Acid Level 1.8 mmol/L (0.4-2.0) Calcium Level 9.7 mg/dL (8.5-10.1) Total Bilirubin 0.6 mg/dL (0.2-1.0) Aspartate Amino Transf (AST/SGOT) 17 U/L (15-37) Alanine Aminotransferase (ALT/SGPT) 25 U/L (16-63) Alkaline Phosphatase 95 U/L (46-116) Creatine Kinase 66 U/L (39-308) Troponin I Quantitative < 0.017 ng/mL (0-0.055) MB-Xkv-X-Type Natriuretic Peptide 309 pg/mL (0-449) Total Protein 7.3 g/dL (6.4-8.2) Albumin 3.6 g/dL (3.4-5.0) Albumin/Globulin Ratio 1.0 (1.0-1.7) Urine Collection Type Void Urine Color Straw Urine Clarity Clear Urine pH 7.0 Urine Specific [place] 1.015 Urine Protein Neg (NEG-TRACE) Urine Glucose (UA) 100 mg/dL (NEG) Urine Ketones (Stick) Neg mg/dL (NEG) Urine Blood Neg (NEG) Urine Nitrite Neg (NEG) Urine Bilirubin Neg (NEG) Urine Urobilinogen Dipstick 0.2 mg/dL (0.2 mg/dL) Urine Leukocyte Esterase Neg (NEG) Urine RBC 0 /HPF (0-2) Urine WBC Rare /HPF (0-4) Urine Squamous Epithelial Cells Occ /LPF Urine Bacteria 0 /HPF (0-FEW) Glucose (Fingerstick) 330 mg/dL (70-99) Test 05/13/18 06:01 05/13/18 07:43 White Blood Count 7.8 x10^3/uL (4.0-11.0) Red Blood Count 4.14 x10^6/uL (4.30-5.70) Hemoglobin 13.2 g/dL (13.0-17.5) Hematocrit 38.3 % (39.0-53.0) Mean Corpuscular Volume 93 fL (79-100) Mean Corpuscular Hemoglobin 32 pg (25-35) Mean Corpuscular Hemoglobin Concent 34 g/dL (31-37) Red Cell Distribution Width 13.0 % (11.5-14.5) Platelet Count 203 x10^3/uL (140-400) Neutrophils (%) (Auto) 86 % (31-73) Lymphocytes (%) (Auto) 11 % (24-48) Monocytes (%) (Auto) 3 % (0-9) Eosinophils (%) (Auto) 0 % (0-3) Basophils (%) (Auto) 0 % (0-3) Neutrophils # (Auto) 6.7 x10^3uL (1.8-7.7) Lymphocytes # (Auto) 0.9 x10^3/uL (1.0-4.8) Monocytes # (Auto) 0.3 x10^3/uL (0.0-1.1) Eosinophils # (Auto) 0.0 x10^3/uL (0.0-0.7) Basophils # (Auto) 0.0 x10^3/uL (0.0-0.2) Sodium Level 139 mmol/L (136-145) Potassium Level 3.5 mmol/L (3.5-5.1) Chloride Level 93 mmol/L (98-107) Carbon Dioxide Level 43 mmol/L (21-32) Anion Gap 3 (6-14) Blood Urea Nitrogen 41 mg/dL (8-26) Creatinine 2.2 mg/dL (0.7-1.3) Estimated GFR (Cockcroft-Gault) 28.3 BUN/Creatinine Ratio 19 (6-20) Glucose Level 267 mg/dL (70-99) Calcium Level 9.5 mg/dL (8.5-10.1) Total Bilirubin 0.5 mg/dL (0.2-1.0) Aspartate Amino Transf (AST/SGOT) 13 U/L (15-37) Alanine Aminotransferase (ALT/SGPT) 21 U/L (16-63) Alkaline Phosphatase 77 U/L (46-116) Total Protein 6.4 g/dL (6.4-8.2) Albumin 3.1 g/dL (3.4-5.0) Albumin/Globulin Ratio 0.9 (1.0-1.7) Glucose (Fingerstick) 256 mg/dL (70-99) Images CXR - IMPRESSION: Consolidation in the lingula may be secondary to atelectasis or pneumonia. Follow-up imaging recommended after medical therapy to ensure resolution. Assessment/Plan 1. CHF, acute diastolic - BNP elevation not significant. CXR failed to reveal pulmonary vascular congestion. ABG suggestive of chronic compensated hypercapnic respiratory insufficiency. 2. edema - likely venous insufficiency, check duplex for DVT. suggest compression hose, avoid sodium and consider resuming diuretics (stopped last adm due to elevated Cr 2.4) 3. CKD - appears Cr ~2.2 is new baseline, monitor. need renal follow up after discharge 4. Paroxysmal atrial fibrillation - Tele monitor. Rate control and Eliquis for stroke prophylaxis. 5. PNA - recent course of abx, mgmt per PCP Mild trop elevation in Jun with COPD exacerbation. Needs outpatient MPI as outpatient as he has not completed this. Resume home medications, resume lasix , monitor renal functions. RUFUS ARGUETA APRN May 13, 2018 11:09
[2018-05-13 11:18] VITALS: BP 115/64
[2018-05-13] MEDS ORDERED: FURO-68 PO (11:57)
[2018-05-13 14:38] VITALS: BP 120/68
--- NOTE | 2018-05-13 16:34 | CARD ---
MR#: [id number] Date of Study: 05/13/2018 Ordering Physician: RUFUS ARGUETA, Referring Physician: JOHANNE MIXON, Tech: Katya Valdez APPROVED REPORT EXAM: Two-dimensional and M-mode echocardiogram with Doppler and color Doppler. Other Information Quality : FairHR: 71bpm INDICATION Congestive Heart Failure 2D DIMENSIONS Left Atrium(2D)3.8 (1.6-4.0cm)IVSd1.2 (0.7-1.1cm) Aortic Root(2D)3.2 (2.0-3.7cm)LVDd6.0 (3.9-5.9cm) LVOT Diameter2.3 (1.8-2.4cm)PWd1.6 (0.7-1.1cm) LVDs3.7 (2.5-4.0cm)FS (%) 38.6 % SV124.5 mlLVEF(%)68.0 (>50%) Aortic Valve AoV Peak Daryn.183.0cm/sAoV VTI40.9cm AO Peak GR.13.4mmHgLVOT Peak Daryn.123.9cm/s LVOT VTI 34.14cmAO Mean GR.7mmHg SUNI (VMAX)2.98bn9JNG (VTI)3.32cm2 Mitral Valve MV E Coozcosw11.3cm/sMV DECEL FFQN643cm MV A Qsazgyhp23.7cm/sE/A Ratio0.9 Pulmonary Valve PV Peak Jowmjzvq569.0cm/sPV Peak Grad.5mmHg Tricuspid Valve TR P. Azzvabar007ty/sRAP NHPIIBUQ4baMf TR Peak Gr.93jiRtRCZP69laMd Pulmonary Vein S1 Pxknyzjc14.6cm/sD2 Daxhsrhw73.6cm/s LEFT VENTRICLE The Left Ventricle is mildly dilated. There is moderate concentric left ventricular hypertrophy. The left ventricular systolic function is normal. The Ejection Fraction is 55-60%. There is normal LV seg mental wall motion. Transmitral Doppler flow pattern is Grade I-abnormal relaxation pattern. RIGHT VENTRICLE The right ventricle is normal size. There is normal right ventricular wall thickness. ATRIA The left atrium size is normal. The right atrium is borderline dilated. The interatrial septum is int act with no evidence for an atrial septal defect or patent foramen ovale as noted on 2-D or Doppler i maging. AORTIC VALVE The aortic valve is normal in structure and function. Doppler and Color Flow revealed trace aortic re gurgitation. There is no significant aortic valvular stenosis. MITRAL VALVE The mitral valve is normal in structure and function. Doppler and Color-flow revealed trace mitral re gurgitation. TRICUSPID VALVE The tricuspid valve is normal in structure and function. Doppler and Color Flow revealed trace tricus pid regurgitation. There is no tricuspid valve stenosis. PULMONIC VALVE The pulmonic valve is not well visualized. Doppler and Color Flow revealed trace pulmonic valvular re gurgitation. GREAT VESSELS The aortic root is borderline dilated. The IVC was not visualized. PERICARDIAL EFFUSION There is no evidence of significant pericardial effusion. Critical Notification Critical Value: No <Conclusion> The left ventricular systolic function is normal. The Ejection Fraction is 55-60%. There is normal LV segmental wall motion. Transmitral Doppler flow pattern is Grade I-abnormal relaxation pattern. Trace mitral regurgitation. Trace tricuspid regurgitation. There is no evidence of significant pericardial effusion. Signed by : Howie Alonso, Electronically Approved : 05/13/2018 16:33:18
[2018-05-13 20:50] VITALS: BP 108/66
--- NOTE | 2018-05-13 20:59 | RAD ---
Bilateral lower extremity venous Doppler dated 05/13/2018. No comparison available. Clinical data indication: Edema for one year. FINDINGS: Grayscale, color-flow and spectral waveform analysis performed to include the deep venous system of both lower extremity. Normal compressibility, phasicity and augmentation of flow throughout. No filling defects are seen. IMPRESSION: No evidence of lower extremity deep vein thrombosis. Electronically signed by: Drew Washington MD (05/13/2018 8:56 PM) [facility]
[2018-05-13] MEDS: ATORVASTATIN CALCIUM 20 MG TABLET PO SCH (21:15)
[2018-05-13] MEDS: ACETAMINOPHEN 325 MG TABLET PO SCH (21:15)
[2018-05-13 23:30] VITALS: BP 148/71
--- NOTE | 2018-05-14 01:29 | PN ---
DATE: 05/13/2018 SUBJECTIVE: The patient is resting, slightly propped up in bed, in no apparent distress. On questioning him, he denied any complaint, in particular denied any chest pain, shortness of breath, cough or phlegm. He did complain of hoarseness of voice. He was seen by the print developer and apparently an echocardiogram was ordered as well as venous Doppler ultrasound, the result of which is still pending at the time of this dictation. PHYSICAL EXAMINATION: GENERAL: When I examined him, he looked well and was clearly in no apparent respiratory distress, pale, but no pallor, jaundice, cyanosis, or thyromegaly. No jugular venous distension. Marked bilateral lower limb edema. VITAL SIGNS: His heart rate was 72, blood pressure was 120/68, temperature was 97.4, respiratory rate 20, and oxygen saturation was 98% on 2 liters of oxygen. HEAD, EYES, EARS, NOSE AND THROAT: Showed normocephalic, atraumatic. NECK: Supple. HEART: Showed normal first and second heart sounds with no gallop, rub or murmur. CHEST: Clear to auscultation. No crepitation or rhonchi. ABDOMEN: Distended, soft, and nontender. NEUROLOGIC: He is awake, alert, and responding appropriately. Cranial nerves intact. He moves extremities without difficulty. He does ambulate with a walker. His intake over the last 24 hours was 850, output was 350. LABORATORY DATA: His lab work as of this morning showed a serum sodium of 139, potassium 3.5, chloride 93, bicarbonate 43, anion gap of 3, BUN 41, creatinine 2.2, estimated GFR was 28 mL per minute. His glucose was 267 and calcium was 9.5. Total bilirubin, AST, ALT, alkaline phosphatase were normal. Total protein 6.4, albumin 3.1. His TSH was normal at 0.425. His white cell count was 7800, hemoglobin 13, hematocrit 38, MCV 93, and a platelet count of 203,000 with normal manual differential. 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 PLAN: The plan is to continue with his current plan of management. He did receive 2 injections of IV Lasix as well as metolazone. We will continue with his steroids, Plavix. We will continue to monitor his insulin. JOHANNE MIXON MD DR: IAN/jaida JOB#: [id number] / [id number]
[2018-05-14] MEDS: IPRATRPIUM/ALBUTEROL 0.5/2.5MG 3 ML NEBU. NEB SCH ×2 (05:24→11:06)
[2018-05-14 05:40] VITALS: BP 127/63
[2018-05-14 05:55] LABS: BASO % 0 % (0-3); EOS % 0 % (0-3); HEMATOCRIT 36.7 % (39.0-53.0); HEMOGLOBIN 12.4 g/dL (13.0-17.5); LYMPH # 1.5 x10^3/uL (1.0-4.8); LYMPH % 13 % (24-48); MEAN CORPUSCULAR HEMOGLOBIN 32 pg (25-35); MEAN CORPUSCULAR HGB CONC 34 g/dL (31-37); MEAN CORPUSCULAR VOLUME 93 fL (79-100); MONO # 1.1 x10^3/uL (0.0-1.1); MONO % 10 % (0-9); NEUT # 8.8 x10^3uL (1.8-7.7); NEUT % 77 % (31-73); PLATELET COUNT 202 x10^3/uL (140-400); RED BLOOD COUNT 3.94 x10^6/uL (4.30-5.70); WHITE BLOOD COUNT 11.5 x10^3/uL (4.0-11.0)
[2018-05-14 06:02] LABS: CALCIUM 9.2 mg/dL (8.5-10.1); GFR 31.6; POTASSIUM 3.5 mmol/L (3.5-5.1)
[2018-05-14] MEDS: FLUTICASONE 50MCG/NASAL SPRAY 16GM BOTTLE. NS SCH (08:27)
[2018-05-14] MEDS: POLYETHYLENE GLYCOL 3350 17 GM PACKET. PO SCH (08:27)
[2018-05-14] MEDS: DOCUSATE SODIUM 100 MG CAPSULE PO SCH (08:28)
[2018-05-14] MEDS: APIXABAN 2.5 MG TABLET PO SCH (08:28)
[2018-05-14] MEDS: POTASSIUM CHLORIDE 20 MEQ TABLET.ER. PO SCH (08:28)
[2018-05-14] MEDS: CLOPIDOGREL BISULFATE 75 MG TABLET PO SCH (08:29)
[2018-05-14] MEDS: LACTOBACILLUS RHAMNOSUS GG 1 CAPSULE. PO SCH (08:30)
[2018-05-14] MEDS: MULTIVITAMIN with MINERAL TABLET. PO SCH (08:30)
[2018-05-14] MEDS: FAMOTIDINE 20 MG TABLET PO SCH (08:30)
[2018-05-14] MEDS: predniSONE 10 MG TABLET PO SCH (08:30)
[2018-05-14] MEDS: clonazePAM 0.5 MG TABLET PO SCH (08:36)
[2018-05-14] MEDS: METOPROLOL TART IMMED RELEASE 50 MG TABLET PO SCH (08:37)
[2018-05-14] MEDS: INSULIN LISPRO 300 UNITS/3 ML INSULN.PEN. SQ SCH (08:51)
[2018-05-14 08:53] VITALS: BP 127/63
[2018-05-14] MEDS ORDERED: FUROSEMIDE 40 MG TABLET PO SCH (09:00)
[2018-05-14] MEDS ORDERED: MUPI1OIN NS (10:33)
--- NOTE | 2018-05-14 10:33 | PDOC ---
PROGRESS NOTES Diagnosis Problem Problems Medical Problems: (1) CO2 retention Status: Acute (2) COPD (chronic obstructive pulmonary disease) Status: Acute (3) Lower extremity edema Status: Acute (4) Pneumonia Status: Acute (5) Renal insufficiency Status: Acute (6) Uncontrolled diabetes mellitus Status: Acute Assessment Problems Medical Problems: (1) CO2 retention Status: Acute (2) COPD (chronic obstructive pulmonary disease) Status: Acute (3) Lower extremity edema Status: Acute (4) Pneumonia Status: Acute (5) Renal insufficiency Status: Acute (6) Uncontrolled diabetes mellitus Status: Acute 1. CHF, acute diastolic - BNP elevation not significant. CXR failed to reveal pulmonary vascular congestion. ABG suggestive of chronic compensated hypercapnic respiratory insufficiency. 2. edema - likely venous insufficiency, check duplex for DVT. suggest compression hose, avoid sodium and consider resuming diuretics (stopped last adm due to elevated Cr 2.4) 3. CKD - appears Cr ~2.2 is new baseline, monitor. need renal follow up after discharge 4. Paroxysmal atrial fibrillation - Tele monitor. Rate control and Eliquis for stroke prophylaxis. 5. PNA - recent course of abx, mgmt per PCP Echo reveals normal LV EF with moderate LVH and grade 1 diastolic dysfunction. Continue current medical therapy. follow up outpatient. Subjective feeling "fine", "ready to go", no chest pain, breathing at baseline, swelling at baseline, no palpitations, lightheadedness or syncope. Objective Vital Signs Date Time Temp Pulse Resp B/P (MAP) Pulse Ox O2 Delivery O2 Flow Rate FiO2 05/14/18 08:53 72 127/63 05/14/18 08:00 Nasal Cannula 2.0 05/14/18 05:40 97.4 20 96 Intake and Output 05/14/18 07:00 Intake Total 1540 ml Balance 1540 ml Intake Oral 1540 ml # Voids 4 # Bowel Movements 1 Abdomen: Normal bowel sounds, Soft, No tenderness Heart: Normal S1, Normal S2, Other (no significant murmurs, no gallops, clicks or rubs) Extremities: No cyanosis, Other (+2 edema at baseline) General: Alert, Oriented X3, Cooperative, No acute distress HEENT: Atraumatic, EOMI Lungs: Other (crackles left base otherwise clear) Neuro: Normal speech, Strength at 5/5 X4 ext Psych/Mental Status: Mental status NL, Mood NL Review of Relevant I have reviewed the following items bhupinder (where applicable) has been applied. Labs Laboratory Tests Test 05/12/18 15:10 05/12/18 15:19 05/12/18 16:14 05/12/18 17:21 Blood Gas pH 7.47 (7.35-7.46) Blood Gas PCO2 65 mmHg (35-46) Blood Gas PO2 69 mmHg (71-100) Blood Gas HCO3 47 mmol/L (21-28) Arterial Bld O2 Saturation (Calc) 94 % (92-99) FiO2 28 % White Blood Count 11.4 x10^3/uL (4.0-11.0) Red Blood Count 4.60 x10^6/uL (4.30-5.70) Hemoglobin 14.3 g/dL (13.0-17.5) Hematocrit 42.9 % (39.0-53.0) Mean Corpuscular Volume 93 fL (79-100) Mean Corpuscular Hemoglobin 31 pg (25-35) Mean Corpuscular Hemoglobin Concent 33 g/dL (31-37) Red Cell Distribution Width 13.4 % (11.5-14.5) Platelet Count 222 x10^3/uL (140-400) Neutrophils (%) (Auto) 86 % (31-73) Lymphocytes (%) (Auto) 8 % (24-48) Monocytes (%) (Auto) 6 % (0-9) Eosinophils (%) (Auto) 1 % (0-3) Basophils (%) (Auto) 0 % (0-3) Neutrophils # (Auto) 9.8 x10^3uL (1.8-7.7) Lymphocytes # (Auto) 0.9 x10^3/uL (1.0-4.8) Monocytes # (Auto) 0.6 x10^3/uL (0.0-1.1) Eosinophils # (Auto) 0.1 x10^3/uL (0.0-0.7) Basophils # (Auto) 0.0 x10^3/uL (0.0-0.2) Sodium Level 139 mmol/L (136-145) Potassium Level 3.6 mmol/L (3.5-5.1) Chloride Level 93 mmol/L (98-107) Carbon Dioxide Level 44 mmol/L (21-32) Anion Gap 2 (6-14) Blood Urea Nitrogen 39 mg/dL (8-26) Creatinine 2.2 mg/dL (0.7-1.3) Estimated GFR (Cockcroft-Gault) 28.3 BUN/Creatinine Ratio 18 (6-20) Glucose Level 203 mg/dL (70-99) Lactic Acid Level 1.8 mmol/L (0.4-2.0) Calcium Level 9.7 mg/dL (8.5-10.1) Total Bilirubin 0.6 mg/dL (0.2-1.0) Aspartate Amino Transf (AST/SGOT) 17 U/L (15-37) Alanine Aminotransferase (ALT/SGPT) 25 U/L (16-63) Alkaline Phosphatase 95 U/L (46-116) Creatine Kinase 66 U/L (39-308) Troponin I Quantitative < 0.017 ng/mL (0-0.055) VM-Bpj-C-Type Natriuretic Peptide 309 pg/mL (0-449) Total Protein 7.3 g/dL (6.4-8.2) Albumin 3.6 g/dL (3.4-5.0) Albumin/Globulin Ratio 1.0 (1.0-1.7) Urine Collection Type Void Urine Color Straw Urine Clarity Clear Urine pH 7.0 Urine Specific [place] 1.015 Urine Protein Neg (NEG-TRACE) Urine Glucose (UA) 100 mg/dL (NEG) Urine Ketones (Stick) Neg mg/dL (NEG) Urine Blood Neg (NEG) Urine Nitrite Neg (NEG) Urine Bilirubin Neg (NEG) Urine Urobilinogen Dipstick 0.2 mg/dL (0.2 mg/dL) Urine Leukocyte Esterase Neg (NEG) Urine RBC 0 /HPF (0-2) Urine WBC Rare /HPF (0-4) Urine Squamous Epithelial Cells Occ /LPF Urine Bacteria 0 /HPF (0-FEW) Nasal Screen MRSA (PCR) Positive (Negative) Test 05/12/18 20:41 05/13/18 06:01 05/13/18 07:43 05/13/18 11:28 Glucose (Fingerstick) 330 mg/dL (70-99) 256 mg/dL (70-99) 303 mg/dL (70-99) White Blood Count 7.8 x10^3/uL (4.0-11.0) Red Blood Count 4.14 x10^6/uL (4.30-5.70) Hemoglobin 13.2 g/dL (13.0-17.5) Hematocrit 38.3 % (39.0-53.0) Mean Corpuscular Volume 93 fL (79-100) Mean Corpuscular Hemoglobin 32 pg (25-35) Mean Corpuscular Hemoglobin Concent 34 g/dL (31-37) Red Cell Distribution Width 13.0 % (11.5-14.5) Platelet Count 203 x10^3/uL (140-400) Neutrophils (%) (Auto) 86 % (31-73) Lymphocytes (%) (Auto) 11 % (24-48) Monocytes (%) (Auto) 3 % (0-9) Eosinophils (%) (Auto) 0 % (0-3) Basophils (%) (Auto) 0 % (0-3) Neutrophils # (Auto) 6.7 x10^3uL (1.8-7.7) Lymphocytes # (Auto) 0.9 x10^3/uL (1.0-4.8) Monocytes # (Auto) 0.3 x10^3/uL (0.0-1.1) Eosinophils # (Auto) 0.0 x10^3/uL (0.0-0.7) Basophils # (Auto) 0.0 x10^3/uL (0.0-0.2) Sodium Level 139 mmol/L (136-145) Potassium Level 3.5 mmol/L (3.5-5.1) Chloride Level 93 mmol/L (98-107) Carbon Dioxide Level 43 mmol/L (21-32) Anion Gap 3 (6-14) Blood Urea Nitrogen 41 mg/dL (8-26) Creatinine 2.2 mg/dL (0.7-1.3) Estimated GFR (Cockcroft-Gault) 28.3 BUN/Creatinine Ratio 19 (6-20) Glucose Level 267 mg/dL (70-99) Hemoglobin A1c 8.0 % (4.8-5.6) Calcium Level 9.5 mg/dL (8.5-10.1) Total Bilirubin 0.5 mg/dL (0.2-1.0) Aspartate Amino Transf (AST/SGOT) 13 U/L (15-37) Alanine Aminotransferase (ALT/SGPT) 21 U/L (16-63) Alkaline Phosphatase 77 U/L (46-116) Total Protein 6.4 g/dL (6.4-8.2) Albumin 3.1 g/dL (3.4-5.0) Albumin/Globulin Ratio 0.9 (1.0-1.7) Thyroid Stimulating Hormone (TSH) 0.425 uIU/mL (0.358-3.740) Test 05/13/18 16:31 05/13/18 21:12 05/14/18 05:38 05/14/18 08:00 Glucose (Fingerstick) 262 mg/dL (70-99) 282 mg/dL (70-99) 164 mg/dL (70-99) White Blood Count 11.5 x10^3/uL (4.0-11.0) Red Blood Count 3.94 x10^6/uL (4.30-5.70) Hemoglobin 12.4 g/dL (13.0-17.5) Hematocrit 36.7 % (39.0-53.0) Mean Corpuscular Volume 93 fL (79-100) Mean Corpuscular Hemoglobin 32 pg (25-35) Mean Corpuscular Hemoglobin Concent 34 g/dL (31-37) Red Cell Distribution Width 13.0 % (11.5-14.5) Platelet Count 202 x10^3/uL (140-400) Neutrophils (%) (Auto) 77 % (31-73) Lymphocytes (%) (Auto) 13 % (24-48) Monocytes (%) (Auto) 10 % (0-9) Eosinophils (%) (Auto) 0 % (0-3) Basophils (%) (Auto) 0 % (0-3) Neutrophils # (Auto) 8.8 x10^3uL (1.8-7.7) Lymphocytes # (Auto) 1.5 x10^3/uL (1.0-4.8) Monocytes # (Auto) 1.1 x10^3/uL (0.0-1.1) Eosinophils # (Auto) 0.0 x10^3/uL (0.0-0.7) Basophils # (Auto) 0.0 x10^3/uL (0.0-0.2) Sodium Level 140 mmol/L (136-145) Potassium Level 3.5 mmol/L (3.5-5.1) Chloride Level 96 mmol/L (98-107) Carbon Dioxide Level 44 mmol/L (21-32) Anion Gap 0 (6-14) Blood Urea Nitrogen 47 mg/dL (8-26) Creatinine 2.0 mg/dL (0.7-1.3) Estimated GFR (Cockcroft-Gault) 31.6 Glucose Level 188 mg/dL (70-99) Calcium Level 9.2 mg/dL (8.5-10.1) Microbiology 05/12/18 Blood Culture - Preliminary, Resulted NO GROWTH AFTER 1 DAY... Medications Current Medications Albuterol/ Ipratropium (Duoneb) 3 ml 1X ONCE NEB Last administered on at 15:38; Start 05/12/18 at 15:15; Stop 05/12/18 at 15:24; Status DC Methylprednisolone Sodium Succinate (SOLU-Medrol 125MG VIAL) 125 mg 1X ONCE IM ; Start 05/12/18 at 15:30; Stop 05/12/18 at 15:35; Status DC Methylprednisolone Sodium Succinate (SOLU-Medrol 125MG VIAL) 125 mg 1X ONCE IV Last administered on 05/12/18at 15:37; Start 05/12/18 at 15:45; Stop at 16:03; Status DC Furosemide (Lasix) 40 mg 1X ONCE IVP Last administered on 05/12/18at 16:36; Start 05/12/18 at 16:15; Stop 05/12/18 at 16:16; Status DC Ceftriaxone Sodium 1 gm/ Sodium Chloride 50 ml @ 100 mls/hr 1X ONCE IV Last administered on 05/12/18at 16:36; Start 05/12/18 at 16:15; Stop 05/12/18 at 16 :44; Status DC Sodium Chloride 50 ml @ As Directed STK-MED ONCE .ROUTE ; Start 05/12/18 at 16: 31; Stop 05/12/18 at 16:32; Status DC Ceftriaxone Sodium (Rocephin) 1 gm STK-MED ONCE IV ; Start 05/12/18 at 16:31; Stop 05/12/18 at 16:32; Status DC Insulin Human Lispro (HumaLOG) 0-5 UNITS TIDWMEALS SQ ; Start 05/13/18 at 08:00 ; Stop 05/13/18 at 08:00; Status DC Dextrose 12.5 gm PRN Q15MIN PRN IV SEE COMMENTS; Start 05/12/18 at 18:00 Acetaminophen (Tylenol) 325 mg QHS PO Last administered on 05/13/18 21:15; Start 05/12/18 at 21:00 Apixaban (Eliquis) 2.5 mg BID PO Last administered on 05/14/18 08:28; Start 05/12/18 at 21:00 Atorvastatin Calcium (Lipitor) 20 mg QHS PO Last administered on 05/13/18 21: 15; Start 05/12/18 at 21:00 Bisacodyl (Dulcolax Tab) 5 mg PRN DAILY PRN PO CONSTIPATION; Start 05/12/18 at 18:15 Clonazepam (KlonoPIN) 0.5 mg BID PO Last administered on 05/14/18at 08:36; Start 05/12/18 at 21:00 Clopidogrel Bisulfate (Plavix) 75 mg DAILY PO Last administered on 05/14/18at 08:29; Start 05/13/18 at 09:00 Guaifenesin (Guaifenesin) 200 mg PRN BID PRN PO COUGH; Start 05/12/18 at 18:15 Albuterol/ Ipratropium (Duoneb) 3 ml RTQID NEB Last administered on 05/14/18at 05:24; Start 05/12/18 at 20:00 Lactobacillus Rhamnosus (Culturelle) 1 cap BID PO Last administered on 08:30; Start 05/12/18 at 21:00 Prednisone (Prednisone) 10 mg DAILY PO Last administered on 05/14/18 08:30; Start 05/13/18 at 09:00 Diltiazem HCl (Cardizem 24hr Cd) 180 mg DAILY PO Last administered on 08:53; Start 05/13/18 at 09:00 Docusate Sodium (Colace) 100 mg BID PO Last administered on 05/14/18 08:28; Start 05/12/18 at 21:00 Famotidine (Pepcid) 20 mg BID PO Last administered on 05/14/18 08:30; Start 05/12/18 at 21:00 Fluticasone Propionate (Flonase) 2 spray DAILY NS Last administered on 08:27; Start 05/13/18 at 09:00 Non-Formulary Medication (Ipratropium Thornton (Atrovent Hfa)) 2 puff QID PRN IH SHORTNESS OF BREATH; Start 05/12/18 at 18:15; Status UNV Metolazone (Zaroxolyn) 2.5 mg 3X/WEEK PO Last administered on 05/13/18 08:03 ; Start 05/13/18 at 09:00 Metoprolol Tartrate (Lopressor) 50 mg BID PO Last administered on 05/14/18 08 :37; Start 05/12/18 at 21:00 Multivitamins/ Calcium (Thera-M Plus) 1 tab DAILY PO Last administered on 05/14 08:30; Start 05/13/18 at 09:00 Polyethylene Glycol (miraLAX) 17 gm DAILY PO Last administered on 05/14/18 08 :27; Start 05/13/18 at 09:00 Potassium Chloride (Klor-Con) 20 meq BID PO Last administered on 05/14/18 08: 28; Start 05/12/18 at 21:00 Non-Formulary Medication (Tiotropium Thornton (Spiriva)) 1 cap DAILY IH ; Start 05/13/18 at 09:00; Status UNV Non-Formulary Medication (Tiotropium Thornton (Spiriva)) 1 cap QHS IH ; Start at 21:00; Status UNV Ipratropium Thornton (Atrovent) 0.5 mg PRN QID PRN NEB SHORTNESS OF BREATH; Start 05/12/18 at 19:00 Insulin Human Lispro (HumaLOG) 0-5 UNITS TIDWMEALHC SQ Last administered on 08:51; Start 05/12/18 at 21:00 Furosemide (Lasix) 60 mg DAILY PO Last administered on 05/14/18 08:29; Start 05/14/18 at 09:00 Active Scripts Active Atorvastatin Calcium 20 Mg Tablet 20 Mg PO QHS Ondansetron Odt (Ondansetron) 4 Mg Tab.rapdis 1 Tab PO PRN Q8HRS PRN Tylenol (Acetaminophen) 325 Mg Tablet 650 Mg PO PRN PRN Prednisone 10 Mg Tablet 10 Mg PO DAILY 30 Days Guaifenesin 200 Mg Tablet 200 Mg PO BID PRN 30 Days Culturelle (Lactobacillus Rhamnosus Gg) 1 Each Cap.sprink 1 Cap PO BID 60 Days Reported Lasix (Furosemide) 40 Mg Tablet 1.5 Tab PO DAILY K-Tab ER (Potassium Chloride) 20 Meq Tablet.er 20 Meq PO BID Spiriva (Tiotropium Thornton) 18 Mcg Cap.w.dev 1 Cap IH DAILY Bisacodyl 5 Mg Tablet.dr 5 Mg PO PRN DAILY PRN Metolazone 2.5 Mg Tablet 2.5 Mg PO 3X/WEEK Famotidine 20 Mg Tablet 1 Tab PO BID Multiple Vitamin (Multivitamin With Minerals) 1 Each Tablet 1 Each PO DAILY Cartia Xt (Diltiazem Hcl) 180 Mg Cap.er.24h 180 Mg PO DAILY Eliquis (Apixaban) 2.5 Mg Tablet 2.5 Mg PO BID Flonase Allergy Relief (Fluticasone Propionate) 9.9 Ml [place].susp 2 Sprays NS DAILY Spiriva (Tiotropium Thornton) 18 Mcg Cap.w.dev 1 Cap IH QHS Tylenol (Acetaminophen) 325 Mg Tablet 1 Tab PO QHS Miralax (Polyethylene Glycol 3350) 17 Gm Powd.pack 1 Packet PO DAILY Duoneb 0.5-3(2.5) Mg/3 Ml (Albuterol/Ipratropium) 3 Ml Ampul.neb 3 Ml NEB TID Colace (Docusate Sodium) 100 Mg Capsule 1 Cap PO BID Plavix (Clopidogrel Bisulfate) 75 Mg Tablet 1 Tab PO DAILY Metoprolol Tartrate 50 Mg Tablet 1 Tab PO BID Atrovent Hfa (Ipratropium Thornton) 12.9 Gm Hfa.aer.ad 2 Puff IH QID PRN Clonazepam 0.5 Mg Tablet 1 Tab PO BID Vitals/I & O Vital Sign - Last 24 Hours 05/13/18 05/13/18 05/13/18 05/13/18 11:18 14:38 15:42 19:25 Temp 97.6 97.4 Pulse 65 72 Resp 20 20 B/P (MAP) 115/64 (81) 120/68 (85) Pulse Ox 94 98 97 O2 Delivery Nasal Cannula Nasal Cannula Nasal Cannula Nasal Cannula O2 Flow Rate 2.0 2.0 2.0 2.0 05/13/18 05/13/18 05/13/18 05/13/18 20:34 20:50 21:15 23:30 Temp 97.8 97.4 Pulse 82 88 66 Resp 20 18 B/P (MAP) 108/66 (80) 108/66 148/71 (96) Pulse Ox 96 96 100 O2 Delivery Nasal Cannula Nasal Cannula Nasal Cannula O2 Flow Rate 2.0 2.0 2.0 05/14/18 05/14/18 05/14/18 05/14/18 05:25 05:40 08:00 08:36 Temp 97.4 Pulse 57 72 Resp 20 B/P (MAP) 127/63 (84) Pulse Ox 96 96 O2 Delivery Nasal Cannula Nasal Cannula Nasal Cannula O2 Flow Rate 2.0 2.0 2.0 05/14/18 05/14/18 08:37 08:53 Pulse 72 72 B/P (MAP) 127/63 127/63 Intake and Output 05/13/18 05/13/18 05/14/18 15:00 23:00 07:00 Intake Total 600 ml 590 ml 350 ml Balance 600 ml 590 ml 350 ml RUFUS [employer]GU[employer] May 14, 2018 10:33
--- NOTE | 2018-05-14 12:29 | NUR ---
NURSING NOTE DISCHARGE PT DISCHARGED TO [facility]ELCHA[facility] AND ACCOMPANIED BY DAUGHTER AT 1230. PT IS DISCHARGED WITH HOME HEALTH. WRITTEN AND VERBAL INSTRUCTIONS GIVEN TO PT. REPORT CALLED TO SHAHEEN BETH. NO COMPLICATIONS. TRISTA SANCHEZ
--- NOTE | 2018-05-14 12:52 | DS ---
DATE OF DISCHARGE: 05/14/2018 HOSPITAL COURSE: The patient is an 87-year-old male patient, a resident at [facility], who was noted his lab work showed that his bicarbonate was high. He was also complaining of weakness, tiredness, and I was concerned that he might be retaining carbon dioxide, something obviously can do blood gases in the assisted living and therefore, he was brought to the Emergency Room, he was evaluated. Surprisingly, his blood gases were actually showed that he has compensated chronic hypoxic hypercapnic respiratory failure. His pH was 7.47. His pCO2 was 65, pO2 was 69, bicarbonate was 47 and oxygen saturation was 94% on FiO2 28%. He has marked bilateral lower extremity edema. We did investigate this further. His lab work showed that his BNP was only 309. His echocardiogram showed that he has normal left ventricular systolic function with ejection fraction of 55-60%. He has no evidence of any pulmonary hypertension and we switched him back to his usual Lasix 60 mg daily. He has venous Doppler ultrasound of both lower extremities, which showed no evidence of any deep vein thrombosis and the patient seems to be stable and a decision was made to discharge him back to [facility] on home health to continue with physical and occupational therapy. When I examined him today, he was sitting comfortably in his chair, in no apparent respiratory distress. On questioning him, he said that he is just sleepy and tired, but denied any other complaints. In particular, he has cough, which is mostly dry. Denied any chest pain or shortness of breath. Denied any chills, rigors, or fever. PHYSICAL EXAMINATION: GENERAL: When I examined him, he was definitely somewhat plethoric, not jaundiced or cyanosis. No lymphadenopathy, no thyromegaly. No jugular venous distention, but moderate bilateral lower limb edema. VITAL SIGNS: His heart rate was 72, blood pressure was 127/63, temperature was 97.4, respiratory rate was 20, and oxygen saturation was 99% on 2 liters of oxygen by nasal cannula. HEAD, EYES, EARS, NOSE AND THROAT: Showed normocephalic and atraumatic. NECK: Supple. HEART: Showed normal first and second heart sounds with no gallop, rub or murmur. CHEST: Clear to auscultation. No crepitation and few mild bilateral basal crepitation. I could not appreciate any rhonchi. ABDOMEN: Distended, soft, nontender. NEUROLOGIC: He was awake, alert, responding appropriately. All cranial nerves intact. He is able to ambulate with a walker. His intake and output are incompletely recorded. LABORATORY DATA: His lab work this morning showed a white cell count of 11,500, hemoglobin 12.4, hematocrit 36, MCV 93, and platelet count of 202,000. His chemistry showed a serum sodium of 140, potassium 3.5, chloride 96, bicarbonate 44, anion gap of 0, BUN 47, creatinine 2, estimated GFR was 31.6 mL per minute, his glucose 188, calcium was 9.2. Urinalysis was unremarkable. His nasal screen for MRSA by PCR was positive. DISCHARGE MEDICATIONS: He was discharged back to assisted living on home health with PT, OT and to continue on acetaminophen 650 mg every 4 hours as needed, apixaban 2.5 mg twice a day, atorvastatin calcium 20 mg at bedtime, bisacodyl 5 mg daily, clonazepam 0.5 mg 1 tablet twice a day, Plavix 75 mg once a day, diltiazem 180 mg daily, Colace 100 mg twice a day, famotidine 20 mg twice a day, Flonase 1 spray to each nostril twice a day, furosemide 60 mg once a day, guaifenesin 200 mg twice a day, ipratropium bromide, albuterol sulfate in the form of DuoNeb 0.5-2.5 mg 3 mL by nebulizer 3 times a day, lactobacillus rhamnosus 1 capsule twice a day, metolazone 2.5 mg 3 times a week, metoprolol tartrate 50 mg twice a day, multivitamin with mineral 1 tablet once a day, ondansetron 4 mg every 8 hours as needed for nausea and vomiting, polyethylene glycol 17 grams daily p.r.n. for constipation, potassium chloride 20 mEq twice a day, prednisone 10 mg once a day and tiotropium bromide for Spiriva HandiHaler 1 inhalation once a day. FINAL DISCHARGE DIAGNOSES: Chronic hypoxic hypercapnic respiratory failure, well compensated, chronic obstructive pulmonary disease, morbid obesity, bilateral lower extremity lymphedema, chronic renal failure, type 2 diabetes. The patient will be discharged to [facility] to continue all his current medications. He will be discharged with home health, continue physical and occupational therapy. I will add also Bactroban ointment applied topically to both nares twice a day for 10 days. JOHANNE MIXON MD DR: Eduar JOB#: [id number] / [id number]
== END 2018-05-14 12:30 | disposition home health service (06) | DRG 291 ==
LOC: ER 15:04 → 1 SOUTH 16:04
PROVIDERS: ADMIT Internal Medicine; ATTEND Internal Medicine
DX: I13.0 Hypertensive heart and chronic kidney disease with heart failure and stage 1 through stage 4 chronic kidney disease, or unspecified chronic kidney disease (principal); I50.31 Acute diastolic (congestive) heart failure; J18.9 Pneumonia, unspecified organism; J44.1 Chronic obstructive pulmonary disease with (acute) exacerbation; J44.0 Chronic obstructive pulmonary disease with (acute) lower respiratory infection; J96.12 Chronic respiratory failure with hypercapnia; E87.2 Acidosis; J96.11 Chronic respiratory failure with hypoxia; I69.354 Hemiplegia and hemiparesis following cerebral infarction affecting left non-dominant side; F41.9 Anxiety disorder, unspecified; E11.22 Type 2 diabetes mellitus with diabetic chronic kidney disease; E11.51 Type 2 diabetes mellitus with diabetic peripheral angiopathy without gangrene; I50.9 Heart failure, unspecified; I48.0 Paroxysmal atrial fibrillation; N18.9 Chronic kidney disease, unspecified; E78.5 Hyperlipidemia, unspecified; E66.01 Morbid (severe) obesity due to excess calories; E11.65 Type 2 diabetes mellitus with hyperglycemia; I89.0 Lymphedema, not elsewhere classified; Z79.899 Other long term (current) drug therapy; Z87.891 Personal history of nicotine dependence; Z95.820 Peripheral vascular angioplasty status with implants and grafts
CPT/HCPCS: 36415; 71045; 80048; 80053; 81001; 82550; 82803; 82947; 83036; 83605; 83880; 84443; 84484; 85025; 87040; 87641; 93005; 93306; 93970; 94640; 96365; 96375; J0696; J1815; J1940; J2930; J7512; J7620; 99285-25

== ENCOUNTER 2018-08-19 17:19 | Inpatient (IN) | payer MEDICARE, OTHER ==
[~2018-08-19] VITALS: Ht 172.7 cm; Wt 122.0 kg
[~2018-08-19 17:19] MED LIST changes: +BISA5TAB4 PO; +FAMO20TA5 PO; +METO2.5T PO; +MULT-460 PO; +MUPI1OIN NS; +POTA20TA84 PO
[2018-08-19] MEDS ORDERED: methylPREDNISolone SOD SUCC PF 125 MG/2 ML VIAL. IV ONE (17:30)
[2018-08-19] MEDS ORDERED: IPRATRPIUM/ALBUTEROL 0.5/2.5MG 3 ML NEBU. NEB ONE (17:30)
--- NOTE | 2018-08-19 17:47 | PHYS DOC ---
Past History Past Medical History: A-Fib, Anxiety, CHF, COPD, High Cholesterol, Hypertension (HEENA LUKE MD) Past Surgical History: Other (HEENA LUKE MD) Smoking: Non-smoker Alcohol Use: None Drug Use: None (HEENA LUKE MD) Adult General Chief Complaint Chief Complaint: abnormal labs HPI HPI Patient is a 87 year old male who presents with normal CO2. Patient is a resident of assisted living home and has history of CHF and COPD on 4 L of home oxygen. Patient had routine labs today with PCO2 of 46 and his primary care physician Dr Winchester recommended to come to ER for ABG and possible BiPAP. Patient denies shortness of breath or chest pain. Patient's daughter who brought him to the hospitalist denies change of his mental condition. (HEENA LUKE MD) Review of Systems Review of Systems Constitutional: Denies fever or chills [] Eyes: Denies change in visual acuity, redness, or eye pain [] HENT: Denies nasal congestion or sore throat [] Respiratory: Denies cough or shortness of breath [] Cardiovascular: No additional information not addressed in HPI [] GI: Denies abdominal pain, nausea, vomiting, bloody stools or diarrhea [] : Denies dysuria or hematuria [] Musculoskeletal: Denies back pain or joint pain [] Integument: Denies rash or skin lesions [] Neurologic: Denies headache, focal weakness or sensory changes [] Endocrine: Denies polyuria or polydipsia [] All other systems were reviewed and found to be within normal limits, except as documented in this note. (HEENA LUKE MD) Current Medications Current Medications Current Medications Medications (Trade) Dose Ordered Sig/Emeka Start Time Stop Time Status Last Admin Dose Admin Albuterol/ Ipratropium (Duoneb) 3 ml 1X ONCE 08/19/18 17:30 08/19/18 17:31 DC Methylprednisolone Sodium Succinate (SOLU-Medrol 125MG VIAL) 125 mg 1X ONCE 08/19/18 17:30 2 17:31 DC (HEENA LUKE MD) Allergies Allergies Allergies Coded Allergies Type Severity Reaction Last Updated Verified Penicillins Allergy Intermediate 07/05/17 No Sulfa (Sulfonamide Antibiotics) Allergy Intermediate 07/05/17 No ibuprofen Allergy Intermediate 07/05/17 No I S O L A T I O N *CONTACT* Allergy Unknown 05/14/18 Yes (HEENA LUKE MD) Physical Exam Physical Exam Constitutional: Well developed, well nourished, no acute distress, non-toxic appearance. [] HENT: Normocephalic, atraumatic Eyes: PERRLA, EOMI, conjunctiva normal, no discharge. [] Neck: Normal range of motion, no tenderness, supple, no stridor. [] Cardiovascular:Heart rate regular rhythm, no murmur [] Lungs & Thorax: Bilateral basilar rales. Abdomen: Bowel sounds normal, soft, no tenderness, no masses, no pulsatile masses. [] Skin: Warm, dry, no erythema, no rash. [] Back: No tenderness, no CVA tenderness. [] Extremities: No tenderness, no cyanosis, no clubbing, ROM intact, 3+ bilateral lower extremity edema[] Neurologic: Alert and oriented X 3, normal motor function, normal sensory function, no focal deficits noted. [] Psychologic: Affect normal, judgement normal, mood normal. [] (HEENA LUKE MD) EKG EKG [] (HEENA LUKE MD) EKG My interpretation EKG shows a sinus rhythm at 67 bpm. Does have a right bundle- branch block. Similar to prior monitoring EKGs on file. (MICHAEL BRADY MD) Radiology/Procedures Radiology/Procedures [] (HEENA LUKE MD) Radiology/Procedures My interpretation of chest x-ray shows cardiomegaly. Does have a right middle lobe fissure infiltrate or fluid versus scarring. Does have some basilar atelectasis and patchy nonspecific areas of atelectasis/infiltrate. Does have degenerative joint changes. Similar to prior x-rays on file. (MICHAEL BRADY MD) Course & Med Decision Making Course & Med Decision Making Pertinent Labs and Imaging studies are pending. Evaluation of patient in ER showed 87-year-old male patient brought in because of elevation of CO2 at routine labs. Labs and chest x-ray and EKG is pending. Patient care transferred to Dr. Carrillo at 1800. (HEENA LUKE MD) Course & Med Decision Making See Dr. Luke note for details. Discussed presentation, testing and tx. plan with Dr. Winchester- Admit for further Tx. and evaluation. Impression: 1. Respiratory failure hypercarbia 2. Acute on chronic COPD exacerbation 3. Elevated BUN/creatinine 34/2.4 4. Diabetes 152 (MICHAEL BRADY MD) Dragon Disclaimer Dragon Disclaimer This electronic medical record was generated, in whole or in part, using a voice recognition dictation system. (HEENA LUKE MD) Departure Departure: Impression: Primary Impression: Elevated carbon dioxide level Referrals: JOHANNE WINCHESTER MD (PCP) HEENA LUKE MD Aug 19, 2018 17:47 MICHAEL BRADY MD Aug 19, 2018 18:33
[2018-08-19 17:48] LABS: BGAS PH 7.42 (7.35-7.46)
--- NOTE | 2018-08-19 17:51 | RAD ---
Chest radiograph 08/19/2018 4:32 PM INDICATION: Shortness of air, history of COPD COMPARISON: May 12, 2018 TECHNIQUE: Portable upright frontal view of the chest is provided. FINDINGS: The cardiomediastinal silhouette is within normal limits. There are no pleural effusions. There is no pulmonary vascular congestion. There is no pneumothorax. There is similar thickening of the minor fissure. There is subsegmental atelectasis or scarring in the right upper lobe along the minor fissure. No significant osseous abnormality is identified. IMPRESSION: No acute cardiopulmonary process. Electronically signed by: Chaya Haywood MD (08/19/2018 5:48 PM) [facility]
[2018-08-19 18:11] LABS: BASO % 0 % (0-3); EOS # 0.1 x10^3/uL (0.0-0.7); EOS % 1 % (0-3); HEMATOCRIT 39.5 % (39.0-53.0); HEMOGLOBIN 13.1 g/dL (13.0-17.5); LYMPH # 1.3 x10^3/uL (1.0-4.8); LYMPH % 17 % (24-48); MEAN CORPUSCULAR HEMOGLOBIN 31 pg (25-35); MEAN CORPUSCULAR HGB CONC 33 g/dL (31-37); MEAN CORPUSCULAR VOLUME 95 fL (79-100); MONO # 0.6 x10^3/uL (0.0-1.1); MONO % 8 % (0-9); NEUT % 75 % (31-73); PLATELET COUNT 247 x10^3/uL (140-400); RED BLOOD COUNT 4.17 x10^6/uL (4.30-5.70); RED CELL DISTRIBUTION WIDTH 13.1 % (11.5-14.5)
[2018-08-19 18:27] LABS: ALBUMIN 3.6 g/dL (3.4-5.0); CALCIUM 9.7 mg/dL (8.5-10.1); CREATININE 2.4 mg/dL (0.7-1.3); GFR 25.6; POTASSIUM 3.9 mmol/L (3.5-5.1); TOTAL BILIRUBIN 0.4 mg/dL (0.2-1.0); TOTAL PROTEIN 7.3 g/dL (6.4-8.2)
[2018-08-19] MEDS ORDERED: cefTRIAXone SODIUM 1 GM VIAL ONE (19:15)
[2018-08-19] MEDS ORDERED: IV NORMAL SALINE 50ML 50 ML ONE (19:15)
[2018-08-19] MEDS ORDERED: ONDANSETRON PF 4 MG/2 ML VIAL. IV PRN (19:15)
[2018-08-19] MEDS ORDERED: AZITHROMYCIN 250 MG TABLET. PO ONE (19:15)
[2018-08-19] MEDS ORDERED: VANCOMYCIN PER PHARMACY MC PRN (19:15)
[2018-08-19] MEDS: IPRATRPIUM/ALBUTEROL 0.5/2.5MG 3 ML NEBU. NEB SCH (20:28)
[2018-08-19] MEDS ORDERED: IV RINGERS SOLUTION,LACTATED 1,000 ML IV SCH ×2 (21:00→21:15)
[2018-08-19] MEDS ORDERED: APIXABAN 2.5 MG TABLET PO SCH (21:00)
[2018-08-19 21:18] LABS: BACTERIA,URINE FEW /HPF (0-FEW); BILIRUBIN,URINE NEG (NEG); CLARITY,URINE CLEAR; COLOR,URINE YELLOW; GLUCOSE,URINE 100 mg/dL (NEG); HYALINE CASTS, URINE OCC /HPF; NITRITE,URINE NEG (NEG); RBC,URINE 0 /HPF (0-2); SQUAMOUS EPITHELIAL CELL,UR OCC /LPF; UROBILINOGEN,URINE 1 mg/dL (0.2 mg/dL); WBC,URINE OCC /HPF (0-4)
[2018-08-19 21:20] VITALS: BP 179/66
[2018-08-19] MEDS: IV NORMAL SALINE 1,000ML 1,000 ML IV SCH (21:30)
[2018-08-19] MEDS: VANCOMYCIN PER PHARMACY MC PRN (21:52)
[2018-08-19] MEDS: APIXABAN 2.5 MG TABLET PO SCH (21:53)
[2018-08-19] MEDS ORDERED: VANCOMYCIN 2 GM in IV NORMAL SALINE 500ML 500 ML IV ONE (22:00)
[2018-08-19] MEDS ORDERED: MICONAZOLE NITRATE 2% TOPICAL POWDER 85GM JAR. TP PRN (23:00)
[2018-08-19] MEDS ORDERED: ONDANSETRON ODT 4 MG TAB.RAPDIS PO PRN (23:00)
[2018-08-19] MEDS ORDERED: ACETAMINOPHEN 325 MG TABLET PO PRN (23:00)
[2018-08-19] MEDS ORDERED: BISACODYL TAB 5 MG TABLET.DR. PO PRN (23:00)
[2018-08-19] MEDS ORDERED: MAGNESIUM HYDROXIDE 2,400 MG/30 ML ORAL.SUSP. PO PRN (23:00)
[2018-08-19] MEDS ORDERED: MAGN400O7 PO (23:07)
[2018-08-19] MEDS ORDERED: GUAI237L98 PO (23:07)
[2018-08-19] MEDS ORDERED: GLIM4TAB PO (23:12)
[2018-08-19] MEDS ORDERED: MICO85PO4 TP (23:13)
[2018-08-20 05:18] VITALS: BP 148/76
[2018-08-20] MEDS: IPRATRPIUM/ALBUTEROL 0.5/2.5MG 3 ML NEBU. NEB SCH ×4 (05:21→21:36)
[2018-08-20 06:56] LABS: BASO % 0 % (0-3); EOS % 0 % (0-3); HEMATOCRIT 35.5 % (39.0-53.0); LYMPH # 0.8 x10^3/uL (1.0-4.8); LYMPH % 11 % (24-48); MEAN CORPUSCULAR HEMOGLOBIN 32 pg (25-35); MEAN CORPUSCULAR HGB CONC 34 g/dL (31-37); MEAN CORPUSCULAR VOLUME 94 fL (79-100); MONO # 0.1 x10^3/uL (0.0-1.1); MONO % 1 % (0-9); NEUT % 88 % (31-73); PLATELET COUNT 200 x10^3/uL (140-400); RED BLOOD COUNT 3.78 x10^6/uL (4.30-5.70); RED CELL DISTRIBUTION WIDTH 13.1 % (11.5-14.5); WHITE BLOOD COUNT 6.9 x10^3/uL (4.0-11.0)
[2018-08-20 07:00] LABS: CALCIUM 9.5 mg/dL (8.5-10.1); CREATININE 2.2 mg/dL (0.7-1.3); GFR 28.3; POTASSIUM 3.5 mmol/L (3.5-5.1)
[2018-08-20 07:25] VITALS: BP 111/65
[2018-08-20] MEDS: POLYETHYLENE GLYCOL 3350 17 GM PACKET. PO SCH (08:29)
[2018-08-20] MEDS: CLOPIDOGREL BISULFATE 75 MG TABLET PO SCH (08:30)
[2018-08-20] MEDS: LACTOBACILLUS RHAMNOSUS GG 1 CAPSULE. PO SCH ×2 (08:30→21:17)
[2018-08-20] MEDS: DOCUSATE SODIUM 100 MG CAPSULE PO SCH ×2 (08:30→21:17)
[2018-08-20] MEDS: APIXABAN 2.5 MG TABLET PO SCH ×2 (08:31→21:17)
[2018-08-20] MEDS: GLIMEPIRIDE 2 MG TABLET PO SCH (08:31)
[2018-08-20] MEDS: clonazePAM 0.5 MG TABLET PO SCH ×2 (08:31→21:15)
[2018-08-20] MEDS: METOPROLOL TART IMMED RELEASE 50 MG TABLET PO SCH ×2 (08:31→21:18)
[2018-08-20] MEDS: FAMOTIDINE 20 MG TABLET PO SCH (08:31)
[2018-08-20] MEDS: MULTIVITAMIN with MINERAL TABLET. PO SCH (08:31)
[2018-08-20] MEDS: FLUTICASONE 50MCG/NASAL SPRAY 16GM BOTTLE. NS SCH ×2 (08:32→21:14)
[2018-08-20] MEDS ORDERED: VANCOMYCIN 1 GM in IV NORMAL SALINE 250ML 250 ML IV SCH ×4 (09:00)
[2018-08-20] MEDS ORDERED: methylPREDNISolone SOD SUCC PF 125 MG/2 ML VIAL. IV SCH (09:00)
[2018-08-20] MEDS ORDERED: FUROSEMIDE 40 MG TABLET PO SCH (09:00)
[2018-08-20] MEDS ORDERED: POTASSIUM CHLORIDE 20 MEQ TABLET.ER. PO SCH (09:00)
[2018-08-20] MEDS ORDERED: AZITHROMYCIN 250 MG TABLET. PO SCH ×2 (09:00)
[2018-08-20] MEDS: IV NORMAL SALINE 1,000ML 1,000 ML IV SCH (10:50)
--- NOTE | 2018-08-20 11:34 | EKG ---
[address] [address] Test Date: 2018-08-19 Test Time: 18:02:53 Pat Name: SHILPI AQUINO Department: Room: [facility] 1 Gender: M Group Home Counselor: DAVE : 1930 Requested By: HEENA LUKE Order Number: [id number] Reading MD: Mustapha Thao Measurements Intervals Reyno Rate: 67 P: 6 MT: 166 QRS: 18 QRSD: 128 T: -4 QT: 430 QTc: 457 Interpretive Statements SINUS RHYTHM RIGHT BUNDLE BRANCH BLOCK Electronically Signed On 08-24-2018 10:38:04 MATERIAL HANDLER 2ND SHIFT by Mustapha Thao
[2018-08-20 12:25] VITALS: BP 108/54
[2018-08-20 15:42] VITALS: BP 121/63
[2018-08-20] MEDS ORDERED: metOLazone 2.5 MG TABLET PO SCH (16:00)
[2018-08-20] MEDS: POTASSIUM CHLORIDE 20 MEQ TABLET.ER. PO SCH (17:32)
--- NOTE | 2018-08-20 18:16 | HP ---
ADMIT DATE: 08/19/2018 HISTORY OF PRESENT ILLNESS: The patient is an 87-year-old male patient, who is a resident at [facility] and who apparently has been complaining of increasing shortness of breath, cough with sputum. His lab work showed that his bicarbonate was worsening. He also complained of marked swelling of both lower extremities and given that it is difficult to check serial blood gases. I recommended the patient be transferred to the hospital for further evaluation. He was seen in the Emergency Room and his chest x-ray showed that the cardiomediastinal silhouette is within normal limits. There are no pleural effusions, no pulmonary vascular congestion. No pneumothorax. There is similar thickening of the minor fissure. There is subsegmental atelectasis or scarring in the right upper lobe along with the minor fissure. His white cell count was normal. His blood gases surprisingly showed a pH of 7.42, pCO2 of 71, pO2 of 114, bicarbonate of 47. His D-dimer was slightly high; however, he is already on Eliquis and his kidney function showed that his creatinine was slightly high at 2.4. His nasal screen for MRSA by PCR was positive. The patient was admitted with chronic hypoxic hypercapnic respiratory failure, chronic obstructive pulmonary disease, chronic renal failure, bilateral lower extremity edema, type 2 diabetes that seems to be much better controlled. My plan is obviously to continue with the bronchodilators. Continue with steroids. I did also start him on IV antibiotics for healthcare-associated pneumonia in the form of vancomycin as well as levofloxacin. We will monitor his labs closely and decide the further management accordingly. PAST MEDICAL HISTORY: Significant for hypertension, hyperlipidemia, chronic diastolic congestive heart failure, right middle cerebral artery territory infarct with left-sided hemiplegia, paroxysmal atrial fibrillation, rate controlled, well anticoagulated, peripheral arterial disease, status post stent deployment, anxiety and hearing loss. PAST SURGICAL HISTORY: Significant for back surgery and stent deployment to his lower extremity. FAMILY HISTORY: Both his parents of old age. SOCIAL HISTORY: He is , currently residing at [facility], has 2 daughters, retired raman, ex-smoker and drinker, quit few years ago. He uses a walker. He is normally on 2-3 liters of oxygen by nasal cannula. ALLERGIES: SULFA DRUGS, PENICILLIN AND IBUPROFEN. MEDICATIONS: He is currently on following medications with home medication. He is on ipratropium bromide, albuterol inhaler by nebulizer 3 times a day and Spiriva inhaler once a day, apixaban 2.5 mg twice a day, Plavix 75 mg once a day, atorvastatin calcium 20 mg at bedtime, metoprolol tartrate 50 mg p.o. b.i.d., diltiazem 180 mg once a day, acetaminophen 650 mg every 4 hours as needed, clonazepam 0.5 mg twice a day, potassium chloride 20 mEq twice a day, furosemide 60 mg p.o. daily. He is on metolazone 2.5 mg 3 times a week, Mucinex 200 mg twice a day, Flonase 2 sprays to each nostril daily, bisacodyl 10 mg tablet once a day and Colace 100 mg twice a day, magnesium hydroxide 400 mg p.o. daily, polyethylene glycol 17 grams daily, and ondansetron 4 mg every 8 hours, famotidine 20 mg twice a day, lactobacillus rhamnosus for Culturelle twice a day, prednisone 10 mg daily. He is on glimepiride 2 mg daily, miconazole nitrate powder twice a day, multivitamin 1 tablet once a day. PHYSICAL EXAMINATION: GENERAL: On arrival to the Emergency Room, the patient looked well and was clearly in no apparent respiratory distress. No pallor, jaundice, cyanosis, or thyromegaly. No jugular distention with marked bilateral lower limb edema. VITAL SIGNS: His heart rate was 80, blood pressure 179/66, temperature was 97.9, respiratory rate 20, and oxygen saturation was 95% on 2 liters of oxygen by nasal cannula. HEAD, EYES, EARS, NOSE, AND THROAT: Showed normocephalic, atraumatic. NECK: Supple. HEART: Showed normal first and second sounds. No gallop, rub or murmur. CHEST: Shows central trachea, equally reduced expansion, reduced air entry, expansion with crepitation, mostly on the right side posteriorly, very few scattered rhonchi. ABDOMEN: Distended, soft, nontender. No guarding or rigidity. No organomegaly. All hernial orifices intact. Bowel sounds normal. NEUROLOGIC: He is very hard of hearing. Otherwise, his cranial nerves are intact. He has left-sided hemiparesis; however, the patient is able to ambulate with a walker. He has marked bilateral lower extremity edema. LABORATORY DATA: His lab work on arrival showed a white cell count of 8000, hemoglobin 13, hematocrit 39, MCV 95, and platelet count 247. His blood gas showed a pH of 7.42, pCO2 of 71, pO2 of 114, bicarbonate 47, oxygen saturation was 98% on FiO2 of 34%. His chemistry showed a serum sodium 145, potassium 3.9, chloride 97, bicarbonate 51, BUN 34, creatinine 2.4, estimated GFR was 25 mL per minute, his glucose 152, calcium was 9.7. Total bilirubin, AST, ALT, alkaline phosphatase were normal. Total protein was 7.3, albumin was 3.6. Urinalysis was unremarkable. His prothrombin time was 10, INR of 1, aPTT was 22. D-dimer was 0.58. His nasal screen for MRSA by PCR was positive. His chest x-ray showed that there are no pleural effusion, no pulmonary vascular congestion. There is no pneumothorax. There is similar thickening of the minor fissure. There is subsegmental atelectasis or scarring in the right upper lobe along the minor fissures. The patient was admitted with diagnosis of acute on chronic hypoxic hypercapnic respiratory failure, chronic obstructive pulmonary disease, chronic diastolic congestive heart failure, atrial fibrillation, rate controlled, well anticoagulated. The patient has marked bilateral lower extremity edema. On his last admission, he has had an echocardiogram done showed that his left ventricular systolic function is normal, ejection fraction was 55-60%, has normal left ventricular segmental wall motion, trans-mitral Doppler flow pattern is grade 1 abnormal relaxation pattern, trace mitral regurgitation, trace tricuspid regurgitation. There is no evidence of significant pericardial effusion. PLAN: My plan is to continue with the steroids, IV antibiotics, and inhalers. We will follow him closely and adjust medication accordingly. JOHANNE MIXON MD DR: IAN/jaida JOB#: [id number] / [id number]
[2018-08-20 19:27] VITALS: BP 117/53
[2018-08-20 21:09] VITALS: BP 137/60
[2018-08-20] MEDS: VANCOMYCIN 1.75 GM in IV NORMAL SALINE 500ML 500 ML IV SCH (21:15)
[2018-08-20] MEDS: methylPREDNISolone SOD SUCC PF 40 MG/ML VIAL. IV SCH (21:15)
[2018-08-20] MEDS: ATORVASTATIN CALCIUM 20 MG TABLET PO SCH (21:17)
[2018-08-21 05:48] VITALS: BP 130/67
[2018-08-21] MEDS: IPRATRPIUM/ALBUTEROL 0.5/2.5MG 3 ML NEBU. NEB SCH ×4 (06:03→20:53)
[2018-08-21 06:57] LABS: CALCIUM 9.1 mg/dL (8.5-10.1); CREATININE 2.1 mg/dL (0.7-1.3); GFR 29.9
[2018-08-21] MEDS: FUROSEMIDE 100 MG/10 ML VIAL IVP SCH (08:19)
[2018-08-21] MEDS: GLIMEPIRIDE 2 MG TABLET PO SCH (08:20)
[2018-08-21] MEDS: methylPREDNISolone SOD SUCC PF 40 MG/ML VIAL. IV SCH ×2 (08:20→20:34)
[2018-08-21] MEDS: FAMOTIDINE 20 MG TABLET PO SCH (08:20)
[2018-08-21] MEDS: CLOPIDOGREL BISULFATE 75 MG TABLET PO SCH (08:20)
[2018-08-21] MEDS: LACTOBACILLUS RHAMNOSUS GG 1 CAPSULE. PO SCH ×2 (08:20→20:33)
[2018-08-21] MEDS: clonazePAM 0.5 MG TABLET PO SCH ×2 (08:20→20:33)
[2018-08-21] MEDS: metOLazone 2.5 MG TABLET PO SCH ×2 (08:21→16:00)
[2018-08-21] MEDS: APIXABAN 2.5 MG TABLET PO SCH ×2 (08:21→20:33)
[2018-08-21] MEDS: FLUTICASONE 50MCG/NASAL SPRAY 16GM BOTTLE. NS SCH (08:22)
[2018-08-21] MEDS: DOCUSATE SODIUM 100 MG CAPSULE PO SCH ×2 (08:22→20:32)
[2018-08-21] MEDS: METOPROLOL TART IMMED RELEASE 50 MG TABLET PO SCH ×2 (08:22→20:34)
[2018-08-21] MEDS: POTASSIUM CHLORIDE 20 MEQ TABLET.ER. PO SCH ×2 (08:24→17:27)
[2018-08-21] MEDS: POLYETHYLENE GLYCOL 3350 17 GM PACKET. PO SCH (08:24)
[2018-08-21] MEDS: MULTIVITAMIN with MINERAL TABLET. PO SCH (08:24)
[2018-08-21 10:52] VITALS: BP 104/65
[2018-08-21 15:03] VITALS: BP 141/71
[2018-08-21 19:55] VITALS: BP 134/69
[2018-08-21] MEDS: ATORVASTATIN CALCIUM 20 MG TABLET PO SCH (20:33)
[2018-08-21 21:45] LABS: VANC TR 15.1 mcg/mL (10.0-20.0)
[2018-08-21] MEDS: VANCOMYCIN 1.75 GM in IV NORMAL SALINE 500ML 500 ML IV SCH (22:31)
[2018-08-21 23:07] LABS: HEMOGLOBIN A1C 6.5 % (4.8-5.6)
--- NOTE | 2018-08-22 01:04 | PN ---
DATE: 08/21/2018 SUBJECTIVE: The patient is resting, slightly propped up in bed, in no apparent respiratory distress. He is awake and alert. His only main complaint has been that he has been in and out of the bathroom multiple times as we changed him to IV Lasix. His nursing staff did not voice any concern except that his blood cultures have grown gram-positive cocci in pairs and chains suggestive of strep in 2 out of 2 bottles. PHYSICAL EXAMINATION: GENERAL: When I saw him this afternoon, he looked well and was clearly in no apparent respiratory distress. No pallor, jaundice, cyanosis, or thyromegaly. No jugular venous distension. No limb edema. VITAL SIGNS: His heart rate was 66, blood pressure 141/71, temperature was 97.5, respiratory rate 20, and oxygen saturation was 98% on 2 liters of oxygen. HEAD, EYES, EARS, NOSE AND THROAT: Showed normocephalic, atraumatic. NECK: Supple. HEART: Showed normal first and second sounds. No gallop, rub or murmur. CHEST: Clear to auscultation. No crepitation or rhonchi. ABDOMEN: Distended, soft, nontender. NEUROLOGIC: He is awake, alert, responding appropriately. All cranial nerves are intact. He has left-sided hemiparesis. His intake over the last 24 hours was 670, output was 550. LABORATORY DATA: As of this morning, his serum sodium was 142, potassium 4, chloride 97, bicarbonate 42, anion gap of 3, BUN 44, creatinine 2.1, estimated GFR was 29 mL per minute, glucose 174, calcium was 9.1, magnesium 2. His white cell count was 6900, hemoglobin 12, hematocrit 35, MCV 94 and platelet count 200,000. ASSESSMENT: 1. Acute on chronic hypoxic hypercapnic respiratory failure. 2. Chronic obstructive pulmonary disease exacerbation. 3. Bronchopneumonia with growth of gram-positive cocci in his blood culture. 4. Chronic diastolic congestive heart failure. 5. Atrial fibrillation, rate controlled, well anticoagulated. 6. Left-sided hemiparesis. PLAN: My plan is to continue with IV antibiotic. Continue with steroids. Continue with bronchodilators. I will await the result of the culture and sensitivity. Once it becomes available, we will switch him to appropriate antibiotic to be given orally. JOHANNE MIXON MD DR: Eduar JOB#: [id number] / [id number]
[2018-08-22] MEDS: IPRATRPIUM/ALBUTEROL 0.5/2.5MG 3 ML NEBU. NEB SCH ×4 (05:22→19:38)
[2018-08-22 07:50] LABS: CREATININE 2.2 mg/dL (0.7-1.3); GFR 28.3; POTASSIUM 4.2 mmol/L (3.5-5.1)
[2018-08-22] MEDS: VANCOMYCIN PER PHARMACY MC PRN (08:01)
[2018-08-22 08:30] VITALS: BP 130/61
[2018-08-22] MEDS: clonazePAM 0.5 MG TABLET PO SCH ×2 (08:47→21:26)
[2018-08-22] MEDS: FUROSEMIDE 100 MG/10 ML VIAL IVP SCH (08:47)
[2018-08-22] MEDS: methylPREDNISolone SOD SUCC PF 40 MG/ML VIAL. IV SCH ×2 (08:47→21:28)
[2018-08-22] MEDS: CLOPIDOGREL BISULFATE 75 MG TABLET PO SCH (08:48)
[2018-08-22] MEDS: LACTOBACILLUS RHAMNOSUS GG 1 CAPSULE. PO SCH ×2 (08:48→21:26)
[2018-08-22] MEDS: METOPROLOL TART IMMED RELEASE 50 MG TABLET PO SCH ×2 (08:48→21:28)
[2018-08-22] MEDS: GLIMEPIRIDE 2 MG TABLET PO SCH (08:48)
[2018-08-22] MEDS: MULTIVITAMIN with MINERAL TABLET. PO SCH (08:48)
[2018-08-22] MEDS: POTASSIUM CHLORIDE 20 MEQ TABLET.ER. PO SCH ×2 (08:48→17:38)
[2018-08-22] MEDS: POLYETHYLENE GLYCOL 3350 17 GM PACKET. PO SCH (08:49)
[2018-08-22] MEDS: FAMOTIDINE 20 MG TABLET PO SCH (08:49)
[2018-08-22] MEDS: APIXABAN 2.5 MG TABLET PO SCH ×2 (08:49→21:26)
[2018-08-22] MEDS: DOCUSATE SODIUM 100 MG CAPSULE PO SCH ×2 (08:49→21:26)
[2018-08-22] MEDS: FLUTICASONE 50MCG/NASAL SPRAY 16GM BOTTLE. NS SCH (08:55)
[2018-08-22 11:16] VITALS: BP 127/81
--- NOTE | 2018-08-22 14:47 | PN ---
DATE: 08/22/2018 SUBJECTIVE: The patient is sitting comfortably in his chair, in no apparent respiratory distress. On questioning him, he denied any complaint. Nursing staff did not voice any concern that he has an uneventful night. PHYSICAL EXAMINATION: GENERAL: When I examined him, he looked well and was clearly in no apparent respiratory distress. No pallor, jaundice, cyanosis or thyromegaly. No jugular venous distention. No limb edema. VITAL SIGNS: His heart rate was 63, blood pressure was 130/61, temperature was 98.2, respiratory rate 20, and oxygen saturation was 94% and is on 2 liters of oxygen. HEAD, EYES, EARS, NOSE AND THROAT: Showed normocephalic, atraumatic. NECK: Supple. HEART: Showed normal first and second heart sounds. No gallop, rub or murmur. CHEST: Clear to auscultation. No crepitation or rhonchi. ABDOMEN: Slightly distended, soft, nontender. No guarding or rigidity. No organomegaly. Hernial orifice intact. Bowel sounds normal. NEUROLOGIC: He is awake, alert, responding appropriately. All his cranial nerves are intact. He has left-sided hemiparesis. His intake over the last 24 hours was 2360, output was 2075. LABORATORY DATA: As of this morning, his serum sodium was 143, potassium 4.2, chloride 99, bicarbonate 41, anion gap of 3, BUN 50, creatinine 2.2, estimated GFR was 28 mL per minute, glucose 164, calcium was 9. His blood culture has grown gram-positive cocci in pairs and chains, suggestive of strep in 2 out of 2 bottles. ASSESSMENT: 1. Acute on chronic hypoxic and hypercapnic respiratory failure. 2. Chronic obstructive pulmonary disease exacerbation. 3. Bronchopneumonia, growth of gram-positive cocci in blood culture. 4. Chronic diastolic congestive heart failure. 5. Atrial fibrillation, rate controlled, well anticoagulated. 6. Left-sided hemiparesis. PLAN: The plan is to continue with IV antibiotic. Continue with IV steroids and bronchodilators. I discontinued his IV Lasix, switch him back to oral tomorrow. Await the results of culture and sensitivity and once that becomes available, he can be discharged back to [facility] to continue on oral antibiotic. JOHANNE MIXON MD DR: IAN/jaida JOB#: [id number] / [id number]
[2018-08-22 15:18] VITALS: BP 144/68
[2018-08-22 19:40] VITALS: BP 144/75
[2018-08-22] MEDS: ATORVASTATIN CALCIUM 20 MG TABLET PO SCH (21:26)
[2018-08-22] MEDS: VANCOMYCIN 1.75 GM in IV NORMAL SALINE 500ML 500 ML IV SCH (22:00)
[2018-08-22 23:13] VITALS: BP 153/82
[2018-08-23 03:30] VITALS: BP 137/81
[2018-08-23] MEDS: IPRATRPIUM/ALBUTEROL 0.5/2.5MG 3 ML NEBU. NEB SCH ×4 (05:06→20:14)
[2018-08-23 07:00] VITALS: BP 124/57
[2018-08-23 07:21] LABS: CALCIUM 8.9 mg/dL (8.5-10.1); GFR 31.6; POTASSIUM 4.3 mmol/L (3.5-5.1)
[2018-08-23] MEDS: FLUTICASONE 50MCG/NASAL SPRAY 16GM BOTTLE. NS SCH (09:00)
[2018-08-23] MEDS: MULTIVITAMIN with MINERAL TABLET. PO SCH (10:11)
[2018-08-23] MEDS: APIXABAN 2.5 MG TABLET PO SCH ×2 (10:12→20:25)
[2018-08-23] MEDS: GLIMEPIRIDE 2 MG TABLET PO SCH (10:12)
[2018-08-23] MEDS: FUROSEMIDE 20 MG TABLET PO SCH (10:12)
[2018-08-23] MEDS: clonazePAM 0.5 MG TABLET PO SCH ×2 (10:12→20:25)
[2018-08-23] MEDS: metOLazone 2.5 MG TABLET PO SCH (10:12)
[2018-08-23] MEDS: LACTOBACILLUS RHAMNOSUS GG 1 CAPSULE. PO SCH ×2 (10:12→20:25)
[2018-08-23] MEDS: CLOPIDOGREL BISULFATE 75 MG TABLET PO SCH (10:13)
[2018-08-23] MEDS: DOCUSATE SODIUM 100 MG CAPSULE PO SCH ×2 (10:14→20:25)
[2018-08-23] MEDS: POTASSIUM CHLORIDE 20 MEQ TABLET.ER. PO SCH ×2 (10:14→18:01)
[2018-08-23] MEDS: methylPREDNISolone SOD SUCC PF 40 MG/ML VIAL. IV SCH ×2 (10:14→20:24)
[2018-08-23] MEDS: POLYETHYLENE GLYCOL 3350 17 GM PACKET. PO SCH (10:15)
[2018-08-23] MEDS: METOPROLOL TART IMMED RELEASE 50 MG TABLET PO SCH ×2 (10:15→20:24)
[2018-08-23] MEDS: FAMOTIDINE 20 MG TABLET PO SCH (10:15)
[2018-08-23 12:26] VITALS: BP 129/68
[2018-08-23 15:00] VITALS: BP 147/78
--- NOTE | 2018-08-23 17:46 | PN ---
DATE: SUBJECTIVE: The patient is sitting comfortably in his chair, in no apparent respiratory distress. He is awake and alert. On questioning him, he denied any complaint. The nursing staff did not voice any concerns as he had an uneventful night. PHYSICAL EXAMINATION: GENERAL: When I examined him, he looked well and was clearly in no apparent respiratory distress. No pallor, jaundice, cyanosis or thyromegaly. No jugular venous distention, but mild bilateral lower extremity edema. VITAL SIGNS: His heart rate was 65, blood pressure was 124/57, temperature was 97.3, respiratory rate was 18 and oxygen saturation was 96% on 2 liters of oxygen. HEAD, EYES, EARS, NOSE AND THROAT: Showed normocephalic, atraumatic. NECK: Supple. HEART: Showed normal first and second heart sounds with no gallop, rub or murmur. CHEST: Clear to auscultation. No crepitation or rhonchi. ABDOMEN: Distended, soft, nontender. NEUROLOGIC: He is awake, alert, responding appropriately. All cranial nerves intact. He moves extremities without difficulty; ambulates with a walker, has residual left-sided hemiparesis. His intake over the last 24 hours was 1883, output was 1400. LABORATORY DATA: Showed a white cell count 6900, hemoglobin 12, hematocrit 35, MCV was 94, and platelet count 200,000. His serum sodium was 142, potassium 4.3, chloride 101, bicarbonate 42, anion gap 1, BUN of 53, creatinine 2, estimated GFR was 31 mL per minute, glucose 153, calcium was 8.9. ASSESSMENT: 1. Acute on chronic hypoxic hypercapnic respiratory failure, improving. 2. Chronic obstructive pulmonary disease exacerbation, improving. 3. Bronchopneumonia with growth of gram-positive cocci in blood culture, the identification and sensitivity is still pending. 4. Chronic diastolic congestive heart failure, clinically well compensated. 5. Atrial fibrillation, rate controlled, well anticoagulated. 6. Residual left-sided hemiparesis. PLAN: To continue the IV antibiotics, increase steroids, and bronchodilator. Await the result of culture and sensitivity. Unfortunately, the patient is allergic to PENICILLIN; therefore, we have to wait the result of the culture and sensitivity before switching to oral medication. JOHANNE MIXON MD DR: IAN/jaida JOB#: [id number] / [id number]
[2018-08-23 19:53] VITALS: BP 123/80
[2018-08-23] MEDS: ATORVASTATIN CALCIUM 20 MG TABLET PO SCH (20:25)
[2018-08-23] MEDS ORDERED: guaiFENesin 300 MG/15 ML LIQUID PO PRN (22:15)
[2018-08-23 22:47] LABS: VANC TR 19.6 mcg/mL (10.0-20.0)
[2018-08-23] MEDS: VANCOMYCIN 1.75 GM in IV NORMAL SALINE 500ML 500 ML IV SCH (23:02)
[2018-08-23 23:31] VITALS: BP 136/74
[2018-08-24] MEDS: IPRATRPIUM/ALBUTEROL 0.5/2.5MG 3 ML NEBU. NEB SCH ×2 (05:11→10:41)
[2018-08-24 05:43] VITALS: BP 142/75
[2018-08-24 06:48] LABS: HEMOGLOBIN 12.2 g/dL (13.0-17.5); RED BLOOD COUNT 3.86 x10^6/uL (4.30-5.70); RED CELL DISTRIBUTION WIDTH 13.1 % (11.5-14.5); WHITE BLOOD COUNT 9.1 x10^3/uL (4.0-11.0)
[2018-08-24 06:59] LABS: CALCIUM 8.7 mg/dL (8.5-10.1); CREATININE 1.9 mg/dL (0.7-1.3); GFR 33.5; POTASSIUM 4.4 mmol/L (3.5-5.1)
[2018-08-24] MEDS: methylPREDNISolone SOD SUCC PF 40 MG/ML VIAL. IV SCH (08:32)
[2018-08-24] MEDS: MULTIVITAMIN with MINERAL TABLET. PO SCH (08:33)
[2018-08-24] MEDS: APIXABAN 2.5 MG TABLET PO SCH (08:33)
[2018-08-24] MEDS: METOPROLOL TART IMMED RELEASE 50 MG TABLET PO SCH (08:33)
[2018-08-24] MEDS: DOCUSATE SODIUM 100 MG CAPSULE PO SCH (08:33)
[2018-08-24] MEDS: LACTOBACILLUS RHAMNOSUS GG 1 CAPSULE. PO SCH (08:33)
[2018-08-24] MEDS: CLOPIDOGREL BISULFATE 75 MG TABLET PO SCH (08:33)
[2018-08-24] MEDS: FAMOTIDINE 20 MG TABLET PO SCH (08:33)
[2018-08-24] MEDS: GLIMEPIRIDE 2 MG TABLET PO SCH (08:33)
[2018-08-24] MEDS: clonazePAM 0.5 MG TABLET PO SCH (08:34)
[2018-08-24] MEDS: POLYETHYLENE GLYCOL 3350 17 GM PACKET. PO SCH (08:34)
[2018-08-24] MEDS: FUROSEMIDE 20 MG TABLET PO SCH (08:34)
[2018-08-24] MEDS: FLUTICASONE 50MCG/NASAL SPRAY 16GM BOTTLE. NS SCH (08:39)
[2018-08-24] MEDS: POTASSIUM CHLORIDE 20 MEQ TABLET.ER. PO SCH (08:42)
[2018-08-24 10:53] VITALS: BP 136/74
[2018-08-24] MEDS: VANCOMYCIN PER PHARMACY MC PRN (12:07)
[2018-08-24] MEDS ORDERED: LEVO750T31 PO (12:40)
[2018-08-24] MEDS ORDERED: VANCOMYCIN 1.5 GM in IV NORMAL SALINE 500ML 500 ML IV SCH (22:00)
--- NOTE | 2018-09-03 12:35 | DS ---
DATE OF DISCHARGE: 08/24/2018 HOSPITAL COURSE: The patient is an 87-year-old male patient, a resident at [facility], who was admitted with [id number] hypoxic hypercapnic respiratory failure, chronic obstructive pulmonary disease exacerbation and bronchopneumonia. His blood culture has grown Streptococcus sanguinis and he was originally treated with IV Rocephin and Zithromax. Eventually, he was switched to clindamycin and as has remained hemodynamically stable and afebrile, the decision was made to discharge him back to home, stated to continue with oral clindamycin as well as a tapering course of steroids and bronchodilator. PHYSICAL EXAMINATION: GENERAL: When I saw him on the day of discharge, he looked well and was clearly in no apparent respiratory distress. No pallor, jaundice, cyanosis, or thyromegaly. No jugular venous distension. No lower limb edema. VITAL SIGNS: His heart rate was 58, blood pressure was 136/74, temperature was 97.7, respiratory rate 20 and oxygen saturation was 100% on 2 liters of oxygen. HEENT: Examination of the head, eyes, ears, nose and throat showed normocephalic, atraumatic. NECK: Supple. HEART: Showed normal first and second heart sounds. No gallop, rub or murmur. CHEST: Clear to auscultation. No crepitation or rhonchi. ABDOMEN: Distended, soft, nontender. NEUROLOGIC: He was awake, alert, responding appropriately. All his cranial nerves are intact. He has left-sided residual hemiparesis; however, the patient is able to walk with a walker without any assistance. His intake over the last 24 hours was 1600, output was 3550. LABORATORY DATA: His lab work showed a white cell count of 9100, hemoglobin 12, hematocrit 36, MCV 93, and platelet count of 193,000. His chemistry showed a serum sodium 143, potassium 4.4, chloride 102, bicarbonate 41, anion gap of 0, BUN 50, creatinine 1.9, estimated GFR was at 30 mL per minute, his glucose 154 and calcium was 8.7. DISCHARGE MEDICATIONS: He was discharged to [facility] to continue initially on levofloxacin; however, once the culture and sensitivity became available, he was switched to clindamycin 300 mg 4 times a day for 4 more days. He should continue on apixaban 2.5 mg twice a day, acetaminophen 650 mg every 4 hours, atorvastatin calcium 20 mg at bedtime, bisacodyl 5 mg tablet daily as needed for constipation, clonazepam 0.5 mg twice a day, Plavix 75 mg once a day, diltiazem hydrochloride for Cartia XT 180 mg daily, Colace 100 mg twice a day, famotidine 20 mg twice a day, Flonase 2 sprays to each nostril once a day, furosemide 60 mg daily, glimepiride 2 mg daily, Mucinex 600 mg twice a day, ipratropium bromide, albuterol sulfate 3 mL by nebulizer 3 times a day, lactobacillus rhamnosus 1 capsule twice a day, magnesium hydroxide for milk of magnesia 30 mL p.o. daily p.r.n. for constipation, metolazone 2.5 mg 3 times per week, metoprolol tartrate 50 mg twice a day, miconazole nitrate apply topically twice a day, multivitamin with mineral 1 tablet once a day, ondansetron 4 mg every 4 hours, polyethylene glycol for, MiraLax 17 grams daily, potassium chloride 20 mEq once a day, and ipratropium bromide for Spiriva HandiHaler 1 inhalation once a day. FINAL DISCHARGE DIAGNOSES: 1. Acute on chronic hypoxic hypercapnic respiratory failure, improving. 2. Chronic obstructive pulmonary disease exacerbation, also improving. 3. Bronchopneumonia with growth of Gram-positive cocci identified as Streptococcus sanguinis and his blood culture is sensitive to clindamycin. 4. Chronic diastolic congestive heart failure, clinically well compensated. 5. Atrial fibrillation, rate controlled, well anticoagulated. 6. Residual left-sided hemiparesis. JOHANNE MIXON MD DR: IAN/jaida JOB#: [id number] / [id number]
== END 2018-08-24 15:13 | DRG 193 ==
LOC: ER 17:19 → ICU 19:20 → ER 20:54 → 1 SOUTH 08-20 23:21
PROVIDERS: ADMIT Internal Medicine; ATTEND Internal Medicine
DX: J15.4 Pneumonia due to other streptococci (principal); J96.22 Acute and chronic respiratory failure with hypercapnia; J96.21 Acute and chronic respiratory failure with hypoxia; J44.1 Chronic obstructive pulmonary disease with (acute) exacerbation; I50.32 Chronic diastolic (congestive) heart failure; G81.94 Hemiplegia, unspecified affecting left nondominant side; I13.0 Hypertensive heart and chronic kidney disease with heart failure and stage 1 through stage 4 chronic kidney disease, or unspecified chronic kidney disease; J44.0 Chronic obstructive pulmonary disease with (acute) lower respiratory infection; I48.0 Paroxysmal atrial fibrillation; F41.9 Anxiety disorder, unspecified; E11.22 Type 2 diabetes mellitus with diabetic chronic kidney disease; E11.51 Type 2 diabetes mellitus with diabetic peripheral angiopathy without gangrene; E78.00 Pure hypercholesterolemia, unspecified; E78.5 Hyperlipidemia, unspecified; N18.9 Chronic kidney disease, unspecified; Z87.891 Personal history of nicotine dependence; Z95.820 Peripheral vascular angioplasty status with implants and grafts; Z99.81 Dependence on supplemental oxygen; Z79.899 Other long term (current) drug therapy
CPT/HCPCS: 36415; 71045; 80048; 80053; 80202; 81001; 82550; 82803; 82947; 83036; 83605; 83735; 83880; 84484; 85025; 85027; 85379; 85610; 85730; 87040; 87077; 87205; 87641; 93005; 94640; 94760; 96365; 96375; 96376; G0238; J0456; J0696; J1956; J2920; J2930; J3370; J7040; J7620; 99285-25